=== PATIENT | male | born 1950 | race Caucasian/White ===

== ENCOUNTER → 2017-01-02 | Outpatient (CLI) | payer MEDICARE, BC ==
--- NOTE | 2017-01-05 09:42 | DI ---
EXAM: PET/CT SKULL TO THIGH SUBS [place] [facility] [place]ISTORY: ITS.REASON: C34.12 LUNG CA last chemotherapy 01/03/2017. Lung biopsy 2015. COMPARISON: None available. TECHNIQUE: Without intravenous contrast, axial CT images were obtained from the base of the skull through the mid thigh level for attenuation correction and for PET-CT fusion correlation. Then after the administration of approximately 17 mCi of FDG, PET images were obtained from the base of the skull to the mid thigh region. Additionally, the study was reviewed in PET-CT fusion format as well as 3D-format and axial, sagittal, and coronal reformations. Images of the legs were not obtained. The patient's blood glucose at the time of injection was 92 mg/dl. The current background activity in the liver has a max SUV of 4.0. FINDINGS: NECK: Unremarkable. No abnormal increased metabolic activity identified to suggest metastasis in the soft tissues of the neck. CHEST: There is increased metabolic activity associated with a soft tissue prominence between the left posterolateral second and third rib which may represent a pleural soft tissue mass with a max SUV of 3.93. This abuts a spiculated density within the lung at this level. ABDOMEN: There is a soft tissue mass with a low-density center emanating off the posterior aspect of the left kidney with mural nodularity but only has a max SUV of 2.91. This is of uncertain etiology. This may represent a renal cell carcinoma which may have low metabolic activity. Metastatic disease is also a consideration. Traumatic etiology such as a hematoma is also a consideration although has irregular margins. Hypodense lesion seen at the upper pole of left kidney may represent a cyst. No other abnormal areas of increased metabolic activity is seen within the abdomen to suggest metastasis. PELVIS: Unremarkable. No abnormal increased metabolic activity identified to suggest metastasis in the soft tissues of the pelvis. Activity at the right upper pelvis is thought related to the distal right ureter. BONES: There is bony destructive changes involving the left posterolateral third rib abutting the soft tissue mass between the left third and fourth ribs extending from the pleural space. Additional comments: None. IMPRESSION: 1. There is a soft tissue mass at the posterior lateral left pleural space measuring 3.7 x 2.5 cm abutting a spiculated density within the lung and extending into the intercostal space between the left third and fourth ribs with some bony destruction of the adjacent third rib. This likely represents residual or metastatic disease and has a max SUV of 3.93. 2. There is a soft tissue mass emanating from the posterior aspect of the left kidney measuring at least 4.4 cm x 7.3 cm with a low-density center and mural nodularity. This may have a necrotic center with irregular lobulated soft tissue wall. However, this has only a max SUV of 2.91. A renal cell carcinoma must be considered. These may have low metabolic activity. Metastatic disease is also a consideration. Other etiologies such as a hematoma or other traumatic injury is also a consideration. Correlation is suggested. .
== END ==
LOC: IMA 07:28
PROVIDERS: ATTEND Internal Medicine Hematology & Oncology
DX: C34.12 Malignant neoplasm of upper lobe, left bronchus or lung (principal); M79.89 Other specified soft tissue disorders

== ENCOUNTER 2017-01-23 12:10 | Day surgery (SDC) | payer MEDICARE, BC ==
[~2017-01-23] VITALS: Ht 180.3 cm; Wt 75.0 kg
[~2017-01-23 12:10] MED LIST: ALBU18HF2 ORAL INH; BUDE10.2 INH; CEFAZOLIN 1 GRAM INJECTION IV ONE; LIDOCAINE 1% (10mg/ml) 2ml SDV INJ ONE; LISI1TAB11 PO; NEBI5TAB8 PO; NORMAL SALINE 1,000 ML IV PRN; TRAM50TA4 PO
--- OUTSIDE RECORDS SUMMARY | 2017-01-23 12:14 | XMS REPORT | Referral Summary ---
Author Author [facility] Organization [facility] Address Unknown Phone Unavailable Care Team Providers Care Surfacing Machine Operator Name Role Phone Maya House Primary Care Physician [phone] Encounter VC Date(s): 10/28/16 - 10/28/16 [facility] [address] [place] [address] [place] [address] [place] Discharge Diagnosis: Blood in stool Discharge Diagnosis: Lung cancer Discharge Diagnosis: Cancer of kidney Discharge Disposition: 01-Home or Self Care Attending Physician: Luis Reyes MD Admitting Physician: Luis Reyes MD Referring Physician: Salo Ospina MD Vital Signs Most recent to 1 oldest [Reference Range]: Temperature Tympanic 36.8 degC [36.6-38.1 degC] (10/28/16 1:36 PM) Peripheral Pulse 78 bpm Rate [60-100 bpm] (10/28/16 1:36 PM) Respiratory Rate 18 br/min [14-20 br/min] (10/28/16 1:36 PM) Blood Pressure 128/72 mmHg [90-140/60-90 mmHg] (10/28/16 1:36 PM) SpO2 93 % (10/28/16 1:36 PM) Problem List Condition Effective Dates Status Health Status Informant Acute lumbar back Active pain(Confirmed) Benign essential Active hypertension(Confirm ed) COPD (chronic Active obstructive pulmonary disease)(Confirmed) History of Active alcoholism(Confirmed ) Hyponatremia(Confirm Active ed) Tobacco use Active disorder(Confirmed) Vision Active changes(Confirmed) Allergies, Adverse Reactions, Alerts No Known Allergies Medications Bystolic 5 mg oral tablet 1 1/2 tabs, Oral, Daily, # 135 tabs, 1 Refill(s), Pharmacy: [facility] # [id number], 1 1/2 tabs Oral Daily Start Date: 08/14/16 Status: Ordered lisinopril-hydrochlorothiazide 20 mg-12.5 mg oral tablet 1 tabs, Oral, Daily, # 90 tabs, 1 Refill(s), Pharmacy: [facility] #[id number] Start Date: 08/14/16 Stop Date: 02/10/17 Status: Ordered Miscellaneous DME DME Item CT Guided Needle Biopsy Left Kidney DX: Left Kidney Mass (N28.89) Initiate all standing orders for CT Guided Needle Biopsy, See Instructions, # 1 Each, 0 Refill(s), Supply Start Date: 08/28/16 Status: Ordered Miscellaneous DME DME Item CT Guided Needle Biopsy Left Lung DX: R91.8 RAMONA Mass, See Instructions , # 1 Each, 0 Refill(s), Supply Start Date: 09/05/16 Status: Ordered Symbicort 160 mcg-4.5 mcg/inh inhalation aerosol See Instructions, INHALE TWO PUFFS BY MOUTH TWICE A DAY, # 3 Each, 1 Refill(s), Pharmacy: [facility] #[id number] Start Date: 08/14/16 Status: Ordered traMADol 50 mg oral tablet 50 mg 1 tabs, Oral, q12hr, as needed for pain, S. Bharathilons, # 60 tabs, 0 Refill(s ) Start Date: 08/14/16 Status: Ordered Ventolin HFA 90 mcg/inh inhalation aerosol 2 puffs, Inhalation, QID, as needed for wheezing, # 1 Each, 2 Refill(s), Pharmacy: [facility] #[id number], 2 puffs Inhalation QID,PRN:as needed for wheezing Start Date: 02/14/16 Status: Ordered Results No data available for this section Immunizations Given and Recorded Vaccine Date Status Refusal Reason influenza virus vaccine, live 10/03/13 Given influenza virus vaccine, live 09/20/12 Given pneumococcal 23-polyvalent vaccine 08/07/11 Recorded pneumococcal 23-polyvalent vaccine 03/22/01 Recorded tetanus-diphth toxoids (Td) adult/adol 03/22/01 Given Procedures Procedure Date Related Diagnosis Body Site Appendectomy Hernia Social History Social History Type Response Smoking Status Current every day smoker; Type: Cigars; Tobacco use per day: 1 Pack; Number of years: 51 Assessment and Plan Extracted from: Title: Office Visit Note Author: Lius Reyes MD Date: 10/28/16 Assessment/Plan 1.Blood in stool Ordered: Office Visit Level 4 New 39444 2.Lung cancer Ordered: Office Visit Level 4 New 93414 3.Cancer of kidney Ordered: Office Visit Level 4 New 02975 Plan:Conservative management this time. Given his advanced lung cancer andfinding ofinternal hemorrhoidal disease upon anoscopy would not recommend proceeding with colonoscopy at this juncture in time. I didn't spend a fair amount time reviewing the patient's chartand discussing with the patient hisprior CT scan results, PET scan results,and bone scanresults. Patient did havemore questions about his lung cancer and kidney cancer then he did his rectal bleeding. Patient was found to have a large leftapical lung masswith several metastaticmediastinal lymph nodes as well as direct invasion into his chest wall. Bone scan showed an area of increased uptake on the right fourth ribalthough nocorresponding CT scan findings were present to suggesta lytic lesion. Patient was found to havefairly largemass also involving his left kidneyhighly suspicious for that of a renal cell carcinoma. I did providea copy of all his radiographic results.I informed the patient that as my clinical intuition that his rectal bleeding was likelya result of his recent bouts of constipation and internal hemorrhoids. Given the fact that his rectal bleeding is subsiding and the fact that he is undergoingchemotherapy for metastatic lung cancerrecommendedthat we not proceed with colonoscopy at this time. I informed the patient that if he began to experience increasing rectal bleedingthat he should contact the office and that we would likely prescribed him somehydrocortisone suppositories. If this did not result in any improvement then at that point time mayconsider proceeding with the colonoscopy/endoscopic evaluation. Patient was instructed return back to his oncologist for his ongoing care.
--- OUTSIDE RECORDS SUMMARY | 2017-01-23 12:14 | XMS REPORT | Referral Summary ---
Author Organization Unknown Address Unknown Phone Unavailable Care Team Providers Care Database Developer Name Role Phone Maya House Primary Care Physician [phone] Encounter VC Date(s): 11/13/14 - 11/13/14 [facility] [address] [place] [address] [place] [id number] Discharge Diagnosis: Hypertension NOS Discharge Diagnosis: COPD (chronic obstructive pulmonary disease) Discharge Diagnosis: Tobacco use disorder Discharge Diagnosis: Screening PSA (prostate specific antigen) Discharge Disposition: Home or Self Care Attending Physician: Tru House MD Admitting Physician: Tru House MD Vital Signs Most recent to 1 oldest [Reference Range]: Blood Pressure 130/90 mmHg [90-140/60-90 mmHg] (11/13/14 1:59 PM) Problem List Condition Effective Dates Status Health Status Informant Benign essential Active hypertension(Confirm ed) COPD (chronic Active obstructive pulmonary disease)(Confirmed) History of Active alcoholism(Confirmed ) Tobacco use Active disorder(Confirmed) Allergies, Adverse Reactions, Alerts No Known Allergies Medications Bystolic 5 mg oral tablet 1 1/2 tabs, Oral, Daily, # 135 tabs, 0 Refill(s), Pharmacy: [facility] # [id number], 1 1/2 tabs Oral Daily Start Date: 10/30/14 Status: Ordered lisinopril-hydrochlorothiazide 20 mg-12.5 mg oral tablet 1 tabs, Oral, Daily, # 90 tabs, 1 Refill(s), Pharmacy: [facility] #[id number] Start Date: 11/13/14 Status: Ordered Symbicort 160 mcg-4.5 mcg/inh inhalation aerosol 2 puffs, Inhalation, BID, # 3 Each, 0 Refill(s), [facility] [id number] Start Date: 10/30/14 Stop Date: 01/28/15 Status: Ordered Ventolin HFA 90 mcg/inh inhalation aerosol 2 puffs, Inhalation, q6hr, as needed for wheezing, # 1 Each, 2 Refill(s), Pharmacy: [facility] #[id number], 2 puffs Inhalation q6hr,PRN:as needed for wheezing Start Date: 11/13/14 Status: Ordered Results Hematology Most recent to 1 oldest [Reference Range]: WBC [4.8-10.8 K/uL] 5.5 K/uL (11/13/14 2:30 PM) RBC [4.60-6.20 M/uL] 4.68 M/uL (11/13/14 2:30 PM) Hgb [14.0-18.0 14.3 gm/dL gm/dL] (11/13/14 2:30 PM) Hct [42.0-52.0 %] 38.5 % *LOW* (11/13/14 2:30 PM) MCV [82.0-99.0 fL] 82.3 fL (11/13/14 2:30 PM) MCH [27.0-32.0 pg] 30.6 pg (11/13/14 2:30 PM) MCHC [32.0-36.0 37.1 gm/dL gm/dL] *HI* (11/13/14 2:30 PM) RDW [11.5-14.5 %] 12.3 % (11/13/14 2:30 PM) Platelet [150-400 202 K/uL K/uL] (11/13/14 2:30 PM) MPV [8.8-14.8 fL] 9.5 fL (11/13/14 2:30 PM) Immature 0.0 % Granulocytes (11/13/14 2:30 PM) [0.0-1.0 %] Neutrophils [51-75 57 % %] (11/13/14 2:30 PM) Lymphocytes [20-46 26 % %] (11/13/14 2:30 PM) Monocytes [4-11 %] 17 % *HI* (11/13/14 2:30 PM) Eosinophils [0-4 %] 1 % (11/13/14 2:30 PM) Basophils [0-2 %] 0 % (11/13/14 2:30 PM) Neutro Absolute 3.13 THOUS [1.90-7.00 THOUS] (11/13/14 2:30 PM) Lymph Absolute 1.42 THOUS [0.80-3.30 THOUS] (11/13/14 2:30 PM) [place] Absolute 0.94 THOUS [0.30-1.00 THOUS] (11/13/14 2:30 PM) Eos Absolute 0.03 THOUS [0.00-0.50 THOUS] (11/13/14 2:30 PM) Baso Absolute 0.02 THOUS [0.00-0.20 THOUS] (11/13/14 2:30 PM) Differential Scanned Slide (11/13/14 2:30 PM) Chemistry Most recent to 1 oldest [Reference Range]: Sodium Lvl [135-144 129 mEq/L mEq/L] *LOW* (11/13/14 2:30 PM) Potassium Lvl 4.1 mEq/L [3.5-5.2 mEq/L] (11/13/14 2:30 PM) Chloride [99-111 95 mEq/L mEq/L] *LOW* (11/13/14 2:30 PM) CO2 [23-31 mEq/L] 26 mEq/L (11/13/14 2:30 PM) AGAP [3-20] 8 (11/13/14 2:30 PM) BUN [8-26 mg/dL] 14 mg/dL (11/13/14 2:30 PM) Glucose Lvl [70-99 76 mg/dL mg/dL] (11/13/14 2:30 PM) Creatinine Lvl 0.91 mg/dL [0.72-1.25 mg/dL] (11/13/14 2:30 PM) eGFR [>60 mL/min] >60 mL/min 1 (11/13/14 2:30 PM) Calcium Lvl 9.1 mg/dL [8.9-10.5 mg/dL] (11/13/14 2:30 PM) Albumin Lvl [3.4-4.8 4.0 gm/dL gm/dL] (11/13/14 2:30 PM) Total Protein 6.1 gm/dL [6.2-8.1 gm/dL] *LOW* (11/13/14 2:30 PM) Globulin [1.8-4.0 2.1 gm/dL gm/dL] (11/13/14 2:30 PM) ALT [0-55 unit/L] 15 unit/L (11/13/14 2:30 PM) AST [5-34 unit/L] 18 unit/L (11/13/14 2:30 PM) Alk Phos [40-150 67 unit/L unit/L] (11/13/14 2:30 PM) Bili Total [0.2-1.2 0.6 mg/dL mg/dL] (11/13/14 2:30 PM) PSA (wihout Reflex 1.1 ng/mL 2 Free) [0.0-4.5 (11/13/14 2:30 PM) ng/mL] 1Result Comment: Multiply eGFR results by 1.21 for race. 2Result Comment: AUA PSA Best Practice Guidelines: Age-Adjusted PSA Values by Ethnic Group Age Range Asians - Caucasians Americans 40-49 0-2.0 0-2.0 0-2.5 50-59 0-3.0 0-4.0 0-3.5 60-69 0-4.0 0-4.5 0-4.5 70-79 0-5.0 0-5.5 0-6.5 Urinalysis Most recent to 1 oldest [Reference Range]: UA Color Yellow (11/13/14 2:30 PM) UA Appear Clear (11/13/14 2:30 PM) UA pH [5.0-8.0] 7.0 (11/13/14 2:30 PM) UA Leuk Est Negative [Negative] (11/13/14 2:30 PM) UA Nitrite Negative [Negative] (11/13/14 2:30 PM) UA Protein Negative [Negative] (11/13/14 2:30 PM) UA Glucose Negative [Negative] (11/13/14 2:30 PM) UA Ketones Negative [Negative] (11/13/14 2:30 PM) UA Urobilinogen 0.2 mg/dL [<1.0 mg/dL] (11/13/14 2:30 PM) UA Bili [Negative] Negative (11/13/14 2:30 PM) UA Blood [Negative] Negative (11/13/14 2:30 PM) UA Spec Grav 1.009 [1.003-1.030] (11/13/14 2:30 PM) Type Voided (11/13/14 2:30 PM) Immunizations Vaccine Date Refusal Reason influenza virus vaccine, live 10/03/13 influenza virus vaccine, live 09/20/12 pneumococcal 23-polyvalent vaccine 08/07/11 pneumococcal 23-polyvalent vaccine 03/22/01 tetanus-diphth toxoids (Td) adult/adol 03/22/01 Procedures Procedure Date Related Diagnosis Body Site Colonoscopy Social History Social History Type Response Smoking Status Current every day smoker; Type: Cigarettes Assessment and Plan Extracted from: Title: Ambulatory Patient Education Author: Tru House MD Date: Family Medicine Hypertension As your heart beats, it forces blood through your arteries. This force is your blood pressure. If the pressure is too high, it is called hypertension (HTN) or high blood pressure. HTN is dangerous because you may have it and not know it. High blood pressure may mean that your heart has to work harder to pump blood. Your arteries may be narrow or stiff. The extra work puts you at risk for heart disease, stroke, and other problems. Blood pressure consists of two numbers, a higher number over a lower, 110/72, for example. It is stated as "110 over 72." The ideal is below 120 for the top number (systolic ) and under 80 for the bottom (diastolic ). Write down your blood pressure today. You should pay close attention to your blood pressure if you have certain conditions such as: Heart failure. Prior heart attack. Diabetes Chronic kidney disease. Prior stroke. Multiple risk factors for heart disease. To see if you have HTN, your blood pressure should be measured while you are seated with your arm held at the level of the heart. It should be measured at least twice. A one-time elevated blood pressure reading (especially in the Emergency Department) does not mean that you need treatment. There may be conditions in which the blood pressure is different between your right and left arms. It is important to see your caregiver soon for a recheck. Most people have essential hypertension which means that there is not a specific cause. This type of high blood pressure may be lowered by changing lifestyle factors such as: Stress. Smoking. Lack of exercise. Excessive weight. Drug/tobacco/alcohol use. Eating less salt. Most people do not have symptoms from high blood pressure until it has caused damage to the body. Effective treatment can often prevent, delay or reduce that damage. TREATMENT When a cause has been identified, treatment for high blood pressure is directed at the cause. There are a large number of medications to treat HTN. These fall into several categories, and your caregiver will help you select the medicines that are best for you. Medications may have side effects. You should review side effects with your caregiver. If your blood pressure stays high after you have made lifestyle changes or started on medicines, Your medication(s) may need to be changed. Other problems may need to be addressed. Be certain you understand your prescriptions, and know how and when to take your medicine. Be sure to follow up with your caregiver within the time frame advised ( usually within two weeks) to have your blood pressure rechecked and to review your medications. If you are taking more than one medicine to lower your blood pressure, make sure you know how and at what times they should be taken. Taking two medicines at the same time can result in blood pressure that is too low. SEEK IMMEDIATE MEDICAL CARE IF: You develop a severe headache, blurred or changing vision, or confusion. You have unusual weakness or numbness, or a faint feeling. You have severe chest or abdominal pain, vomiting, or breathing problems. MAKE SURE YOU: Understand these instructions. Will watch your condition. Will get help right away if you are not doing well or get worse. Document Released: 10/05/2006 Document Revised: 12/27/2012 Document Reviewed: [facility] Patient Information 2014 [employer]. No follow up information was provided. Extracted from: Title: Office Visit Note Author: Tru House MD Date: 11/13/14 Assessment/Plan COPD (chronic obstructive pulmonary disease) This issue is stable and appropriate refills, lab, and f/u have been discussed. Samples of symbicort given as a courtesy. Hypertension NOS This issue is stable and appropriate refills, lab, and f/u have been discussed. Samples of bystolic given as a courtesy. Ordered: CBC w/ Differential Comprehensive Metabolic Panel Urinalysis with Culture if Indicated Screening PSA (prostate specific antigen) This issue is stable and appropriate refills, lab, and f/u have been discussed. Ordered: Prostate Specific Antigen Tobacco use disorder Smoking Cessatin was discussed. The patient is welcome to f/u for therapy or medication for smoking cessation at any time that they are willing to quit. Orders: albuterol, 2 puffs, Inhalation, q6hr, as needed for wheezing, # 1 Each , 2 Refill(s), Pharmacy: [facility] #[id number], 2 puffs Inhalation q6hr,PRN: as needed for wheezing lisinopril-hydrochlorothiazide, 1 tabs, Oral, Daily, # 90 tabs, 1 Refill(s), Pharmacy: [facility] #[id number]
--- OUTSIDE RECORDS SUMMARY | 2017-01-23 12:14 | XMS REPORT | Referral Summary ---
Author Author [facility] Organization [facility] Address Unknown Phone Unavailable Care Team Providers Care Quality Control Assessor Name Role Phone Maya House Primary Care Physician [phone] Encounter VC Date(s): 04/23/16 - 04/23/16 [facility] [address] [place], [place] [address] Discharge Diagnosis: Left inguinal hernia Discharge Disposition: 01-Home or Self Care Attending Physician: Wilmer Pan MD Admitting Physician: Wilmer Pan MD Vital Signs Most recent to 1 oldest [Reference Range]: Temperature Oral 36.8 degC [35.8-37.3 degC] (04/23/16 10:43 AM) Peripheral Pulse 63 bpm Rate [60-100 bpm] (04/23/16 10:43 AM) Respiratory Rate 12 br/min [14-20 br/min] *LOW* (04/23/16 10:43 AM) Blood Pressure 174/104 mmHg [90-140/60-90 mmHg] *HI* (04/23/16 10:43 AM) SpO2 95 % (04/23/16 10:43 AM) Problem List Condition Effective Dates Status Health Status Informant Acute lumbar back Active pain(Confirmed) Benign essential Active hypertension(Confirm ed) COPD (chronic Active obstructive pulmonary disease)(Confirmed) History of Active alcoholism(Confirmed ) Hyponatremia(Confirm Active ed) Tobacco use Active disorder(Confirmed) Vision Active changes(Confirmed) Allergies, Adverse Reactions, Alerts No Known Allergies Medications Bystolic 5 mg oral tablet 1 1/2 tabs, Oral, Daily, # 135 tabs, 2 Refill(s), Pharmacy: [facility] # [id number], 1 1/2 tabs Oral Daily Start Date: 02/14/16 Status: Ordered lisinopril-hydrochlorothiazide 20 mg-12.5 mg oral tablet 1 tabs, Oral, Daily, # 90 tabs, 2 Refill(s), Pharmacy: [facility] #[id number] Start Date: 02/14/16 Stop Date: 11/10/16 Status: Ordered [place] 7.5 mg-325 mg oral tablet 1-2 tabs, Oral, q4hr, as needed for pain, # 40 tabs, 0 Refill(s) Start Date: 04/23/16 Stop Date: 04/30/16 Status: Ordered Symbicort 160 mcg-4.5 mcg/inh inhalation aerosol See Instructions, INHALE TWO PUFFS BY MOUTH TWICE A DAY, # 3 Each, 2 Refill(s), Pharmacy: [facility] #[id number] Start Date: 02/14/16 Status: Ordered Ventolin HFA 90 mcg/inh inhalation aerosol 2 puffs, Inhalation, QID, as needed for wheezing, # 1 Each, 2 Refill(s), Pharmacy: [facility] #[id number], 2 puffs Inhalation QID,PRN:as needed for wheezing Start Date: 02/14/16 Status: Ordered Results No data available for this section Immunizations Vaccine Date Refusal Reason influenza virus vaccine, live 10/03/13 influenza virus vaccine, live 09/20/12 pneumococcal 23-polyvalent vaccine 08/07/11 pneumococcal 23-polyvalent vaccine 03/22/01 tetanus-diphth toxoids (Td) adult/adol 03/22/01 Procedures Procedure Date Related Diagnosis Body Site Colonoscopy Social History Social History Type Response Smoking Status Current every day smoker; Type: Cigarettes Assessment and Plan Extracted from: Title: Ambulatory Patient Education Author: Brynn Palacios RN Date: 04/23/16 [facility] Operative Instructions Ambulation Unrestricted Exercise Light walking. Do not strain or lift more than 20 lbs. for 4 weeks. Diet Begin with liquids and light foods then progress to regular diet. No alcoholic beverages for 24hours or while taking pain medication. Personal hygiene Shower after 4 hours At Home care Apply ice to area for 4 hours as needed. If any problems occur or if you have any further questions, please contact your physician's office at . In an emergency, call [phone] (), if you cannot reach your physician. If you find that you cannot contact your physician, but feel that your signs and symptoms warrant a physicians attention, go to an Emergency room which is the closest to you. Activities: Prescription given for discomfort. Resume routine medications. If you are taking the pain medication for more than 72hrs. start an over the counter stool softener such as Colace as directed. Next dose of pain medicine may be given at (Take with food to prevent stomach upset.) Call your surgeon promptly if you have: Fever over 101.5. Pain not relieved by pain medication. Bleeding or unexpected drainage from incision. Extreme redness or swelling around incision. Inability to urinate by 12hrs. after surgery. Persistent nausea and vomiting. Do NOT drive or operate hazardous machinery for 24 hours or while taking pain medication. Do not sign any important documents or make important decisions for 24 hours following surgery. When taking pain medicine, be careful as you walk or climb stairs as dizziness is not unusual. Check temperature every four hours during the day for two days. Surgery Inguinal Hernia, Adult Muscles help keep everything in the body in its proper place. But if a weak spot in the muscles develops, something can poke through. That is called a hernia. When this happens in the lower part of the belly (abdomen), it is called an inguinal hernia. (It takes its name from a part of the body in this region called the inguinal canal.) A weak spot in the wall of muscles lets some fat or part of the small intestine bulge through. An inguinal hernia can develop at any age. Men get them more often than women. CAUSES In adults, an inguinal hernia develops over time. It can be triggered by: Suddenly straining the muscles of the lower abdomen. Lifting heavy objects. Straining to have a bowel movement. Difficult bowel movements ( constipation) can lead to this. Constant coughing. This may be caused by smoking or lung disease. Being overweight. Being . Working at a job that requires long periods of standing or heavy lifting. Having had an inguinal hernia before. One type can be an emergency situation. It is called a strangulated inguinal hernia. It develops if part of the small intestine slips through the weak spot and cannot get back into the abdomen. The blood supply can be cut off. If that happens, part of the intestine may . This situation requires emergency surgery. SYMPTOMS Often, a small inguinal hernia has no symptoms. It is found when a healthcare provider does a physical exam. Larger hernias usually have symptoms. In adults, symptoms may include: A lump in the groin. This is easier to see when the person is standing. It might disappear when lying down. In men, a lump in the scrotum. Pain or burning in the groin. This occurs especially when lifting, straining or coughing. A dull ache or feeling of pressure in the groin. Signs of a strangulated hernia can include: A bulge in the groin that becomes very painful and tender to the touch. A bulge that turns red or purple. Fever, nausea and vomiting. Inability to have a bowel movement or to pass gas. DIAGNOSIS To decide if you have an inguinal hernia, a healthcare provider will probably do a physical examination. This will include asking questions about any symptoms you have noticed. The healthcare provider might feel the groin area and ask you to cough. If an inguinal hernia is felt, the healthcare provider may try to slide it back into the abdomen. Usually no other tests are needed. TREATMENT Treatments can vary. The size of the hernia makes a difference. Options include: Watchful waiting. This is often suggested if the hernia is small and you have had no symptoms. No medical procedure will be done unless symptoms develop. You will need to watch closely for symptoms. If any occur, contact your healthcare provider right away. Surgery. This is used if the hernia is larger or you have symptoms. Open surgery. This is usually an outpatient procedure (you will not stay overnight in a hospital). An cut (incision) is made through the skin in the groin. The hernia is put back inside the abdomen. The weak area in the muscles is then repaired by herniorrhaphy or hernioplasty. Herniorrhaphy: in this type of surgery, the weak muscles are sewn back together. Hernioplasty: a patch or mesh is used to close the weak area in the abdominal wall. Laparoscopy. In this procedure, a surgeon makes small incisions. A thin tube with a tiny video camera (called a laparoscope) is put into the abdomen. The surgeon repairs the hernia with mesh by looking with the video camera and using two long instruments. HOME CARE INSTRUCTIONS After surgery to repair an inguinal hernia: You will need to take pain medicine prescribed by your healthcare provider. Follow all directions carefully. You will need to take care of the wound from the incision. Your activity will be restricted for awhile. This will probably include no heavy lifting for several weeks. You also should not do anything too active for a few weeks. When you can return to work will depend on the type of job that you have. During "watchful waiting" periods, you should: Maintain a healthy weight. Eat a diet high in fiber (fruits, vegetables and whole grains). Drink plenty of fluids to avoid constipation. This means drinking enough water and other liquids to keep your urine clear or pale yellow. Do not lift heavy objects. Do not stand for long periods of time. Quit smoking. This should keep you from developing a frequent cough. SEEK MEDICAL CARE IF: A bulge develops in your groin area. You feel pain, a burning sensation or pressure in the groin. This might be worse if you are lifting or straining. You develop a fever of more than 100.5 F (38.1 C). SEEK IMMEDIATE MEDICAL CARE IF: Pain in the groin increases suddenly. A bulge in the groin gets bigger suddenly and does not go down. For men, there is sudden pain in the scrotum. Or, the size of the scrotum increases. A bulge in the groin area becomes red or purple and is painful to touch. You have nausea or vomiting that does not go away. You feel your heart beating much faster than normal. You cannot have a bowel movement or pass gas. You develop a fever of more than 102.0 F (38.9 C). This information is not intended to replace advice given to you by your health care provider. Make sure you discuss any questions you have with your health care provider. Document Released: 02/21/2010 Document Revised: 12/27/2012 Document Reviewed: ExitCare Patient Information 2016 [employer]. Follow Up With: Where: When: Wilmer Meneses[facility]; [place] [address] Business (1) Within 1 to 2 weeks Comments:
--- OUTSIDE RECORDS SUMMARY | 2017-01-23 12:14 | XMS REPORT | Referral Summary ---
Author Author [facility] Organization [facility] Address Unknown Phone Unavailable Care Team Providers Care Certified Flex Endoscope Reprocessor Name Role Phone Maya House Primary Care Physician [phone] Encounter Date(s): 08/27/16 - 08/27/16 [facility] [address] [place] [address] Discharge Diagnosis: Abnormal chest CT Discharge Disposition: 01-Home or Self Care Attending Physician: Bhavesh Tipton MD Admitting Physician: Bhavesh Tipton MD Vital Signs No data available for this section Problem List Condition Effective Dates Status Health [...] Daily, # 135 tabs, 1 Refill(s), Pharmacy: [facility] # [id number], 1 1/2 tabs Oral Daily Start Date: 08/14/16 Status: Ordered lisinopril-hydrochlorothiazide 20 mg-12.5 mg oral tablet 1 tabs, Oral, Daily, # 90 tabs, 1 Refill(s), Pharmacy: [facility] #[id number] Start Date: 08/14/16 Stop Date: 02/10/17 Status: Ordered Symbicort 160 mcg-4.5 mcg/inh inhalation aerosol See Instructions, INHALE TWO PUFFS BY MOUTH TWICE A DAY, # 3 Each, 1 Refill(s), Pharmacy: [facility] #[id number] Start Date: 08/14/16 Status: Ordered traMADol 50 mg oral tablet 50 mg 1 tabs, Oral, q12hr, as needed for pain, S. Diana, # 60 tabs, 0 Refill(s ) Start Date: 08/14/16 Status: Ordered Ventolin HFA 90 mcg/inh inhalation aerosol 2 puffs, Inhalation, QID, as needed for wheezing, # 1 Each, 2 Refill(s), Pharmacy: [facility] #[id number], 2 puffs Inhalation QID,PRN:as needed for wheezing [...] day smoker; Type: Cigarettes Assessment and Plan No data available for this section
--- OUTSIDE RECORDS SUMMARY | 2017-01-23 12:14 | XMS REPORT | Referral Summary ---
Author Author [facility] Organization [facility] Address Unknown Phone Unavailable Care Team Providers Care Water Plumber Name Role Phone KimberleenolanMaya Primary Care Physician [phone] Encounter VC Date(s): 05/01/16 - 05/01/16 [facility] [place] [address] Discharge Diagnosis: Hernia, inguinal, left Discharge Disposition: 01-Home or Self Care Attending Physician: Wilmer Pan MD Admitting Physician: Wilmer Pan MD Vital Signs No data available for [...] Daily, # 135 tabs, 2 Refill(s), Pharmacy: [facility] # [id number], 1 1/2 tabs Oral Daily Start Date: 02/14/16 Status: Ordered lisinopril-hydrochlorothiazide 20 mg-12.5 mg oral tablet 1 tabs, Oral, Daily, # 90 tabs, 2 Refill(s), Pharmacy: [facility] #[id number] Start Date: 02/14/16 Stop Date: 11/10/16 Status: Ordered Symbicort 160 mcg-4.5 mcg/inh inhalation aerosol See Instructions, INHALE TWO PUFFS BY MOUTH TWICE A DAY, # 3 Each, 2 Refill(s), Pharmacy: [facility] #[id number] Start Date: 02/14/16 Status: Ordered Ventolin HFA 90 mcg/inh inhalation aerosol 2 puffs, Inhalation, QID, as needed for wheezing, # 1 Each, 2 Refill(s), Pharmacy: [facility] #[id number], 2 puffs Inhalation QID,PRN:as needed for wheezing [...] Extracted from: Title: Ambulatory Patient Education Author: Wilmer Pan MD Date: Procedures Open Hernia Repair Open hernia repair is surgery to fix a hernia. A hernia occurs when an internal organ or tissue pushes out through a weak spot in the abdominal wall muscles. Hernias commonly occur in the groin and around the navel. Most hernias tend to get worse over time. Surgery is often done to prevent the hernia from getting bigger, becoming uncomfortable, or becoming an emergency. Emergency surgery may be needed if abdominal contents get stuck in the opening (incarcerated hernia) or the blood supply gets cut off (strangulated hernia). In an open repair, a large cut (incision) is made in the abdomen to perform the surgery. LET YOUR HEALTH CARE PROVIDER KNOW ABOUT: Any allergies you have. All medicines you are taking, including vitamins, herbs, eye drops, creams, and [id number] medicines. Previous problems you or members of your family have had with the use of anesthetics. Any blood disorders you have. Previous surgeries you have had. Medical conditions you have. RISKS AND COMPLICATIONS Generally, this is a safe procedure. However, as with any procedure, complications can occur. Possible complications include: Infection. Bleeding. Nerve injury. Chronic pain. The hernia can come back. Injury to the intestines. BEFORE THE PROCEDURE Ask your health care provider about changing or stopping any regular medicines. Avoid taking aspirin or blood thinners as directed by your health care provider. Do noteat or drink anything after midnight the night before surgery. If you smoke, do not smoke for at least 2 weeks before your surgery. Do not drink alcohol the day before your surgery. Let your health care provider know if you develop a cold or any infection before your surgery. Arrange for someone to drive you home after the procedure or after your hospital stay. Also arrange for someone to help you with activities during recovery. PROCEDURE Small monitors will be put on your body. They are used to check your heart, blood pressure, and oxygen level. An IV access tube will be put into one of your veins. Medicine will be able to flow directly into your body through this IV tube. You might be given a medicine to help you relax (sedative). You will be given a medicine to make you sleep (general anesthetic). A breathing tube may be placed into your lungs during the procedure. A cut (incision) is made over the hernia defect, and the contents are pushed back into the abdomen. If the hernia is small, stitches may be used to bring the muscle edges back together. Typically, a surgeon will place a mesh patch made of man-made material ( synthetic) to cover the defect. The mesh is sewn to healthy muscle. This reduces the risk of the hernia coming back. The tissue and skin over the hernia are then closed with stitches or cj. If the hernia was large, a drain may be left in place to collect excess fluid where the hernia used to be. Bandages (dressings) are used to cover the incision. AFTER THE PROCEDURE You will be taken to a recovery area where your progress will be monitored. If the hernia was small or in the groin (inguinal) region, you will likely be allowed to go home once you are awake, stable, and taking fluids well. If the hernia was large, you may have to wait for your bowel function to return. You may need to stay in the hospital for 23 days until you can eat and your pain is controlled. A drain may be left in place for 57 days. You will be taught how to care for the drain. This information is not intended to replace advice given to you by your health care provider. Make sure you discuss any questions you have with your health care provider. Document Released: 03/31/2002 Document Revised: 07/26/2014 Document Reviewed: ExitCare Patient Information 2016 [employer] [facility]. No follow up information was provided. Extracted from: Title: [facility] Post Op Office Visit Author: Wilmer Pan MD Date: Note Assessment/Plan 1.Hernia, inguinal, left Doing well postoperatively. They understand they are to do no lifting more than 20 pounds for4 weeks from surgery. The Patient understands if they have any problems with nausea or vomiting, their wounds, or any other concern they should call or return to the office. Ordered: Postoperative Est [id number]
--- OUTSIDE RECORDS SUMMARY | 2017-01-23 12:14 | XMS REPORT | Referral Summary ---
Author Author [facility] Organization [facility] Address Unknown Phone Unavailable Care Team Providers Care Deli Bakery Clerk Name Role Phone Maya House Primary Care Physician [phone] Encounter VC Date(s): 06/08/15 - 06/08/15 [facility] [address] [place] [address] [place] [address] Discharge Disposition: 01-Home or Self Care Attending Physician: Tru House MD Admitting Physician: Tru House MD Vital Signs Most recent to 1 oldest [Reference Range]: Blood Pressure 140/100 mmHg [90-140/60-90 mmHg] (06/08/15 10:00 AM) Problem List Condition Effective Dates Status [...] Daily, # 135 tabs, 1 Refill(s), Pharmacy: [facility] # [id number], 1 1/2 tabs Oral Daily Start Date: 06/08/15 Status: Ordered lisinopril-hydrochlorothiazide 20 mg-12.5 mg oral tablet 1 tabs, Oral, Daily, # 90 tabs, 1 Refill(s), Pharmacy: [facility] #[id number] Start Date: 06/08/15 Stop Date: 12/05/15 Status: Ordered Symbicort 160 mcg-4.5 mcg/inh inhalation aerosol 2 puffs, Inhalation, BID, # 3 Each, 1 Refill(s), Pharmacy: [facility] # [id number] Start Date: 06/08/15 Stop Date: 12/05/15 Status: Ordered Ventolin HFA 90 mcg/inh inhalation aerosol 2 puffs, Inhalation, QID, as needed for wheezing, # 1 Each, 2 Refill(s), Pharmacy: [facility] #[id number], 2 puffs Inhalation QID,PRN:as needed for wheezing Start Date: 06/08/15 Status: Ordered Results No data available for [...] Author: Tru House MD Date: Family Medicine Back Exercises Back exercises help treat and prevent back injuries. The goal of back exercises is to increase the strength of your abdominal and back muscles and the flexibility of your back. These exercises should be started when you no longer have back pain. Back exercises include: Pelvic Tilt. Lie on your back with your knees bent. Tilt your pelvis until the lower part of your back is against the floor. Hold this position 5 to 10 sec and repeat 5 to 10 times. Knee to Chest. Pull first 1 knee up against your chest and hold for 20 to 30 seconds, repeat this with the other knee, and then both knees. This may be done with the other leg straight or bent, whichever feels better. Sit-Ups or Curl-Ups. Bend your knees 90 degrees. Start with tilting your pelvis, and do a partial, slow sit-up, lifting your trunk only 30 to 45 degrees off the floor. Take at least 2 to 3 seconds for each sit-up. Do not do sit-ups with your knees out straight. If partial sit-ups are difficult, simply do the above but with only tightening your abdominal muscles and holding it as directed. Hip-Lift. Lie on your back with your knees flexed 90 degrees. Push down with your feet and shoulders as you raise your hips a couple inches off the floor; hold for 10 seconds, repeat 5 to 10 times. Back arches. Lie on your stomach, propping yourself up on bent elbows. Slowly press on your hands, causing an arch in your low back. Repeat 3 to 5 times. Any initial stiffness and discomfort should lessen with repetition over time. Shoulder-Lifts. Lie face down with arms beside your body. Keep hips and torso pressed to floor as you slowly lift your head and shoulders off the floor. Do not overdo your exercises, especially in the beginning. Exercises may cause you some mild back discomfort which lasts for a few minutes; however, if the pain is more severe, or lasts for more than 15 minutes, do not continue exercises until you see your caregiver. Improvement with exercise therapy for back problems is slow. See your caregivers for assistance with developing a proper back exercise program. Document Released: 11/12/2005 Document Revised: 12/27/2012 Document Reviewed: ExitCare Patient Information 2015 [employer]. This information is not intended to replace advice given to you by your health care provider. Make sure you discuss any questions you have with your health care provider. No follow up information was provided. Extracted from: Title: Office Visit Note Author: Tru House MD Date: 06/08/15 Assessment/Plan Acute lumbar back pain Declines xray or work up. Plans so see the chiropractor.Recheck here when willing. Benign essential hypertension This issue is stable and appropriate refills, lab, and f/u have been discussed. The patient reports their blood pressure has been stable at home and is not having any significant or related problems. There has been no chest pain, chest pressure, soa/fallon. COPD (chronic obstructive pulmonary disease) This issue is stable and appropriate refills, lab, and f/u have been discussed. History of alcoholism This issue is stable and appropriate refills, lab, and f /u have been discussed. Hyponatremia Consider lab when willing. Possible side effect of alcohol and/ or bp meds. Tobacco use disorder Smoking Cessatin was discussed. The patient is welcome to f/u for therapy or medication for smoking cessation at any time that they are willing to quit. Vision changes To Dr. Santiago for evaluation. Orders: albuterol, 2 puffs, Inhalation, QID, as needed for wheezing, # 1 Each , 2 Refill(s), Pharmacy: [facility] #[id number], 2 puffs Inhalation QID,PRN: as needed for wheezing budesonide-formoterol, 2 puffs, Inhalation, BID, # 3 Each, 1 Refill(s), Pharmacy: [facility] #[id number] lisinopril-hydrochlorothiazide, 1 tabs, Oral, Daily, # 90 tabs, 1 Refill(s), Pharmacy: [facility] #[id number] nebivolol, 1 1/2 tabs, Oral, Daily, # 135 tabs, 1 Refill(s), Pharmacy: [facility] #[id number], 1 1/2 tabs Oral Daily
--- OUTSIDE RECORDS SUMMARY | 2017-01-23 12:14 | XMS REPORT | Continuity of Care Document ---
Author Author [facility] Organization [facility] Address Unknown Phone Unavailable Allergies Active Description Code Type Severity Reaction Onset Reported/Identified Relationship to Patient Clinical Status Yes No Known Allergies NKMA N/A N/A 11/13/2014 Medications Problems Date Dx Coded Attending Type Code Diagnosis Diagnosed By 09/04/2016 Danuta WHELAN, Bhavesh Miramontes N28.89 OTHER SPECIFIED DISORDERS OF KIDNEY AND Procedures Results Test Result Range CBC With Platelet No Differential - 08/22/16 14:35 HCT 39.8 % 42.0-52.0 HGB 13.9 g/dL 14.0-18.0 MCH 29.9 pg 27.0-32.0 MCHC 34.9 g/dL 32.0-36.0 MCV 85.6 fL 82.0-99.0 MPV 9.5 fL 8.8-14.8 Platelet Count 255 K/uL 150-400 RBC 4.65 10*6/uL 4.60-6.20 RDW 12.7 % 11.5-14.5 WBC 8.0 K/uL 4.8-10.8 Encounters ACCT No. Visit Date/Time Discharge Status Pt. Type Provider Facility Loc./Unit Complaint [id number] 10/28/2016 13:28:00 2016 23:59:00 DIS Outpatient Luis Whitney [facility] New Surg NEEDS C-SCOPE/MATTAR [id number] 08/29/2016 15:25:00 2015 23:59:00 DIS Outpatient Micky Engel [facility] Mur Uro NPV. RENAL CARCINOMA [id number] 08/27/2016 13:53:00 2015 23:59:00 DIS Outpatient Bhavesh Tipton [facility] Mur Pulm PFT/CA/LUNG MASS [id number] 08/27/2016 13:51:00 2015 23:59:00 DIS Outpatient Abu-Ca, Raid [facility] Mur Pulm NPV/LUINSTRA/LUNG MASS [id number] 08/22/2016 13:47:00 2015 23:59:00 DIS Outpatient Tru House [facility] New FM DISCUSS ABNORMAL CT [id number] 08/14/2016 13:41:00 2015 23:59:00 DIS Outpatient Tru House [facility] New FM TCPA, L shoulder pain [id number] 05/01/2016 09:39:00 2015 23:59:00 DIS Outpatient Wilmer Pan [facility] FC Surg 1-2 wk po left ing hernia repair [id number] 04/23/2016 10:20:00 2015 15:57:00 DIS Outpatient Wilmer Pan [facility] ASC Surgery SURGERY [id number] 04/10/2016 17:02:00 2015 23:59:00 DIS Outpatient Carina Navarro W [facility] Mur Card I10 / EKG / NAVARRO [id number] 04/10/2016 12:49:00 2015 23:59:00 DIS Outpatient Wilmer Pan [facility] FC Surg POSSIBLE INGUINAL HERNIA [id number] 04/09/2016 13:03:00 2015 23:59:00 DIS Outpatient Tru House [facility] New FM hernia [id number] 02/14/2016 13:08:00 2015 23:59:00 DIS Outpatient Tru House [facility] New FM med check [id number] 06/08/2015 09:50:00 2014 23:59:00 DIS Outpatient Tru House [facility] New FM med check [id number] 11/13/2014 13:49:00 2014 23:59:00 DIS Outpatient Tru House [facility] New FM med check
--- OUTSIDE RECORDS SUMMARY | 2017-01-23 12:14 | XMS REPORT | Referral Summary ---
Author Author [facility] Organization [facility] Address Unknown Phone Unavailable Care Team Providers Care Leadership Program Intern Name Role Phone Maya House Primary Care Physician [phone] Encounter VC Date(s): 08/14/16 - 08/14/16 [facility] [address] [place] [address]- Discharge Diagnosis: COPD (chronic obstructive pulmonary disease) Discharge Diagnosis: Acute lumbar back pain Discharge Diagnosis: Benign essential hypertension Discharge Diagnosis: History of alcoholism Discharge Diagnosis: Tobacco use disorder Discharge Diagnosis: Acute pain of left shoulder Discharge Disposition: 01-Home or Self Care Attending Physician: Tru House MD Admitting Physician: Tru House MD Vital Signs Most recent to 1 oldest [Reference Range]: Blood Pressure 120/70 mmHg [90-140/60-90 mmHg] (08/14/16 1:51 PM) Problem List Condition Effective Dates Status [...] Daily, # 135 tabs, 1 Refill(s), Pharmacy: [facility] # [id number], 1 1/2 tabs Oral Daily Start Date: 08/14/16 Status: Ordered lisinopril-hydrochlorothiazide 20 mg-12.5 mg oral tablet 1 tabs, Oral, Daily, # 90 tabs, 1 Refill(s), Pharmacy: [facility] #[id number] Start Date: 08/14/16 Stop Date: 02/10/17 Status: Ordered Symbicort 160 mcg-4.5 mcg/inh inhalation aerosol See Instructions, INHALE TWO PUFFS BY MOUTH TWICE A DAY, # 3 Each, 1 Refill(s), Pharmacy: [facility] #[id number] Start Date: 08/14/16 Status: Ordered traMADol 50 mg oral tablet 50 mg 1 tabs, Oral, q12hr, as needed for pain, S. Diana, # 60 tabs, 0 Refill(s ) Start Date: 08/14/16 Status: Ordered Ventolin HFA 90 mcg/inh inhalation aerosol 2 puffs, Inhalation, QID, as needed for wheezing, # 1 Each, 2 Refill(s), Pharmacy: [facility] #[id number], 2 puffs Inhalation QID,PRN:as needed for wheezing [...] Cigarettes Assessment and Plan Extracted from: Title: Office Visit Note Author: Tru House MD Date: 08/14/16 Assessment/Plan Acute lumbar back pain Xrays pending to start. Consider referral or CT if persistent. Possible MRI if needed. To ER if worse. A work/school note was offered and deferred by the patient. Acute pain of left shoulder, Left shoulder pain See above. Ultram 50mg po bid prn, may cause sedation. Ordered: XR Chest 2 Views XR Shoulder Complete Left XR Spine Cervical 2 or 3 Views Benign essential hypertension This issue was reviewed, appears stable, and current therapy continued except as mentioned. Appropriate lab was reviewed from the most recent appropriate entry and lab was ordered if needed in the cpoe /nursing orders, and follow up recommended generally in 90 days and no later then six months. The patient reports their blood pressure has been stable at home and is not having any significant or related problems. There has been no chest pain, chest pressure, soa/fallon. Samples of the new medication were provided as a courtesy. Side effects were discussed and follow up was recommended. Bystolic given as a courtesy. COPD (chronic obstructive pulmonary disease) This issue was reviewed, appears stable, and current therapy continued except as mentioned. Appropriate lab was reviewed from the most recent appropriate entry and lab was ordered if needed in the cpoe/nursing orders, and follow up recommended generally in 90 days and no later then six months. Samples of the new medication were provided as a courtesy. Side effects were discussed and follow up was recommended. Samples of symbicort given. History of alcoholism This issue was reviewed, appears stable, and current therapy continued except as mentioned. Appropriate lab was reviewed from the most recent appropriate entry and lab was ordered if needed in the cpoe/nursing orders, and follow up recommended generally in 90 days and no later then six months. Tobacco use disorder Smoking Cessation was discussed. The patient is welcome to f/u for therapy or medication for smoking cessation at any time that they are willing to quit.
--- OUTSIDE RECORDS SUMMARY | 2017-01-23 12:14 | XMS REPORT | Referral Summary ---
Author Author [facility] Organization [facility] Address Unknown Phone Unavailable Care Team Providers Care Arc Trimmer Name Role Phone Maya House Primary Care Physician [phone] Encounter VC Date(s): 02/14/16 - 02/14/16 [facility] [address] [place] [address] [place] [address] Discharge Disposition: 01-Home or Self Care Attending Physician: Tru House MD Admitting Physician: Tru House MD Vital Signs Most recent to 1 oldest [Reference Range]: Blood Pressure 140/90 mmHg [90-140/60-90 mmHg] (02/14/16 1:20 PM) Problem List Condition Effective Dates Status [...] Daily, # 135 tabs, 2 Refill(s), Pharmacy: [facility] # [id number], 1 1/2 tabs Oral Daily Start Date: 02/14/16 Status: Ordered lisinopril-hydrochlorothiazide 20 mg-12.5 mg oral tablet 1 tabs, Oral, Daily, # 90 tabs, 2 Refill(s), Pharmacy: [facility] #[id number] Start Date: 02/14/16 Stop Date: 11/10/16 Status: Ordered Symbicort 160 mcg-4.5 mcg/inh inhalation aerosol See Instructions, INHALE TWO PUFFS BY MOUTH TWICE A DAY, # 3 Each, 2 Refill(s), Pharmacy: [facility] #[id number] Start Date: 02/14/16 Status: Ordered Ventolin HFA 90 mcg/inh inhalation aerosol 2 puffs, Inhalation, QID, as needed for wheezing, # 1 Each, 2 Refill(s), Pharmacy: [facility] #[id number], 2 puffs Inhalation QID,PRN:as needed for wheezing Start Date: 02/14/16 Status: Ordered Results Hematology Most recent to 1 oldest [Reference Range]: WBC [4.8-10.8 6.6 10*3/uL 10*3/uL] (02/14/16 1:50 PM) RBC [4.60-6.20] 4.86 (02/14/16 1:50 PM) Hgb [14.0-18.0 14.9 gm/dL gm/dL] (02/14/16 1:50 PM) Hct [42.0-52.0 %] 41.6 % *LOW* (02/14/16 1:50 PM) MCV [82.0-99.0 fL] 85.6 fL (02/14/16 1:50 PM) MCH [27.0-32.0 pg] 30.7 pg (02/14/16 1:50 PM) MCHC [32.0-36.0 35.8 gm/dL gm/dL] (02/14/16 1:50 PM) RDW [11.5-14.5 %] 13.4 % (02/14/16 1:50 PM) Platelet [150-400 237 10*3/uL 10*3/uL] (02/14/16 1:50 PM) MPV [8.8-14.8 fL] 9.6 fL (02/14/16 1:50 PM) Immature 0.0 % Granulocytes (02/14/16 1:50 PM) [0.0-1.0 %] Neutrophils [51-75 61 % %] (02/14/16 1:50 PM) Lymphocytes [20-46 23 % %] (02/14/16 1:50 PM) Monocytes [4-11 %] 14 % *HI* (02/14/16 1:50 PM) Eosinophils [0-4 %] 1 % (02/14/16 1:50 PM) Basophils [0-2 %] 1 % (02/14/16 1:50 PM) Neutro Absolute 4.06 10*3 [1.90-7.00 10*3] (02/14/16 1:50 PM) Lymph Absolute 1.54 10*3 [0.80-3.30 10*3] (02/14/16 1:50 PM) [place] Absolute 0.91 10*3 [0.30-1.00 10*3] (02/14/16 1:50 PM) Eos Absolute 0.09 10*3 [0.00-0.50 10*3] (02/14/16 1:50 PM) Baso Absolute 0.03 10*3 [0.00-0.20 10*3] (02/14/16 1:50 PM) Chemistry Most recent to 1 oldest [Reference Range]: Sodium Lvl [135-144 131 mEq/L mEq/L] *LOW* (02/14/16 1:50 PM) Potassium Lvl 4.2 mEq/L [3.5-5.2 mEq/L] (02/14/16 1:50 PM) Chloride [99-111 98 mEq/L mEq/L] *LOW* (02/14/16 1:50 PM) CO2 [23-31 mEq/L] 28 mEq/L (02/14/16 1:50 PM) AGAP [3-20] 5 (02/14/16 1:50 PM) BUN [8-26 mg/dL] 18 mg/dL (02/14/16 1:50 PM) Glucose Lvl [70-99 72 mg/dL mg/dL] (02/14/16 1:50 PM) Creatinine Lvl 0.94 mg/dL [0.72-1.25 mg/dL] (02/14/16 1:50 PM) eGFR [>60 mL/min] >60 mL/min 1 (02/14/16 1:50 PM) Calcium Lvl 9.2 mg/dL [8.9-10.5 mg/dL] (02/14/16 1:50 PM) Albumin Lvl [3.4-4.8 4.2 gm/dL gm/dL] (02/14/16 1:50 PM) Total Protein 6.3 gm/dL [6.2-8.1 gm/dL] (02/14/16 1:50 PM) Globulin [1.8-4.0 2.1 gm/dL gm/dL] (02/14/16 1:50 PM) ALT [0-55 U/L] 16 U/L (02/14/16 1:50 PM) AST [5-34 U/L] 20 U/L (02/14/16 1:50 PM) Alk Phos [40-150 88 U/L U/L] (02/14/16 1:50 PM) Bili Total [0.2-1.2 0.6 mg/dL mg/dL] (02/14/16 1:50 PM) PSA (wihout Reflex 1.8 ng/mL 2 Free) [0.0-4.5 (02/14/16 1:50 PM) ng/mL] Chol [0-199 mg/dL] 158 mg/dL (02/14/16 1:50 PM) Trig [0-149 mg/dL] 94 mg/dL (02/14/16 1:50 PM) HDL [40-84 mg/dL] 47 mg/dL (02/14/16 1:50 PM) LDL [0-130 mg/dL] 92 mg/dL (02/14/16 1:50 PM) VLDL Cholesterol 19 mg/dL [0-28 mg/dL] (02/14/16 1:50 PM) Cardiac Risk 3.4 [0.0-5.7] (02/14/16 1:50 PM) 1Result Comment: Multiply eGFR results by 1.21 for race. 2Result Comment: AUA PSA Best Practice Guidelines: Age-Adjusted PSA Values by Ethnic Group Age Range Asians - Caucasians Americans 40-49 0-2.0 0-2.0 0-2.5 50-59 0-3.0 0-4.0 0-3.5 60-69 0-4.0 0-4.5 0-4.5 70-79 0-5.0 0-5.5 0-6.5 Immunizations Vaccine Date Refusal Reason influenza virus vaccine, live 10/03/13 influenza virus vaccine, live 09/20/12 pneumococcal 23-polyvalent vaccine 08/07/11 pneumococcal 23-polyvalent vaccine 03/22/01 tetanus-diphth toxoids (Td) adult/adol 03/22/01 Procedures Procedure Date Related Diagnosis Body Site Collection of venous blood by venipuncture 02/14/16 Colonoscopy Social History Social History Type Response Smoking Status Current every day smoker; Type: Cigarettes Assessment and Plan Extracted from: Title: Ambulatory Patient Education Author: Tru House MD Date: Family Medicine Asthma Asthma is a recurring condition in which the airways tighten and narrow. Asthma can make it difficult to breathe. It can cause coughing, wheezing, and shortness of breath. Asthma episodes, also called asthma attacks, range from minor to life-threatening. Asthma cannot be cured, but medicines and lifestyle changes can help control it. CAUSES Asthma is believed to be caused by inherited (genetic) and environmental factors , but its exact cause is unknown. Asthma may be triggered by allergens, lung infections, or irritants in the air. Asthma triggers are different for each person. Common triggers include: Animal dander. Dust mites. Cockroaches. Pollen from trees or grass. Mold. Smoke. Air pollutants such as dust, household polysilicon preparation worker, hair sprays, aerosol sprays, paint fumes, strong chemicals, or strong odors. Cold air, weather changes, and winds (which increase molds and pollens in the air). Strong emotional expressions such as crying or laughing hard. Stress. Certain medicines (such as aspirin) or types of drugs (such as beta- blockers). Sulfites in foods and drinks. Foods and drinks that may contain sulfites include dried fruit, potato chips, and sparkling grape juice. Infections or inflammatory conditions such as the flu, a cold, or an inflammation of the nasal membranes (rhinitis). Gastroesophageal reflux disease (GERD). Exercise or strenuous activity. SYMPTOMS Symptoms may occur immediately after asthma is triggered or many hours later. Symptoms include: Wheezing. Excessive nighttime or early childhood education worker coughing. Frequent or severe coughing with a common cold. Chest tightness. Shortness of breath. DIAGNOSIS The diagnosis of asthma is made by a review of your medical history and a physical exam. Tests may also be performed. These may include: Lung function studies. These tests show how much air you breathe in and out. Allergy tests. Imaging tests such as X-rays. TREATMENT Asthma cannot be cured, but it can usually be controlled. Treatment involves identifying and avoiding your asthma triggers. It also involves medicines. There are 2 classes of medicine used for asthma treatment: Controller medicines. These prevent asthma symptoms from occurring. They are usually taken every day. Reliever or rescue medicines. These quickly relieve asthma symptoms. They are used as needed and provide short-term relief. Your health care provider will help you create an asthma action plan. An asthma action plan is a written plan for managing and treating your asthma attacks. It includes a list of your asthma triggers and how they may be avoided. It also includes information on when medicines should be taken and when their dosage should be changed. An action plan may also involve the use of a device called a peak flow meter. A peak flow meter measures how well the lungs are working. It helps you monitor your condition. HOME CARE INSTRUCTIONS Take medicines only as directed by your health care provider. Speak with your health care provider if you have questions about how or when to take the medicines. Use a peak flow meter as directed by your health care provider. Record and keep track of readings. Understand and use the action plan to help minimize or stop an asthma attack without needing to seek medical care. Control your home environment in the following ways to help prevent asthma attacks: Do not smoke. Avoid being exposed to secondhand smoke. Change your heating and air conditioning filter regularly. Limit your use of fireplaces and wood stoves. Get rid of pests (such as roaches and mice) and their droppings. Throw away plants if you see mold on them. Clean your floors and dust regularly. Use unscented cleaning products. Try to have someone else vacuum for you regularly. Stay out of rooms while they are being vacuumed and for a short while afterward. If you vacuum, use a dust mask from a hardware store, a double-layered or microfilter vacuum finish cleaner bag, or a vacuum finish cleaner with a HEPA filter. Replace carpet with wood, tile, or vinyl jared. Carpet can trap dander and dust. Use allergy-proof pillows, mattress covers, and box spring covers. Wash bed sheets and blankets every week in hot water and dry them in a dryer. Use blankets that are made of polyester or cotton. Clean bathrooms and jaziel with bleach. If possible, have someone repaint the prather in these rooms with mold-resistant paint. Keep out of the rooms that are being cleaned and painted. Wash hands frequently. SEEK MEDICAL CARE IF: You have wheezing, shortness of breath, or a cough even if taking medicine to prevent attacks. The colored mucus you cough up (sputum) is thicker than usual. Your sputum changes from clear or white to yellow, green, mejia, or bloody. You have any problems that may be related to the medicines you are taking (such as a rash, itching, swelling, or trouble breathing). You are using a reliever medicine more than 23 times per week. Your peak flow is still at 5079% of your personal best after following your action plan for 1 hour. You have a fever. SEEK IMMEDIATE MEDICAL CARE IF: You seem to be getting worse and are unresponsive to treatment during an asthma attack. You are short of breath even at rest. You get short of breath when doing very little physical activity. You have difficulty eating, drinking, or talking due to asthma symptoms. You develop chest pain. You develop a fast heartbeat. You have a bluish color to your lips or fingernails. You are light-headed, dizzy, or faint. Your peak flow is less than 50% of your personal best. MAKE SURE YOU: Understand these instructions. Will watch your condition. Will get help right away if you are not doing well or get worse. This information is not intended to replace advice given to you by your health care provider. Make sure you discuss any questions you have with your health care provider. Document Released: 10/05/2006 Document Revised: 02/19/2015 Document Reviewed: ExitCare Patient Information 2015 [email or web address]. No follow up information was provided. Extracted from: Title: Office Visit Note Author: Tur House MD Date: 02/14/16 Assessment/Plan COPD (chronic obstructive pulmonary disease) This [...] were discussed and follow up was recommended. Symbicort and proair albuterol given as a courtesy. High cholesterol This issue was reviewed, appears stable, and current therapy continued except as mentioned. Appropriate lab was reviewed from the most recent appropriate entry and lab was ordered if needed in the cpoe/nursing orders, and follow up recommended generally in 90 days and no later then six months. Lab pending. Ordered: Lipid Panel History of alcoholism This issue was reviewed, appears stable, and current therapy continued except as mentioned. Appropriate lab was reviewed from the most recent appropriate entry and lab was ordered if needed in the cpoe/nursing orders, and follow up recommended generally in 90 days and no later then six months. HTN (hypertension) This issue was reviewed, appears stable, and [...] and follow up was recommended. Samples of bystolic given. Ordered: CBC w/ Differential Comprehensive Metabolic Panel Urinalysis with Culture if Indicated Screening PSA (prostate specific antigen) Lab pending. Refuses colonoscopy. Ordered: Prostate Specific Antigen Orders: albuterol, 2 puffs, Inhalation, QID, as needed for wheezing, # 1 Each , 2 Refill(s), Pharmacy: [facility] #[id number], 2 puffs Inhalation QID,PRN: as needed for wheezing budesonide-formoterol, See Instructions, INHALE TWO PUFFS BY MOUTH TWICE A DAY , # 3 Each, 2 Refill(s), Pharmacy: [facility] #[id number] lisinopril-hydrochlorothiazide, 1 tabs, Oral, Daily, # 90 tabs, 2 Refill(s), Pharmacy: [facility] #[id number] nebivolol, 1 1/2 tabs, Oral, Daily, # 135 tabs, 2 Refill(s), Pharmacy: [facility] #[id number], 1 1/2 tabs Oral Daily
--- OUTSIDE RECORDS SUMMARY | 2017-01-23 12:14 | XMS REPORT | Referral Summary ---
Author Author [facility] Organization [facility] Address Unknown Phone Unavailable Care Team Providers Care Stage Set Up Worker Name Role Phone Maya House Primary Care Physician [phone] Encounter VC Date(s): 09/17/16 - 09/17/16 [facility] [address] [place], [place] [address] Discharge Disposition: 01-Home or Self Care Attending Physician: Bhavesh Tipton MD Admitting Physician: Bhavesh Tipton MD Vital Signs Most recent to 1 oldest [Reference Range]: Temperature Temporal 36.6 degC Artery [36.3-37.8 (09/17/16 8:51 AM) degC] Peripheral Pulse 64 bpm Rate [60-100 bpm] (09/17/16 9:40 AM) Heart Rate Monitored 84 bpm [60-100 bpm] (09/17/16 3:51 PM) Respiratory Rate 20 br/min [14-20 br/min] (09/17/16 3:51 PM) Blood Pressure 143/103 mmHg [90-140/60-90 mmHg] *HI* (09/17/16 3:51 PM) Mean Arterial 118 mmHg Pressure, Cuff (09/17/16 3:51 PM) SpO2 96 % (09/17/16 3:51 PM) Problem List Condition Effective Dates Status [...] Daily, # 135 tabs, 1 Refill(s), Pharmacy: [facility] # [id number], 1 1/2 tabs Oral Daily Start Date: 08/14/16 Status: Ordered lisinopril-hydrochlorothiazide 20 mg-12.5 mg oral tablet 1 tabs, Oral, Daily, # 90 tabs, 1 Refill(s), Pharmacy: [facility] #[id number] Start Date: 08/14/16 Stop Date: 02/10/17 Status: [...] DAY, # 3 Each, 1 Refill(s), Pharmacy: [facility] #[id number] Start Date: 08/14/16 Status: Ordered traMADol 50 mg oral tablet 50 mg 1 tabs, Oral, q12hr, as needed for pain, SLong Ortiz, # 60 tabs, 0 Refill(s ) Start Date: 08/14/16 Status: Ordered Ventolin HFA 90 mcg/inh inhalation aerosol 2 puffs, Inhalation, QID, as needed for wheezing, # 1 Each, 2 Refill(s), Pharmacy: [facility] #[id number], 2 puffs Inhalation QID,PRN:as needed for wheezing Start Date: 02/14/16 Status: Ordered Results Hematology Most recent to 1 oldest [Reference Range]: WBC [4.8-10.8 7.2 10*3/uL 10*3/uL] (09/17/16 9:00 AM) RBC [4.60-6.20] 4.72 (09/17/16 9:00 AM) Hgb [14.0-18.0 14.5 gm/dL gm/dL] (09/17/16 9:00 AM) Hct [42.0-52.0 %] 41.0 % *LOW* (09/17/16 9:00 AM) MCV [82.0-99.0 fL] 86.9 fL (09/17/16 9:00 AM) MCH [27.0-32.0 pg] 30.7 pg (09/17/16 9:00 AM) MCHC [32.0-36.0 35.4 gm/dL gm/dL] (09/17/16 9:00 AM) RDW [11.5-14.5 %] 13.1 % (09/17/16 9:00 AM) Platelet [150-400 248 10*3/uL 10*3/uL] (09/17/16 9:00 AM) MPV [9.4-12.3 fL] 8.9 fL *LOW* (09/17/16 9:00 AM) Immature 0.1 % Granulocytes (09/17/16:00 AM) [0.0-1.0 %] Neutrophils [51-75 65 % %] (09/17/16 9:00 AM) Lymphocytes [20-46 22 % %] (09/17/16 9:00 AM) Monocytes [4-11 %] 12 % *HI* (09/17/16 9:00 AM) Eosinophils [0-4 %] 1 % (09/17/16 9:00 AM) Basophils [0-2 %] 0 % (09/17/16 9:00 AM) Neutro Absolute 4.63 10*3 [1.90-7.00 10*3] (09/17/16 9:00 AM) Lymph Absolute 1.56 10*3 [0.80-3.30 10*3] (09/17/16 9:00 AM) [place] Absolute 0.88 10*3 [0.30-1.00 10*3] (09/17/16 9:00 AM) Eos Absolute 0.06 10*3 [0.00-0.50 10*3] (09/17/16 9:00 AM) Baso Absolute 0.03 10*3 [0.00-0.20 10*3] (09/17/16 9:00 AM) Coagulation Most recent to 1 oldest [Reference Range]: INR [0.9-1.2] 1.1 (09/17/16 9:00 AM) PTT [25.0-35.0 33.6 seconds seconds] (09/17/16 9:00 AM) Immunizations Vaccine Date Refusal Reason influenza virus vaccine, live 10/03/13 influenza virus vaccine, live 09/20/12 pneumococcal 23-polyvalent vaccine 08/07/11 pneumococcal 23-polyvalent vaccine 03/22/01 tetanus-diphth toxoids (Td) adult/adol 03/22/01 Procedures Procedure Date Related Diagnosis Body Site Appendectomy Colonoscopy Hernia Social History Social History Type Response Smoking Status Current every day smoker; Type: Cigars; Tobacco use per day: 1 Pack; Number of years: 51 Assessment and Plan No data available for this section
--- OUTSIDE RECORDS SUMMARY | 2017-01-23 12:14 | XMS REPORT | Referral Summary ---
Author Author [facility] Organization [facility] Address Unknown Phone Unavailable Care Team Providers Care Requisition Approver Name Role Phone Maya House Primary Care Physician [phone] Encounter Date(s): 08/22/16 - 08/22/16 [facility] [address] [place] [address]- Discharge Diagnosis: Benign essential hypertension Discharge Diagnosis: COPD (chronic obstructive pulmonary disease) Discharge Diagnosis: Hyponatremia Discharge Diagnosis: Neck pain Discharge Diagnosis: Renal mass Discharge Diagnosis: Lung mass Discharge Diagnosis: Tobacco use disorder Discharge Disposition: 01-Home or Self Care Attending Physician: Tru House MD Admitting Physician: Tru House MD Vital Signs Most recent to 1 oldest [Reference Range]: Blood Pressure 140/90 mmHg [90-140/60-90 mmHg] (08/22/16 2:08 PM) Problem List Condition Effective Dates Status [...] Daily, # 135 tabs, 1 Refill(s), Pharmacy: [facility] # [id number], 1 1/2 tabs Oral Daily Start Date: 08/14/16 Status: Ordered lisinopril-hydrochlorothiazide 20 mg-12.5 mg oral tablet 1 tabs, Oral, Daily, # 90 tabs, 1 Refill(s), Pharmacy: [facility] #[id number] Start Date: 08/14/16 Stop Date: 02/10/17 Status: Ordered Symbicort 160 mcg-4.5 mcg/inh inhalation aerosol See Instructions, INHALE TWO PUFFS BY MOUTH TWICE A DAY, # 3 Each, 1 Refill(s), Pharmacy: [facility] #[id number] Start Date: 08/14/16 Status: Ordered traMADol 50 mg oral tablet 50 mg 1 tabs, Oral, q12hr, as needed for pain, S. Bharathilons, # 60 tabs, 0 Refill(s ) Start Date: 08/14/16 Status: Ordered Ventolin HFA 90 mcg/inh inhalation aerosol 2 puffs, Inhalation, QID, as needed for wheezing, # 1 Each, 2 Refill(s), Pharmacy: [facility] #[id number], 2 puffs Inhalation QID,PRN:as needed for wheezing Start Date: 02/14/16 Status: Ordered Results Hematology Most recent to 1 oldest [Reference Range]: WBC [4.8-10.8 8.0 10*3/uL 10*3/uL] (08/22/16 2:35 PM) RBC [4.60-6.20] 4.65 (08/22/16 2:35 PM) Hgb [14.0-18.0 13.9 gm/dL gm/dL] *LOW* (08/22/16 2:35 PM) Hct [42.0-52.0 %] 39.8 % *LOW* (08/22/16 2:35 PM) MCV [82.0-99.0 fL] 85.6 fL (08/22/16 2:35 PM) MCH [27.0-32.0 pg] 29.9 pg (08/22/16 2:35 PM) MCHC [32.0-36.0 34.9 gm/dL gm/dL] (08/22/16 2:35 PM) RDW [11.5-14.5 %] 12.7 % (08/22/16 2:35 PM) Platelet [150-400 255 10*3/uL 10*3/uL] (08/22/16 2:35 PM) MPV [8.8-14.8 fL] 9.5 fL (08/22/16 2:35 PM) Immunizations Vaccine Date Refusal Reason influenza [...] Patient Education Author: Tru House MD Date: Allergy Asthma, Adult Asthma is a recurring condition in which [...] Smoke. Air pollutants such as dust, household highway safety engineer, hair sprays, aerosol sprays, paint fumes, strong [...] later. Symptoms include: Wheezing. Excessive nighttime or surveying or spatial science technician coughing. Frequent or severe coughing with a [...] hardware store, a double-layered or microfilter vacuum wet cleaner machine bag, or a vacuum wet cleaner machine with a HEPA filter. Replace carpet with [...] care provider. Document Released: 10/05/2006 Document Revised: 10/26/2015 Document Reviewed: [employer] Interactive Patient Education 2016 [employer] No follow up information was provided. Extracted from: Title: Office Visit Note Author: Tru House MD Date: 08/22/16 Assessment/Plan Benign essential hypertension This issue was reviewed, appears stable, and current therapy continued except as mentioned. Appropriate lab was reviewed from the most recent appropriate entry and lab was ordered if needed in the cpoe /nursing orders, and follow up recommended generally in 90 days and no later then six months. The patient had an elevated blood pressure reading and is to monitor their bp and call with a report if consistently > 140/90. COPD (chronic obstructive pulmonary disease) This issue was reviewed, appears stable, and current therapy continued except as mentioned. Appropriate lab was reviewed from the most recent appropriate entry and lab was ordered if needed in the cpoe/nursing orders, and follow up recommended generally in 90 days and no later then six months. We discussed several options for treatment for this condition. The patient declined any changes or other treatments at this time. Declines inhalers. Hyponatremia This issue was reviewed, appears stable, and current therapy continued except as mentioned. Appropriate lab was reviewed from the most recent appropriate entry and lab was ordered if needed in the cpoe/nursing orders, and follow up recommended generally in 90 days and no later then six months. Ordered: CBC Hemogram Urinalysis with Culture if Indicated Lung mass CT reviewed. To Pulmonology brody. IMPRESSION: Findings are concerning for synchronous primary cancers of the lung and kidney. 1. Left apical subpleural irregular pulmonary mass is concerning for primary pulmonary neoplasm. There are additional pulmonary nodules in the left upper lobe as well as in the left lower lobe which could represent metastatic foci. No contralateral pulmonary nodules. 2. Left hilar lymphadenopathy. No mediastinal or contralateral hilar lymphadenopathy. 3. Large centrally necrotic mass arising from the left kidney is compatible with renal cell neoplasm. Recommend CT of the abdomen and pelvis with contrast for staging purposes. [1] Ordered: CBC Hemogram Urinalysis with Culture if Indicated Neck pain This issue was reviewed, appears stable, and current therapy continued except as mentioned. Appropriate lab was reviewed from the most recent appropriate entry and lab was ordered if needed in the cpoe/nursing orders, and follow up recommended generally in 90 days and no later then six months. We discussed several options for treatment for this condition. The patient declined any changes or other treatments at this time. Meds offered and declined. IMPRESSION: There are mild degenerative changes present. No acute abnormality is seen. [2] Renal mass Dedicated CT scan per radiology recommendation. UAwas totally clear in January. Ordered: CBC Hemogram Urinalysis with Culture if Indicated Tobacco use disorder Smoking Cessation was discussed. The patient is welcome to f/u for therapy or medication for smoking cessation at any time that they are willing to quit.
--- OUTSIDE RECORDS SUMMARY | 2017-01-23 12:15 | XMS REPORT | Referral Summary ---
Author Author [facility] Organization [facility] Address Unknown Phone Unavailable Care Team Providers Care Tier And Detonator Name Role Phone Maya House Primary Care Physician [phone] Encounter Date(s): 08/29/16 - 08/29/16 [facility] [address] [place] [id number] Discharge Diagnosis: Left renal mass Discharge Disposition: 01-Home or Self Care Attending Physician: Micky Engel MD Admitting Physician: Micky Engel MD Vital Signs Most recent to 1 oldest [Reference Range]: Blood Pressure 120/80 mmHg [90-140/60-90 mmHg] (08/29/16 3:41 PM) Problem List Condition Effective Dates Status [...] Daily, # 135 tabs, 1 Refill(s), Pharmacy: [facility] # [id number], 1 1/2 tabs Oral Daily Start Date: 08/14/16 Status: Ordered lisinopril-hydrochlorothiazide 20 mg-12.5 mg oral tablet 1 tabs, Oral, Daily, # 90 tabs, 1 Refill(s), Pharmacy: [facility] #[id number] Start Date: 08/14/16 Stop Date: 02/10/17 Status: Ordered Miscellaneous DME DME Item CT Guided Needle Biopsy Left Kidney DX: Left Kidney Mass (N28.89) Initiate all standing orders for CT Guided Needle Biopsy, See Instructions, # 1 Each, 0 Refill(s), Supply Start Date: 08/28/16 Status: Ordered Symbicort 160 mcg-4.5 mcg/inh inhalation aerosol See Instructions, INHALE TWO PUFFS BY MOUTH TWICE A DAY, # 3 Each, 1 Refill(s), Pharmacy: [facility] #[id number] Start Date: 08/14/16 Status: Ordered traMADol 50 mg oral tablet 50 mg 1 tabs, Oral, q12hr, as needed for pain, Parker Ortiz, # 60 tabs, 0 Refill(s ) Start Date: 08/14/16 Status: Ordered Ventolin HFA 90 mcg/inh inhalation aerosol 2 puffs, Inhalation, QID, as needed for wheezing, # 1 Each, 2 Refill(s), Pharmacy: [facility] #[id number], 2 puffs Inhalation QID,PRN:as needed for wheezing Start Date: 02/14/16 Status: Ordered Results Chemistry Most recent to 1 oldest [Reference Range]: Sodium Lvl [135-144 128 mEq/L mEq/L] *LOW* (08/29/16 4:31 PM) Potassium Lvl 3.8 mEq/L [3.5-5.2 mEq/L] (08/29/16 4:31 PM) Chloride [99-111 91 mEq/L mEq/L] *LOW* (08/29/16 4:31 PM) CO2 [23-31 mEq/L] 25 mEq/L (08/29/16 4:31 PM) AGAP [3-20] 12 (08/29/16 4:31 PM) BUN [8-26 mg/dL] 14 mg/dL (08/29/16 4:31 PM) Glucose Lvl [70-99 80 mg/dL mg/dL] (08/29/16 4:31 PM) Creatinine Lvl 0.89 mg/dL [0.72-1.25 mg/dL] (08/29/16 4:31 PM) eGFR [>60 mL/min] >60 mL/min 1 (08/29/16 4:31 PM) Calcium Lvl 9.3 mg/dL [8.9-10.5 mg/dL] (08/29/16 4:31 PM) Albumin Lvl [3.4-4.8 4.3 gm/dL gm/dL] (08/29/16 4:31 PM) Total Protein 6.4 gm/dL [6.0-7.6 gm/dL] (08/29/16 4:31 PM) Globulin [1.8-4.0 2.1 gm/dL gm/dL] (08/29/16 4:31 PM) ALT [0-55 U/L] 11 U/L (08/29/16 4:31 PM) AST [5-34 U/L] 17 U/L (08/29/16 4:31 PM) Alk Phos [40-150 78 U/L U/L] (08/29/16 4:31 PM) Bili Total [0.2-1.2 0.5 mg/dL mg/dL] (08/29/16 4:31 PM) 1Result Comment: Multiply eGFR results by 1.21 for race. Immunizations Vaccine Date Refusal Reason influenza virus [...]
--- OUTSIDE RECORDS SUMMARY | 2017-01-23 12:15 | XMS REPORT | Referral Summary ---
Author Author [facility] Organization [facility] Address Unknown Phone Unavailable Care Team Providers Care Compressed Yeast Supervisor Name Role Phone Maya House Primary Care Physician [phone] Encounter Date(s): 08/27/16 - 08/27/16 [facility] [address] [place] [id number] Discharge Diagnosis: Left renal mass Discharge Diagnosis: Chronic obstructive pulmonary disease (COPD) Discharge Diagnosis: Mass of upper lobe of left lung Discharge Diagnosis: Nicotine dependence, cigarettes, with unspecified nicotine- induced disorders Discharge Disposition: 01-Home or Self Care Attending Physician: Bhavesh Tipton MD Admitting Physician: Bhavesh Tipton MD Referring Physician: Tru House MD Vital Signs Most recent to 1 oldest [Reference Range]: Peripheral Pulse 64 bpm Rate [60-100 bpm] (08/27/16 2:31 PM) Respiratory Rate 18 br/min [14-20 br/min] (08/27/16 2:31 PM) Blood Pressure 140/90 mmHg [90-140/60-90 mmHg] (08/27/16 2:31 PM) SpO2 97 % (08/27/16 2:31 PM) Problem List Condition Effective Dates Status [...] Daily, # 135 tabs, 1 Refill(s), Pharmacy: [facility] # [id number], 1 1/2 tabs Oral Daily Start Date: 08/14/16 Status: Ordered lisinopril-hydrochlorothiazide 20 mg-12.5 mg oral tablet 1 tabs, Oral, Daily, # 90 tabs, 1 Refill(s), Pharmacy: [facility] #[id number] Start Date: 08/14/16 Stop Date: 02/10/17 Status: Ordered Symbicort 160 mcg-4.5 mcg/inh inhalation aerosol See Instructions, INHALE TWO PUFFS BY MOUTH TWICE A DAY, # 3 Each, 1 Refill(s), Pharmacy: [facility] #[id number] Start Date: 08/14/16 Status: Ordered traMADol 50 mg oral tablet 50 mg 1 tabs, Oral, q12hr, as needed for pain, SLong Ortiz, # 60 tabs, 0 Refill(s ) Start Date: 08/14/16 Status: Ordered Ventolin HFA 90 mcg/inh inhalation aerosol 2 puffs, Inhalation, QID, as needed for wheezing, # 1 Each, 2 Refill(s), Pharmacy: [facility] #[id number], 2 puffs Inhalation QID,PRN:as needed for wheezing [...] Cigarettes Assessment and Plan Extracted from: Title: Consult Note Author: Bhavesh Tipton MD Date: 08/27/16 Assessment/Plan Lung mass and nodules Left kidney mass COPD Nicotine dependence, cigarettes Patient findings concerningforprimary renal tumor with metastasis to the lungs. Other possibility would roly primary lung cancer withmetastasis to the kidneys or2 separateprimary malignancies. The best approach would be to start by biopsyingthe most accessible lesionwhich would be thekidney massassumingthis is one process. Patient will be scheduled with interventional radiology for CT-guided biopsy of the left kidney mass. Based on results we will decideonthe need for further biopsying of the lung mass. Patient alsoplannedfor follow-up with urology. Patienthas COPD and has been on inhalers for the past 2 years. PFTtoday showed moderate obstruction, hyperinflation andnoted reduction in the diffusion capacity. ContinueSymbicort and albuterol for now. Symptoms seem to be controlled on currentregimen. We willdiscuss smoking cessation on his next visit.
[2017-01-23 12:53] VITALS: BP 127/90; PULSE 60; RESP 16; TEMP 98; O2SAT 97
[2017-01-23 13:10] VITALS: Ht 180.3 cm; Wt 75.0 kg
[2017-01-23 13:28] LABS: BASOPHILS % (AUTO) 0.3 % (0-2); EOSINOPHILS % (AUTO) 0.6 % (0-4); HCT - HEMATOCRIT 25.1 % (41-53); HGB - HEMOGLOBIN 8.5 GM/DL (13.5-17.5); IMMATURE GRANULOCYTE # (AUTO) 0.01 T/MM3 (0.00-0.03); IMMATURE GRANULOCYTE % (AUTO) 0.3 % (0.0-0.5); LYMPHOCYTES # (AUTO) 1.5 T/MM3 (1-4.8); LYMPHOCYTES % (AUTO) 41.9 % (23-45); MEAN CORPUSCULAR HGB 32.4 UUG (26-34); MEAN CORPUSCULAR HGB CONC(MCHC 33.9 GM/DL (31-37); MEAN CORPUSCULAR VOLUME 95.8 UM3 (80-100); MEAN PLATELET VOLUME 8.2 UM3 (9.4-12.4); MONOCYTES # (AUTO) 0.5 T/MM3 (0-0.8); MONOCYTES % (AUTO) 14.8 % (0-9.0); NEUTROPHILS #(AUTO)-ABSOLUTE 1.5 T/MM3 (1.8-7.7); NEUTROPHILS % (AUTO) 42.1 % (33-66); RED BLOOD COUNT 2.62 M/MM3 (4.50-5.90); WBC - WHITE BLOOD COUNT 3.5 T/MM3 (4.5-11.0)
--- NOTE | 2017-01-23 14:30 | ANESPREOP ---
Anesthesia Record Date and Time DATE: 01/23/17 TIME: 14:27 Pre-Op Diagnosis Lung Cancer Proposed Surgical Procedure POWER PORT INSERTION NPO since: MN Allergies: Coded Allergies: No Known Allergies (Unverified , 01/23/17) Ht/Wt/BMI Height: 5 ' 11.00 " Weight: 75.000 kg BMI: 23.1 kg/m2 Vital Signs Date Time Temp Pulse Resp B/P Pulse Ox O2 Delivery O2 Flow Rate FiO2 01/23/17 12:53 98.0 60 16 127/90 97 Room Air Medications Inpatient Medications Current Medications Medications (Trade) Dose Ordered Sig/Hanny Start Time Stop Time Status Last Admin Dose Admin Sodium Chloride (Normal Saline IV) 1,000 ml @ 50 mls/hr Q20H PRN 01/23/17 07:00 01/23/17 13:35 50 MLS/HR Albuterol Sulfate (Ventolin HFA 90 mcg/actuation) 18 Gm Hfa.aer.ad, 2 PUFF ORAL INH QID PRN for SHORTNESS OF AIR/WHEEZING, (Reported) Last Taken: on 01/20/17 Budesonide/Formoterol Fumarate (Symbicort 160-4.5 Mcg Inhaler) 10.2 Gm Hfa.aer.ad, 2 PUFF INH BID, (Reported) Last Taken: on 01/23/17 07 Lisinopril/Hydrochlorothiazide (Lisinopril-Hctz 20-12.5 mg Tab) 1 Each Tablet, 1 TAB PO DAILY, (Reported) Last Taken: on 01/23/17699 Nebivolol HCl (Bystolic) 5 Mg Tablet, 1.5 TAB PO DAILY, (Reported) Last Taken: on 01/23/17699 Currently on Beta Jessy: Yes Beta Jessy Last Taken: 01-23-17699 Medical/Surgical History Anesthesia PMH: Reports: *Hypertension (TAKES MEDS), COPD, Cancer (KIDNEY AND LUNG), Renal Disease (KIDNEY CANCER), Denies: Anesthesia Reactions (NO AIRWAY ISSUES), Clotting Problems, Glaucoma, Malignant Hyperthermia, Sleep Apnea Smoking Status: Former smoker (quit one month ago) # of Packs per Day: 1 # of Years: 50 Use Chewing Tobacco?: No Second Hand Exposure: No Substance Use Type: does not use Alcohol Intake: none Past Surgical History Orthopedic Surgeries: Abdominal Surgeries: Yes - APPY, HERNIA Genitourinary Surgeries: Cardiac Surgeries: Endocrine Surgeries: Reproductive Surgeries: Neurological Surgeries: Ear Surgeries: Nose Surgeries: Throat Surgeries: Other Surgeries: Anesthesia Adverse Reactions: FOUND none Family Hx of Anesthesia Advers: none Hx of Motion Sickness: No Pertinent Findings Laboratory Tests 01/23/17 13:11 EKG Rhythm: Sinus Rhythm Physical Exam Respiratory: Bilat breath sounds equal, Lungs clear Cardiovascular: FOUND Regular rate, rhythm, FOUND No murmur Airway Assessment Mallampati Score: II TMD: 3 Fingerbreadths Neck Extension: Good Overall Assessment: No Airway Concerns ASA: 3 Plan Anesthesia Plan: TIVA Discussion Discussed risks/options/alternatives of anesthesia and questions answered. Patient consents. Nursing pain assessment noted. Attestation Statement Prior to the delivery of any anesthetic medication, I examined the patient, developed the plan, obtained the patient's consent and discussed the risk and benefits of the procedure with the patient/guardian. SHAQUILLE PAULINO CRNA Jan 23, 2017 14:30
[2017-01-23] MEDS ORDERED: IBUP-1724 PO (14:55)
[2017-01-23] MEDS ORDERED: OXYC1TAB8 PO (14:55)
[2017-01-23] MEDS ORDERED: BUPIVACAINE 0.25%/EPI 1:200,000 30ml SDV ONE (14:59)
[2017-01-23] MEDS ORDERED: PROPOFOL 500mg 50 ML IV ONE (15:06)
[2017-01-23] MEDS ORDERED: FENTANYL 100mcg/2ml INJECTION ONE (15:11)
[2017-01-23 15:49] VITALS: BP 133/90; PULSE 59; RESP 16; TEMP 97.1; O2SAT 99
--- NOTE | 2017-01-23 15:53 | ANESPO ---
Post-Op Note Date 01/23/17 Time: 15:53 Status Pt Participated in Evaluation: Pt participated in person Vital Signs Date Time Temp Pulse Resp B/P Pulse Ox O2 Delivery O2 Flow Rate FiO2 01/23/17 12:53 98.0 60 16 127/90 97 Room Air Respiratory Function: Airway patent Cardiovascular Function: Regular pulse Telemetry Pattern: SR Mental Status: Alert/oriented Pain Level Intensity: 0 Hydration: IV infusing Complications during Recovery None apparent Follow-Up Instructions Instructions Per Surgeon SHAQUILLE PAULINO CRNA Jan 23, 2017 15:53
[2017-01-23 16:04] VITALS: BP 122/81; PULSE 58; RESP 16; O2SAT 98
[2017-01-23 16:19] VITALS: BP 157/99; PULSE 58; RESP 17; TEMP 97.8; O2SAT 95
--- NOTE | 2017-01-23 16:37 | DI ---
Indication: ITS.REASON: POWERPORT INSERTION PROCEDURE: PORTACATH W FLUORO W 1V CXR: Encounter: Initial Comparison: PET/CT dated January 02, 2017. Findings: Right internal jugular central venous port catheter in place with the tip projecting over the mid SVC. No visible pneumothorax. Patient is slightly rotated. There is a tortuous thoracic aorta. Known left upper lobe mass is not well seen on this view. Heart size and pulmonary vascularity are normal. Impression: New right IJ port catheter appears appropriately positioned. .
--- NOTE | 2017-01-24 09:30 | OPNOTEF ---
DATE OF SERVICE 01/23/2017 SURGEON Luis Reyes MD PREOPERATIVE DIAGNOSIS Need for long-term central venous access to facilitate chemotherapy. Personal history for metastatic lung cancer, probable renal cell carcinoma. POSTOPERATIVE DIAGNOSIS Need for long-term central venous access to facilitate chemotherapy. Personal history for metastatic lung cancer, probable renal cell carcinoma. PROCEDURE Insertion of PowerPort catheter under sonographic and fluoroscopic guidance. ANESTHESIA TIVA/local. BRIEF HISTORY/INDICATIONS Mr. Lopez is a 66-year-old male, who has had the misfortune of developing metastatic lung cancer. Patient also has a large mass noted within his kidney as well as upon radiograph evaluation felt to likely represent renal cell carcinoma. He has been undergoing chemotherapy through peripheral IV sites. Nursing staff is having increasingly more difficulty in obtaining peripheral IV access. It was, therefore, recommended to the patient that he undergo placement of a PowerPort catheter to facilitate his ongoing chemotherapy. For completeness please refer to notes included in the patient's chart. DESCRIPTION OF PROCEDURE After informed consent was obtained, the patient was brought to the operative suite, placed on the table in supine fashion. The right lateral neck and anterior chest were then prepped and draped in a sterile fashion. First, the patient was placed in Trendelenburg position and ultrasonography was performed along the right lateral neck. One could see a round hypoechoic structure which collapsed with pressure applied via the ultrasound transducer. This corresponded with the internal jugular vein. Then, 0.25% Marcaine with epinephrine was injected overlying the anatomic location of the internal jugular vein. A Cook needle was then introduced through the area of analgesia and into the underlying internal jugular vein under sonographic guidance. A guidewire was advanced through the Cook needle, and the Cook needle was then removed. Fluoroscopy was then performed, which revealed the guidewire to be within the atrium and right ventricle. A 5- to 6-mm incision was then made adjacent to the exit site of the guidewire and extended out laterally. Additional 0.25% Marcaine with epinephrine was injected about two fingerbreadths below the right clavicle. A 3-cm incision was then made through the area of analgesia. A subcutaneous pocket was then created just inferior or caudad to this incision. A PowerPort reservoir was then brought forth into the operative field and placed within the subcutaneous pocket and subsequently imbricated to the underlying pectoralis fascia in a triangulated fashion by placing three simple interrupted sutures of 0-Prolene through the underlying pectoralis fascia and subsequently through the holes within the reservoir itself. The catheter was then tunneled between the two incisions. A dilator and tear-away sheath were then advanced over the guidewire. The guidewire and dilator were then removed. The catheter was then quickly advanced in the tear-away sheath and the tear-away sheath was then removed. Under fluoroscopy, the tip of the catheter was then placed near the junction between the superior vena cava and right atrium and cut to the appropriate length and subsequently attached to the PowerPort reservoir. The PowerPort reservoir was then accessed and was easily aspirated and flushed with heparinized saline. Both skin incisions were then closed in a subcuticular fashion with 4-0 Monocryl. The patient tolerated the procedure without difficulty. A postprocedure chest x-ray will be obtained postoperatively. The results of this film are pending at the time of dictation. [employer] [facility]ER[facility]
== END 2017-01-23 16:29 | disposition home or self-care (01) ==
LOC: SCU 12:10
PROVIDERS: ATTEND Surgery
DX: C34.12 Malignant neoplasm of upper lobe, left bronchus or lung (principal); I10 Essential (primary) hypertension; J44.9 Chronic obstructive pulmonary disease, unspecified; F17.290 Nicotine dependence, other tobacco product, uncomplicated; F10.21 Alcohol dependence, in remission; Z79.899 Other long term (current) drug therapy
CPT/HCPCS: 36415; 36561; 77001; 85025; C1788; J0690; J1642; J3010; J7030

== ENCOUNTER → 2017-03-13 | Outpatient (CLI) | payer MEDICARE, BC ==
[~2017-03-13] MED LIST changes: -CEFAZOLIN 1 GRAM INJECTION IV ONE; +IBUP-1724 PO; -LIDOCAINE 1% (10mg/ml) 2ml SDV INJ ONE; -NORMAL SALINE 1,000 ML IV PRN; +OXYC1TAB8 PO; -TRAM50TA4 PO
--- NOTE | 2017-03-13 11:19 | DI ---
Indication: ITS.REASON: NON SMALL CELL LUNG PROCEDURE: PET/CT SKULL TO THIGH SUBSEQUE: Encounter: Subsequent Comparison: PET/CT dated January 02, 2017 Technique: 17.8 mCi of F-18 FDG was administered intravenously via the right antecubital fossa. Approximately 60 minutes later 3D PET/CT imaging was performed from the skull base through the mid thighs. The CT images are for attenuation correction purposes only. Findings: No areas of abnormal metabolic uptake seen within the skull base or neck. Physiologic regions of uptake noted. The left apical chest wall and base of the lung mass is decreased in size and metabolic activity. This area now has an SUV max of only 2.4 compared to 3.7 previously. The mass also measures smaller at less than 2 cm in diameter. Paraseptal emphysema noted in the lungs. No new metabolically active pulmonary nodules or masses. Expected myocardial uptake. Uptake in the lower thoracic esophagus could be physiologic or due to mild esophagitis. No metabolically active axillary or mediastinal adenopathy. The patient's large heterogeneous left renal mass is again seen with continued decrease in tracer uptake and evidence of central tumor necrosis. There is otherwise expected physiologic genitourinary and bowel uptake. The renal mass is smaller than the comparison study, now measuring 6.7 x 4.4 cm at location -[id number], decreased from 7.3 x 4.4 cm previously. No hypermetabolic masses seen within the liver. Focal gastric uptake could be physiologic or represent a mild gastritis. No areas of worrisome skeletal uptake. No metabolic adenopathy seen in the abdomen or pelvis. Impression: Continued evidence of response to therapy with decreasing size and metabolic activity of the left upper lobe and left renal masses. No new metastatic disease seen. .
== END ==
LOC: IMA 07:21
PROVIDERS: ATTEND Internal Medicine Hematology & Oncology
DX: C34.12 Malignant neoplasm of upper lobe, left bronchus or lung (principal)
CPT/HCPCS: 78815; A9552

== ENCOUNTER 2017-04-24 21:09 | Inpatient (IN) ==
[2017-04-24] MEDS ORDERED: NS 1,000 ML IV ONE (21:33)
--- NOTE | 2017-04-24 21:38 | Emergency Department Report ---
Fall HPI - General Chief Complaint: Fall Stated Complaint: Fall Time Seen by Provider: 04/24/17 21:22 Source: family Mode of arrival: EMS Limitations: altered mental status - History of Present Illness HPI Narrative: Baltazar is a 67-year-old white male who was found down by approximately 8:30 PM. Patient was lying beside his bed on the floor with blood coming from his mouth and experiencing confusion. Patient was incontinent of urine. was at work all day and is unable to verify time patient had been on the floor. Family member indicates thinking they had heard patient moving around about 4 hours prior to being found. Patient is not able to verbalize any history. Normally patient is alert/oriented and completely independent and continent. He works outside in his shop most days. Patient is able to identify left hip as being painful. He comes to [facility] emergency room by EMS in a c-collar. Patient does have a history of stage IV lung cancer diagnosed in the fall of 2015 with initiation of chemotherapy around 2015. He has been off chemotherapy for 3 weeks with anticipation of surgery for left nephrectomy. According to the lung cancer masses have been effectively treated by the chemotherapy but now there is masses on the left kidney, thus he will undergo surgical removal. Oncologist is Dr. Ospina. PCP is Lacy. Patient reportedly had a brain scan 2 months ago and it was negative for mets. Patient does not have a prior hx of CVA or seizures. He does not take any blood thinners. Onset (ago): unknown Fall from: other (unknown) Fall witnessed: no Place fall occurred: home Loss of consciousness: unsure Prolonged down time: unclear Location of injury: mouth Location of injury - extremities: Left: lower leg Associated symptoms (after fall): unable to walk, confusion - Related Data Home Medications Medication Instructions Recorded Confirmed Albuterol Sulfate [Ventolin Hfa] 2 puff ORAL INH QID PRN #0 inhaler 01/22/1705/04 Budesonide/Formoterol Fumarate 2 puff INH BID #31 01/22/17 04/24/17 [Symbicort 160-4.5 Mcg Inhaler] Lisinopril/Hydrochlorothiazide 1 tab PO DAILY #30 01/22/17 04/24/17 [Lisinopril-Hctz 20-12.5 mg Tab] Nebivolol [Bystolic] 1.5 tab PO DAILY 04/24/17 04/24/17 Previous Rx's Medication Instructions Recorded Ibuprofen 600 mg PO Q6H PRN 10 Days 01/23/17 Allergies Allergy/AdvReac Type Severity Reaction Status Date / Time No Known Allergies Allergy Unverified 02/21/17 09:48 Review of Systems Limitations: ROS unobtainable due to patient's medical condition Neurological: Reports: confusion Hematological/Lymphatic: Reports: easy bruising PFSH Patient Stated Medical History Hypertension Yes Hx Renal Disease Yes - Social History Smoking status: Former smoker Substance use type: does not use Alcohol intake frequency: holidays/special occasions only Housing: house Household members: spouse Current occupational status: retired Current residence: Apartment/Private Home Physical Exam - General General appearance: alert, other (does not give much verbal response) - Head Head exam: atraumatic, normocephalic - Eye Eye exam: Present: normal appearance, PERRL. Absent: conjunctival injection, periorbital swelling - ENT ENT exam: Present: mucous membranes dry - Expanded ENT Exam Mouth exam: Present: laceration (tongue abrasions - dried blood in mouth) - Chest Chest inspection: Present: normal inspection (rt port noted) - Respiratory Respiratory exam: Present: normal lung sounds bilaterally - Cardiovascular Cardiovascular exam: Present: regular rate, normal rhythm - Abdominal Exam Abdominal exam: Present: soft. Absent: distention, tenderness - Expanded Upper Extremity Exam Forearm/Wrist exam: Present: ecchymosis (scattered) - Skin Skin exam: Present: warm, dry - Neurological Exam Neurological exam: Present: alert - Expanded Neurological Exam Motor strength - LUE: 4/5 Motor strength - RUE: 4/5 Coma scale eye opening: spontaneous Coma scale motor response: obeys commands Coma scale verbal response: confused Coma scale total: 14 - Expanded Psychiatric Exam Expanded psych exam: Present: other (confused) Course Course Narrative: 0640 - Spoke at length with family regarding labs, imaging and plan at this point. 0007- Patient more alert but remains confused. Paged out telehospitalist. - Consultations Consultation #1: Bernardo Time: 00:10 (admit ICU) Vital Signs Temperature 97.7 F 04/24/17 21:09 Pulse Rate 70 04/24/17 21:09 Respiratory Rate 16 04/24/17 21:09 Blood Pressure 198/115 H 04/24/17 21:09 Pulse Oximetry 96 04/24/17 21:09 Temperature 97.7 F 04/24/17 21:09 Pulse Rate 67 04/24/17 23:15 Respiratory Rate 18 04/24/17 23:15 Blood Pressure 195/106 H 04/24/17 23:15 Pulse Oximetry 98 04/24/17 23:15 Fall - Medical Records Attestation: I reviewed the patient's medical records. - Lab Data Attestation: I reviewed the patient's lab results. Result diagrams: 04/24/17 21:49 04/24/17 21:50 Lab Results 04/24/17 04/24/17 04/24/17 Range/Units 21:49 21:50 23:10 WBC 8.7 (4.5-11.0) T/MM3 RBC 3.90 L (4.50-5.90) M/MM3 Hgb 11.9 L (13.5-17.5) GM/DL Hct 36.1 L (41-53) % MCV 92.6 (80-100) UM3 MCH 30.5 (26-34) UUG MCHC 33.0 (31-37) GM/DL RDW Std Deviation 55.6 H (36.9-50.2) FL Plt Count 164 (130-400) T/MM3 MPV 8.9 L (9.4-12.4) UM3 Immature Gran % (Auto) 0.1 (0.0-0.5) % Neut % (Auto) 75.6 H (33-66) % Lymph % (Auto) 14.2 L (23-45) % [place] % (Auto) 10.0 H (0-9.0) % Eos % (Auto) 0.0 (0-4) % Baso % (Auto) 0.1 (0-2) % Neut # 6.6 (1.8-7.7) T/MM3 Lymph # 1.2 (1-4.8) T/MM3 [place] # 0.9 H (0-0.8) T/MM3 Eos # 0.0 (0-0.5) T/MM3 Baso # 0.0 (0-0.2) T/MM3 Abs Immat Gran (auto) 0.01 (0.00-0.03) T/MM3 Turbidity < 20 (0-20) Sodium 139 (134-144) MEQ/L Potassium 3.8 (3.6-5) MEQ/L Chloride 102 (98-107) MEQ/L Carbon Dioxide 23 (22-30) MEQ/L Anion Gap 14 (5-15) MEQ/L BUN 35.0 H (9-20) MG/DL Creatinine 1.1 (0.8-1.5) MG/DL GFR Calculation 67 BUN/Creatinine Ratio 32 H (6-26) RATIO Glucose 95 (75-110) MG/DL Calculated Osmolality 276 (261-280) MOSM/KG Calcium 9.9 (8.4-10.2) MG/DL Total Bilirubin 0.60 (0.20-1.30) MG/DL Icterus Index < 2 (0-7) AST 416 H (17-59) U/L ALT 93 H (21-72) U/L Alkaline Phosphatase 81 (38-126) U/L Creatine Kinase 82476 H (55-170) U/L Troponin I 0.067 (0-0.12) ng/ml Total Protein 7.4 (6.3-8.2) G/DL Albumin 4.6 (3.5-5.0) G/DL Globulin 2.8 (2.4-3.6) G/DL Albumin/Globulin Ratio 1.6 (1.1-2.2) RATIO Plasma Lactate 1.1 (0.6-2.2) MMOL/L Specimen Hemolysis < 15 (0-25) Ur Collection Type Urine, catheter Urine Color Yellow (YELLOW) Urine Clarity Clear Urine pH 5.5 (5.0-8.0) Ur Specific [place] 1.025 (1.015-1.025) Urine Protein 1+ A (NEGATIVE) Urine Glucose (UA) Negative (NEGATIVE) Urine Ketones 1+ A (NEGATIVE) Urine Occult Blood 3+ A (NEGATIVE) Urine Nitrate Negative (NEGATIVE) Urine Bilirubin Negative (NEGATIVE) Urine Urobilinogen 0.2 (NORMAL) EU/DL Ur Leukocyte Esterase Negative (NEGATIVE) Urine RBC 5-10 H (0-3) /HPF Urine WBC None seen (0-5) /HPF Urine Bacteria None seen (NEGATIVE) Ur Culture Indicated? Cult not indicated - Radiology Data Attestation: I reviewed the patient's radiology results. Ct head negative acute findings. encephalomalacia CT cspine negative- Disposition Clinical Impression: Rhabdomyolysis Disposition: 02 To [facility] [place] Acute Care Condition: Stable Prescriptions: No Action Budesonide/Formoterol Fumarate [Symbicort 160-4.5 Mcg Inhaler] 2 puff INH BID #31 Lisinopril/Hydrochlorothiazide [Lisinopril-Hctz 20-12.5 mg Tab] 1 tab PO DAILY #30 Albuterol Sulfate [Ventolin Hfa] 2 puff ORAL INH QID PRN #0 inhaler PRN Reason: SHORTNESS OF AIR/WHEEZING Ibuprofen 600 mg PO Q6H PRN 10 Days PRN Reason: PAIN Nebivolol [Bystolic] 1.5 tab PO DAILY Referrals: Tru House MD [Family Provider] - - Seen By: lena
[2017-04-24] MEDS: SALINE FLUSH 10ml SYRINGE IVF PRN (22:36)
[2017-04-25] MEDS ORDERED: NS 1,000 ML IV ONE ×2 (00:08→02:00)
[2017-04-25] MEDS ORDERED: HYDRALAZINE 20 MG/ML INJECTION IVP ONE ×2 (00:16→00:58)
[2017-04-25] MEDS ORDERED: HYDROMORPHONE 2 MG/ML INJECTION IVP PRN (01:20)
[2017-04-25] MEDS ORDERED: ONDANSETRON 4 MG/2 ML INJECTION IVP PRN (01:20)
[2017-04-25] MEDS ORDERED: PANTOPRAZOLE 40 MG INJECTION IVP ONE (01:20)
--- NOTE | 2017-04-25 01:56 | History & Physical Report ---
History of Present Illness Date: 04/25/17 Chief complaint: altered mental status HPI: This is a 67 y/o male who was diagnosed with adenocarcinoma of the lung late last year and has undergone chemo for tumor. The patient most recently was discovered to have metastatic disease tohis right kidney and has stopped his chemo for the past 3 weeks in preparation for a nephrectomy. The patient has had generally incrased weakness recently but tonight the found the patient on the floor altered. The down time is unkown but could be as long as 18 hours. The patient had blood coming from his mouth and thre was clear oral injury. In the ED the pateint is hypertensive and neuro workup was unremakrable with a CT of the head and c spine no acute disease process. A CXR was unremarkable to acute change. The patient responded to 2 L NS in the ED and is now more alert. Metabolic workup demonstrates mild dehydration but otherwise preserved renal function. At this time the patient is to be admitted into the ICU for further evaluation. Review of Systems Review of systems: patient is unable to provide due to his confusion. [facility] Medical History Updates: adenocarcinoma of lung dx approximately 06/03, currently being treated with chemo (held the last 3 weeks). metastatic disease to his right kidney. HTN. COPD. macular degeneration Surgical History: herniorraphy, appendectomy - Social History Smoking status: Current every day smoker Substance use type: does not use Alcohol intake: current Alcohol intake frequency: holidays/special occasions only Last drink: unknown Housing: house Household members: spouse service: No Current occupational status: previously employed Current residence: Apartment/Private Home Medications Home Medications Medication Instructions Recorded Confirmed Type Albuterol Sulfate [Ventolin Hfa] 2 puff ORAL INH QID PRN #0 inhaler 01/22/1705/04 History Budesonide/Formoterol Fumarate 2 puff INH BID #31 01/22/17 04/24/17 History [Symbicort 160-4.5 Mcg Inhaler] Lisinopril/Hydrochlorothiazide 1 tab PO DAILY #30 01/22/17 04/24/17 History [Lisinopril-Hctz 20-12.5 mg Tab] Nebivolol [Bystolic] 1.5 tab PO DAILY 04/24/17 04/24/17 History Allergies Allergy/AdvReac Type Severity Reaction Status Date / Time No Known Allergies Allergy Unverified 02/21/17 09:48 Exam Vital Signs: Temperature 98.1 F 04/25/17 01:10 Pulse Rate 80 04/25/17 01:10 Respiratory Rate 21 04/25/17 01:10 Blood Pressure 179/99 H 04/25/17 01:10 Pulse Oximetry 99 04/25/17 01:10 Oxygen Delivery Method Room Air Telemetry Rhythm: Sinus Rhythm Height: 1.83 m Weight: 72 kg - Constitutional Present: mild distress, thin, cachectic, cooperative, somnolent - Routine HEENT Exam Head: Present: normocephalic, atraumatic. Absent: facial swelling Eye: Present: EOMI, PERRL, conjunctivae pink. Absent: conjunctival icterus, scleral injection Comments: patient with signficant bruising to tongue - Routine Neck Exam Present: supple, full ROM - Routine Respiratory Exam Comments: diminished breath sounds with occasional wheeze - Routine Cardiovascular Exam Present: RRR - Routine Abdominal Exam Present: soft, normoactive bowel sounds, non distended, non tender - Routine Extremities Exam Present: no edema, non tender, full ROM - Routine Back/Spine/Pelvis Exam Back/Spine: Present: full ROM - Routine Neurological Exam Present: CN II-XII intact, altered mental status, moving all extremities, normal tone, vision grossly intact, hearing grossly intact, normal speech. Absent: alert, oriented X3, motor deficit, facial asymmetry - Routine Psychiatric Exam Comments: flat affect Results - Labs CBC & Chem 7: 04/24/17 21:49 04/24/17 21:50 Labs: labs demonstrate mild anemia normocytic, preserved chemistry, with mild pre renal azotemia, troponin .06, elevated transaminases and normal LA, UA clean - ECG Data Tracing #1 sinus without ischemic changes. normal axis. appropriate r wave progression - Imaging and Cardiology Chest x-ray Additional comments: no acute process CT scan - head Additional comments: no acute intracranial process CT C spine Additional comments: no acute injury Assessment and Plan (1) Metabolic encephalopathy Current visit: Yes Status: Acute 04/25/17 02:09 This pateint presents with altered mental status that has slowly improved with fluids. CT head no acute process. metabolic panel is reasuring (have ordered TSH for am). DDX: post ictal, metastatic tumor to brain no visualized by CT, CVA, PRES from elevated blood pressure. Discussed in detail with family and they want patient to stay locally. Tonight admit to ICU, neuro checks, seizure precautions. repeat labs in the am. MR in am. for now keep blood pressure around 200/100 (in case CVA). If patient seizes will load with keppra. Will not automatically commit to anti seizure regimen without further evidence of seizure activity (2) Rhabdomyolysis Current visit: Yes Status: Acute 04/25/17 02:16 most likely multifactorial. if laid on ground for a period of time and seizure. CK is remarkable elevated. will start HCO3 gtt and monitor urine output and renal functin with repeat labs in the am. Will cycle CK to demonstrate improvement (3) Adenocarcinoma of lung, stage 4 Current visit: Yes Status: Acute 04/25/17 02:17 refer to oncology note. (not access to tonight). chemo held acutely for planned nephrectomy soon. stage IV with met ds across diaphragm. (4) Dehydration Current visit: Yes Status: Acute 04/25/17 02:18 patient wihtout sig intake for multiple hours. hydrate and monitro renal function (5) COPD (chronic obstructive pulmonary disease) Current visit: Yes Status: Acute 04/25/17 02:18 will cover with duoneb overnight. consider albuterol prn. currently not exacerbation. lungs are mostly diminished with rare wheeze. (6) Tobacco abuse Current visit: Yes Status: Acute 04/25/17 02:18 to be aware of. prognosis is poor and not interested in forcing this issue at this time. (7) Hypertension Current visit: Yes Status: Acute 04/25/17 02:19 as noted above, will shoot for 200/100. continue b singh and add hydralazine iv prn. due to risk to kidneys with rhabdo, will hold DICK inhibitor acutely, adjust meds as indicated. DVT Prophylaxis: SCD's GI Prophylaxis: Protonix Resuscitation Status: Full Code - Time spent with patient 25 - 35 minutes Hospital Course Summary Disclaimer: The visit summary below is not to be considered part of the above Progress Note.
[2017-04-25] MEDS: LIDOCAINE VISCOUS 2% ORAL LIQUID 15ml PO PRN (02:22)
[2017-04-25] MEDS: D5W IV SCH ×2 (03:17→15:43)
[2017-04-25] MEDS: SODIUM ACETATE IV SCH ×2 (03:17→15:43)
[2017-04-25] MEDS ORDERED: HYDRALAZINE 20 MG/ML INJECTION IVP PRN (03:39)
[2017-04-25] MEDS: SALINE FLUSH 10ml SYRINGE IVF PRN (05:17)
[2017-04-25] MEDS: ALBUTEROL/IPRATROPIUM 2.5mg-0.5mg/3ml NEB IH SCH ×4 (07:19→19:45)
[2017-04-25] MEDS ORDERED: SALINE FLUSH 10ml SYRINGE ONE ×2 (08:58→10:25)
[2017-04-25] MEDS ORDERED: GADOBUTROL 10mMol/10ml INJECTION IVP ONE (08:58)
--- NOTE | 2017-04-25 10:48 | Magnetic Resonance Report ---
Indication: encephalopathy, adenocarcinoma lung with mets to kidne PROCEDURE: MR head/brain wo/w con: Encounter: Initial Comparisons: Head CT dated April 24, 2017 Technique: Multiplanar, multisequence, MR imaging of the head with and without contrast was acquired. Contrast: 7 mL of Gadavist FINDINGS: The ventricles are of normal size, shape, and contour for the patient's age. T1 hypointense, T2 hyperintense enhancing lesion in the left frontal lobe with surrounding vasogenic edema consistent with a metastatic focus. This shows ring enhancement and measures 2.7 cm in diameter. No additional metastatic foci identified. There is motion artifact. Mild periventricular white matter disease consistent with chronic microvascular ischemia. The brain stem, cerebellum, and cerebral hemispheres otherwise have a normal morphologic appearance as well as MR signal intensity on all pulse sequences. There are no areas of restricted diffusion to suggest an acute infarct. No intracranial hemorrhage, or hydrocephalus. The visualized portions of the orbits, calvarium, paranasal sinuses, and skull base demonstrate no significant abnormality. IMPRESSION: Ring enhancing left frontal lobe lesion most consistent with a brain metastasis. .
[2017-04-25] MEDS: LIDOCAINE 1% 2ml INJ 10 MG, POTASSIUM CHLORIDE INJ 10 MEQ in NS 100 ML IV SCH ×4 (11:29→15:04)
[2017-04-25] MEDS ORDERED: DEXAMETHASONE 4 MG/ML INJECTION IVP ONE (12:36)
[2017-04-25] MEDS ORDERED: INSULIN ASPART 100unit/ml INJECTION SQ PRN (12:38)
[2017-04-25] MEDS ORDERED: NS 1,000 ML IV SCH (13:00)
[2017-04-25] MEDS: SALINE FLUSH 10ml SYRINGE IV PRN (13:48)
[2017-04-25] MEDS: NS 1,000 ML IV SCH ×4 (13:56→23:59)
[2017-04-25] MEDS: DEXAMETHASONE 4 MG TABLET PO SCH ×2 (15:44→20:19)
[2017-04-25] MEDS: LEVETIRACETAM INJ 500 MG in NS 100 ML IV SCH (19:25)
[2017-04-25] MEDS: FAMOTIDINE 40 MG TABLET PO SCH (21:29)
[2017-04-26] MEDS ORDERED: FALL RISK - PHARMACY CONSULT MC PRN (01:29)
[2017-04-26] MEDS: DEXAMETHASONE 4 MG TABLET PO SCH ×4 (02:05→20:58)
[2017-04-26] MEDS: NS 1,000 ML IV SCH ×3 (02:16→17:31)
[2017-04-26] MEDS: SALINE FLUSH 10ml SYRINGE IV PRN ×2 (03:45→18:56)
[2017-04-26] MEDS: ALBUTEROL/IPRATROPIUM 2.5mg-0.5mg/3ml NEB IH SCH ×4 (06:55→19:46)
[2017-04-26] MEDS: LIDOCAINE VISCOUS 2% ORAL LIQUID 15ml PO PRN (06:58)
[2017-04-26] MEDS: LEVETIRACETAM INJ 500 MG in NS 100 ML IV SCH (09:36)
--- NOTE | 2017-04-26 10:12 | XRay Report ---
Indication: confusion PROCEDURE: XR chest 1V: Encounter: Initial Comparison: PET /CT dated March 13, 2017 Findings: Lung masses better seen on prior PET/CT exams. No focal consolidative pneumonia, gross pleural effusion or pneumothorax. Right IJ port catheter. Heart size and mediastinal contours are within normal limits. Impression: No pneumonia. .
--- NOTE | 2017-04-26 10:13 | XRay Report ---
Indication: fall, left hip pain PROCEDURE: XR pelvis w/ 2 view LT hip: Encounter: Initial Comparison: None Findings: There is no acute fracture, dislocation or malalignment identified. Impression: No acute osseous abnormality. .
--- NOTE | 2017-04-26 10:14 | CT Scan Report ---
Indication: fall PROCEDURE: CT cervical spine wo con: Encounter: Initial Comparison: None Technique: Axial CT images through the cervical spine were performed without contrast. Coronal and sagittal reformatted images were also obtained. Automated Exposure Control and Iterative Reconstruction dose reducing techniques were utilized. FINDINGS: The alignment of the cervical spine is normal. Multilevel degenerative changes are present. There is no evidence of acute fracture or subluxation of the cervical spine. The atlantoaxial articulation, dens, and upper cervical spine demonstrate no subluxation. Heterotopic ossification posterior to the C5 and C6 spinous processes. Left upper lobe lung mass, incompletely evaluated with paraseptal emphysema. IMPRESSION: No acute traumatic abnormality of the cervical spine. There is a preliminary report by [facility]. .
--- NOTE | 2017-04-26 10:31 | CT Scan Report ---
Indication: confusion PROCEDURE: CT head/brain wo con: Encounter: Initial Comparison: Brain MRI dated April 25, [address] dated October 08, 2016 Technique: Axial CT images through the head were performed without contrast. Iterative Reconstruction dose reducing technique was utilized. FINDINGS: New focal region of vasogenic edema in the anterior medial left frontal lobe. This corresponds to a ring-enhancing presumed metastasis on the comparison MRI. These findings are new since the last CT. The ventricles are of normal size, shape, and contour for the patient's age. There are scattered areas of low attenuation in the white matter which most likely represent changes from chronic microvascular ischemia. The brainstem, cerebellum, and cerebral hemispheres otherwise have a normal morphology and CT attenuation. No acute territorial stroke or acute intracranial hemorrhage. The visualized portions of the skull base, midface, and calvarium demonstrate no abnormality. The paranasal sinuses are well aerated and free of significant disease. The tympanic and mastoid cavities appear normal. IMPRESSION: New left frontal lobe presumed metastasis. No acute intracranial hemorrhage. There is a preliminary report by [facility]. .
[2017-04-26] MEDS ORDERED: LIDOCAINE 2% JELLY (Urojet) 20ml MM ONE (11:26)
--- NOTE | 2017-04-26 13:05 | Progress Note ---
Subjective: Mr. Lopez is seen with family members at the bedside. Patient reports that his head doesn't feel right and family members comment that he is not processing well. Patient is frustrated that he still doesn't know what year it is but he is oriented [facility]. He denies dyspnea, nausea, or headache. He is able to stand and support his weight today and feels like his power is good. He denied lightheadedness. His appetite is good and he is having no difficulty swallowing. He has aches and pains which he attributes to be old but denies any new or localized pain. Objective Vital signs: Temperature 98.4 F 04/26/17 08:02 Pulse Rate 69 04/26/17 12:00 Respiratory Rate 12 04/26/17 11:30 Blood Pressure 153/96 H 04/26/17 11:00 Pulse Oximetry 99 04/26/17 11:30 Oxygen Delivery Method Room Air I/O 5428/1637 weight up 5.6 kg EXAM General-NAD, alert, speech fluent although somewhat slow HEENT-conjunctiva clear, sclera anicteric, EOMI, very minor right ptosis, oropharynx with persistent edema of the tongue although it's clearly improved from yesterday, there is some maceration/bruising of the tongue peripherally but no active bleeding Lungs-respirations nonlabored, good airflow, breath sounds are clear Cardiac-regular rhythm, S1-S2 Abd-soft, nontender, without palpable mass, bowel sounds present Ext-without edema Neuro-moving all extremities well, power grossly normal, sensation intact 4 extremities Psych-oriented 2, tearful intermittently - Weight: 75.6 kg Results - Labs CBC & Chem 7: 04/26/17 03:45 04/26/17 03:45 Labs: Differential unremarkable, blood sugars consistently under 135 CPK 12,075 Assessment and Plan (1) Brain metastases Problem details: Solitary 2.7 cm left frontal lobe lesion with vasogenic edema Current visit: Yes Status: Acute (2) Rhabdomyolysis Current visit: Yes Status: Acute 04/25/17 02:16 most likely multifactorial. if laid on ground for a period of time and seizure. CK is remarkable elevated. will start HCO3 gtt and monitor urine output and renal functin with repeat labs in the am. Will cycle CK to demonstrate improvement (3) Metabolic encephalopathy Current visit: Yes Status: Acute 04/25/17 02:09 This pateint presents with altered mental status that has slowly improved with fluids. CT head no acute process. metabolic panel is reasuring (have ordered TSH for am). DDX: post ictal, metastatic tumor to brain no visualized by CT, CVA, PRES from elevated blood pressure. Discussed in detail with family and they want patient to stay locally. Tonight admit to ICU, neuro checks, seizure precautions. repeat labs in the am. MR in am. for now keep blood pressure around 200/100 (in case CVA). If patient seizes will load with keppra. Will not automatically commit to anti seizure regimen without further evidence of seizure activity (4) Adenocarcinoma of lung, stage 4 Current visit: Yes Status: Acute 04/25/17 02:17 refer to oncology note. (not access to tonight). chemo held acutely for planned nephrectomy soon. stage IV with met ds across diaphragm. (5) Dehydration Current visit: Yes Status: Acute 04/25/17 02:18 patient wihtout sig intake for multiple hours. hydrate and monitro renal function (6) COPD (chronic obstructive pulmonary disease) Current visit: Yes Status: Acute 04/25/17 02:18 will cover with duoneb overnight. consider albuterol prn. currently not exacerbation. lungs are mostly diminished with rare wheeze. (7) Tobacco abuse Current visit: Yes Status: Acute 04/25/17 02:18 to be aware of. prognosis is poor and not interested in forcing this issue at this time. (8) Hypertension Current visit: Yes Status: Acute 04/25/17 02:19 as noted above, will shoot for 200/100. continue b singh and add hydralazine iv prn. due to risk to kidneys with rhabdo, will hold DICK inhibitor acutely, adjust meds as indicated. (9) Renal mass, left Problem details: Probable renal cell carcinoma Current visit: Yes Status: Acute Assessment and Plan: Solitary brain met with surrounding edema Probable seizure secondary to above Acute toxic/metabolic encephalopathy due to seizure/vasogenic edema Rhabdomyolysis Abnormal liver enzymes (consistent with rhabdo) Adenocarcinoma of the lung Left renal mass, probable renal cell carcinoma Hypokalemia Anemia COPD Hypertension Macular degeneration Mr. Lopez is doing well although developing some reactive depression. Blood sugars well controlled-discontinue Accu-Cheks. Continue Decadron 4 times daily. Continue Keppra-convert to oral administration. PT/OT evaluations in the morning. CPK improving progressively-reassess this afternoon, continue high-volume fluids. Good urine output. Renal function stable. Anticipate outpatient follow-up with Dr. Ospina later this week. Potassium normalized with supplementation-continue to monitor intermittently. Blood pressure moderately elevated morning-resume lisinopril today. Discussed with nursing, discussed with Dr. Ospina; laboratory data reviewed. Sepsis Assessment - Evaluation Sepsis screening result: No Definite Risk Hospital Course Summary Disclaimer: The visit summary below is not to be considered part of the above Progress Note. Hospital Course: 04/26/17 Admitted after patient found down with blood in his mouth and decreased level of consciousness. CT head with small vessel ischemic change although suspicious lesion left frontal lobe by my review. Suspect unwitnessed seizure with development of rhabdomyolysis-CPK 35,520 on presentation. MRI confirmed suspicion of metastatic lesion in the left frontal lobe. Dr. Ospina updated on findings. Decadron initiated at 4 mg every 6 hours; Accu-Cheks to be monitored and insulin available if needed. Keppra 500 mg twice a day. PT/OT consultations. Patient will require further evaluation of the frontal lobe lesion to determine if secondary to lung cancer or the renal lesion. Defer this workup to Dr. Ospina following initial stabilization. Rhabdomyolysis likely due to downtime and seizure activity-continue high-volume fluids. Renal function stable thus far, reassess CPK and renal function this afternoon and in a.m. Potassium supplement initiated IV/by mouth. Blood pressure elevated on arrival but has stabilized after dose of Apresoline this morning and subsequent resumption of home medications. Anemia likely chronic, will monitor. 04/26/17 13:23 Mr. Lopez is doing well although developing some reactive depression. Blood sugars well controlled-discontinue Accu-Cheks. Continue Decadron 4 times daily. Continue Keppra-convert to oral administration. PT/OT evaluations in the morning. CPK improving progressively-reassess this afternoon, continue high-volume fluids. Good urine output. Anticipate outpatient follow-up with Dr. Ospina later this week. Potassium normalized with supplementation-continue to monitor intermittently. Blood pressure moderately elevated morning-resume lisinopril today.
[2017-04-26] MEDS: SENNA + DOCUSATE TABLET PO SCH ×2 (15:20→20:59)
[2017-04-26] MEDS: LISINOPRIL 20 MG TABLET PO SCH (15:21)
[2017-04-26] MEDS: LEVETIRACETAM 500 MG/5 ML ORAL LIQUID PO SCH (20:59)
[2017-04-26] MEDS: FAMOTIDINE 40 MG TABLET PO SCH (20:59)
[2017-04-27] MEDS: NS 1,000 ML IV SCH ×3 (01:21→10:53)
[2017-04-27] MEDS: SALINE FLUSH 10ml SYRINGE IV PRN (03:57)
[2017-04-27] MEDS: DEXAMETHASONE 4 MG TABLET PO SCH ×3 (03:57→14:59)
[2017-04-27 04:03] VITALS: RESP 16
[2017-04-27] MEDS: ALBUTEROL/IPRATROPIUM 2.5mg-0.5mg/3ml NEB IH SCH ×2 (06:46→10:47)
[2017-04-27] MEDS: LEVETIRACETAM 500 MG/5 ML ORAL LIQUID PO SCH (08:28)
[2017-04-27] MEDS: LISINOPRIL 20 MG TABLET PO SCH (08:29)
[2017-04-27] MEDS: SENNA + DOCUSATE TABLET PO SCH (08:29)
[2017-04-27 12:07] VITALS: BP 155/93; PULSE 70; TEMP 97; O2SAT 95
[2017-04-27 12:20] VITALS: BMI 21.4
--- NOTE | 2017-04-27 13:06 | Progress Note ---
Subjective: F/U: Rhabdo Doing well today. Confusion decreasing. Ambulating well. Appetite with slight decrease, but taking oral in well. No ab pain. No mouth pain. Stools stable. Breathing well without SOA, cough or congestion. No chest pressure. No f/c. Objective Vital signs: Temperature 97 F 04/27/17 12:00 Pulse Rate 70 04/27/17 12:00 Respiratory Rate 16 04/27/17 12:00 Blood Pressure 155/93 H 04/27/17 12:00 Pulse Oximetry 95 04/27/17 12:00 Oxygen Delivery Method Room Air Oxygen Flow Rate 2 Height: 1.8 m Weight: 69.853 kg Body Mass Index: 21.4 - Constitutional Present: no acute distress, well nourished, well developed, cooperative - Routine HEENT Exam Head: Present: normocephalic, atraumatic Eye: Present: EOMI, PERRL ENT: Present: mucous membranes moist (No thrush ) - Routine Respiratory Exam Present: distant breath sounds. Absent: accessory muscle use, respiratory distress, rhonchi, wheezes, crackles - Routine Cardiovascular Exam Present: RRR - Routine Abdominal Exam Present: soft, normoactive bowel sounds, non distended, non tender - Routine Extremities Exam Present: no edema, pulses intact. Absent: cyanosis, clubbing - Routine Musculoskeletal Exam Musculoskeletal: Present: no clubbing or cyanosis, no joint swelling - Routine Skin Exam Present: intact, warm, normal turgor. Absent: cyanosis - Routine Neurological Exam Present: alert, CN II-XII intact, vision grossly intact, hearing grossly intact. Absent: motor deficit - Routine Psychiatric Exam Present: normal affect. Absent: anxious, agitated, paranoid Results - Labs CBC & Chem 7: 04/26/17 03:45 04/27/17 03:58 Labs: Laboratory Tests 04/24/17 04/25/17 04/25/17 21:50 02:06 08:16 Creatine Kinase 60420 H 66962 H 75642 H 04/25/17 04/26/17 04/26/17 16:18 03:45 15:04 Creatine Kinase 74025 H 17931 H 42911 H 04/27/17 03:58 Creatine Kinase 9312 H Assessment and Plan (1) Rhabdomyolysis Current visit: Yes Status: Acute 04/25/17 02:16 most likely multifactorial. if laid on ground for a period of time and seizure. CK is remarkable elevated. will start HCO3 gtt and monitor urine output and renal functin with repeat labs in the am. Will cycle CK to demonstrate improvement (2) Metabolic encephalopathy Current visit: Yes Status: Resolved 04/25/17 02:09 This pateint presents with altered mental status that has slowly improved with fluids. CT head no acute process. metabolic panel is reasuring (have ordered TSH for am). DDX: post ictal, metastatic tumor to brain no visualized by CT, CVA, PRES from elevated blood pressure. Discussed in detail with family and they want patient to stay locally. Tonight admit to ICU, neuro checks, seizure precautions. repeat labs in the am. MR in am. for now keep blood pressure around 200/100 (in case CVA). If patient seizes will load with keppra. Will not automatically commit to anti seizure regimen without further evidence of seizure activity (3) Adenocarcinoma of lung, stage 4 Current visit: Yes Status: Acute 04/25/17 02:17 refer to oncology note. (not access to tonight). chemo held acutely for planned nephrectomy soon. stage IV with met ds across diaphragm. (4) Dehydration Current visit: Yes Status: Resolved 04/25/17 02:18 patient wihtout sig intake for multiple hours. hydrate and monitro renal function (5) COPD (chronic obstructive pulmonary disease) Current visit: Yes Status: Chronic 04/25/17 02:18 will cover with duoneb overnight. consider albuterol prn. currently not exacerbation. lungs are mostly diminished with rare wheeze. (6) Tobacco abuse Current visit: Yes Status: Chronic 04/25/17 02:18 to be aware of. prognosis is poor and not interested in forcing this issue at this time. (7) Hypertension Current visit: Yes Status: Chronic 04/25/17 02:19 as noted above, will shoot for 200/100. continue b singh and add hydralazine iv prn. due to risk to kidneys with rhabdo, will hold DICK inhibitor acutely, adjust meds as indicated. (8) Brain metastases Problem details: Solitary 2.7 cm left frontal lobe lesion with vasogenic edema Current visit: Yes Status: Acute (9) Renal mass, left Problem details: Probable renal cell carcinoma Current visit: Yes Status: Acute DVT Prophylaxis: SCD's Resuscitation Status: Full Code Assessment and Plan: Solitary brain met with surrounding edema Probable seizure secondary to above Acute toxic/metabolic encephalopathy due to seizure/vasogenic edema Rhabdomyolysis Abnormal liver enzymes (consistent with rhabdo) Adenocarcinoma of the lung Left renal mass, probable renal cell carcinoma Hypokalemia Anemia COPD Hypertension Macular degeneration Patient continues to do well. Strength improving. Thoughts clearing. Creatinine stable. CPK trending down - was 9312 this am. Urinating well. Eating and drinking well. Tolerating Keppra and Decadron well. Will discharge to home today. Continue Keppra and Decadron due to brain met. Will have pt see Dr Ospina to schedule biopsy of brain met. F/U with Dr House in about 1 week to recheck CMP and CPK. See orders for details. Case discussed with Dr Ospina. - Time spent with patient discharge greater than 30 minutes Sepsis Assessment - Evaluation Sepsis screening result: No Definite Risk Hospital Course Summary Disclaimer: The visit summary below is not to be considered part of the above Progress Note. Hospital Course: 04/25/17 Admitted after patient found down with blood in his mouth and decreased level of consciousness. CT head with small vessel ischemic change although suspicious lesion left frontal lobe by my review. Suspect unwitnessed seizure with development of rhabdomyolysis-CPK 35,520 on presentation. MRI confirmed suspicion of metastatic lesion in the left frontal lobe. Dr. Ospina updated on findings. Decadron initiated at 4 mg every 6 hours; Accu-Cheks to be monitored and insulin available if needed. Keppra 500 mg twice a day. PT/OT consultations. Patient will require further evaluation of the frontal lobe lesion to determine if secondary to lung cancer or the renal lesion. Defer this workup to Dr. Ospina following initial stabilization. Rhabdomyolysis likely due to downtime and seizure activity-continue high-volume fluids. Renal function stable thus far, reassess CPK and renal function this afternoon and in a.m. Potassium supplement initiated IV/by mouth. Blood pressure elevated on arrival but has stabilized after dose of Apresoline this morning and subsequent resumption of home medications. Anemia likely chronic, will monitor. 04/26/17 13:23 Mr. Lopez is doing well although developing some reactive depression. Blood sugars well controlled-discontinue Accu-Cheks. Continue Decadron 4 times daily. Continue Keppra-convert to oral administration. PT/OT evaluations in the morning. CPK improving progressively-reassess this afternoon, continue high-volume fluids. Good urine output. Anticipate outpatient follow-up with Dr. Ospina later this week. Potassium normalized with supplementation-continue to monitor intermittently. Blood pressure moderately elevated morning-resume lisinopril today. 04/27/17 13:12 Patient continues to do well. Strength improving. Thoughts clearing. Creatinine stable. CPK trending down - was 9312 this am. Urinating well. Eating and drinking well. Tolerating Keppra and Decadron well. Will discharge to home today. Continue Keppra and Decadron due to brain met. Will have pt see Dr Ospina to schedule biopsy of brain met. F/U with Dr House in about 1 week to recheck CMP and CPK. See orders for details.
--- NOTE | 2017-04-27 13:22 | Discharge Summary ---
Discharge Information Date of admission: 04/25/17 01:07 Anticipated date of discharge: 04/27/17 Attending Physician: Teresita Garcia MD Primary care physician: Tru House MD Consults: 04/25/17 02:56 Dietary Consult [CONS] Routine Comment: Reason For Exam: - Discharge Diagnosis (1) Rhabdomyolysis Status: Acute (2) Brain metastases Problem Details: Solitary 2.7 cm left frontal lobe lesion with vasogenic edema Status: Acute (3) Metabolic encephalopathy Status: Resolved (4) Adenocarcinoma of lung, stage 4 Status: Chronic (5) Dehydration Status: Resolved (6) COPD (chronic obstructive pulmonary disease) Qualifiers: COPD type: unspecified COPD Qualified Code(s): J44.9 - Chronic obstructive pulmonary disease, unspecified Status: Chronic (7) Tobacco abuse Status: Chronic (8) Hypertension Status: Chronic (9) Renal mass, left Problem Details: Probable renal cell carcinoma Status: Acute - Laboratory Labs: 04/26/17 03:45 04/27/17 03:58 Laboratory Tests 04/24/17 04/24/17 04/25/17 21:50 21:50 02:06 AST 416 H ALT 93 H Creatine Kinase 75205 H 98183 H Prolactin 4.8 04/25/17 04/25/17 04/25/17 05:09 08:16 16:18 AST 387 H ALT 94 H Creatine Kinase 35406 H 23650 H Prolactin 04/26/17 04/26/17 04/27/17 03:45 15:04 03:58 AST ALT Creatine Kinase 20019 H 68656 H 9312 H Prolactin - Radiology Radiology: Date of Exam: 04/25/17 Reason for Exam(s): encephalopathy, adenocarcinoma lung with mets to kidne Indication: encephalopathy, adenocarcinoma lung with mets to kidne PROCEDURE: MR head/brain wo/w con: Comparisons: Head CT dated April 24, 2017 Technique: Multiplanar, multisequence, MR imaging of the head with and without contrast was acquired. Contrast: 7 mL of Gadavist FINDINGS: The ventricles are of normal size, shape, and contour for the patient's age. T1 hypointense, T2 hyperintense enhancing lesion in the left frontal lobe with surrounding vasogenic edema consistent with a metastatic focus. This shows ring enhancement and measures 2.7 cm in diameter. No additional metastatic foci identified. There is motion artifact. Mild periventricular white matter disease consistent with chronic microvascular ischemia. The brain stem, cerebellum, and cerebral hemispheres otherwise have a normal morphologic appearance as well as MR signal intensity on all pulse sequences. There are no areas of restricted diffusion to suggest an acute infarct. No intracranial hemorrhage, or hydrocephalus. The visualized portions of the orbits, calvarium, paranasal sinuses, and skull base demonstrate no significant abnormality. IMPRESSION: Ring enhancing left frontal lobe lesion most consistent with a brain metastasis. History of Present Illness HPI: This is a 67 y/o male who was diagnosed with adenocarcinoma of the lung late last year and has undergone chemo for tumor. The patient most recently was discovered to have metastatic disease tohis right kidney and has stopped his chemo for the past 3 weeks in preparation for a nephrectomy. The patient has had generally incrased weakness recently but tonight the found the patient on the floor altered. The down time is unkown but could be as long as 18 hours. The patient had blood coming from his mouth and thre was clear oral injury. In the ED the pateint is hypertensive and neuro workup was unremakrable with a CT of the head and c spine no acute disease process. A CXR was unremarkable to acute change. The patient responded to 2 L NS in the ED and is now more alert. Metabolic workup demonstrates mild dehydration but otherwise preserved renal function. At this time the patient is to be admitted into the ICU for further evaluation. For complete details of the H&P, refer to that document. Objective Vital signs: Temperature 97 F 04/27/17 12:00 Pulse Rate 70 04/27/17 12:00 Respiratory Rate 16 04/27/17 12:00 Blood Pressure 155/93 H 04/27/17 12:00 Pulse Oximetry 95 04/27/17 12:00 Oxygen Delivery Method Room Air Oxygen Flow Rate 2 Height: 1.8 m Weight: 69.853 kg Body Mass Index: 21.4 Hospital Course This is a general summary of the patient's hospital course. For more details refer to the complete medical record. Hospital course: 04/25/17 Admitted after patient found down with blood in his mouth and decreased level of consciousness. CT head with small vessel ischemic change although suspicious lesion left frontal lobe by my review. Suspect unwitnessed seizure with development of rhabdomyolysis-CPK 35,520 on presentation. MRI confirmed suspicion of metastatic lesion in the left frontal lobe. Dr. Ospina updated on findings. Decadron initiated at 4 mg every 6 hours; Accu-Cheks to be monitored and insulin available if needed. Keppra 500 mg twice a day. PT/OT consultations. Patient will require further evaluation of the frontal lobe lesion to determine if secondary to lung cancer or the renal lesion. Defer this workup to Dr. Ospina following initial stabilization. Rhabdomyolysis likely due to downtime and seizure activity-continue high-volume fluids. Renal function stable thus far, reassess CPK and renal function this afternoon and in a.m. Potassium supplement initiated IV/by mouth. Blood pressure elevated on arrival but has stabilized after dose of Apresoline this morning and subsequent resumption of home medications. Anemia likely chronic, will monitor. 04/26/17 13:23 Mr. Lopez is doing well although developing some reactive depression. Blood sugars well controlled-discontinue Accu-Cheks. Continue Decadron 4 times daily. Continue Keppra-convert to oral administration. PT/OT evaluations in the morning. CPK improving progressively-reassess this afternoon, continue high-volume fluids. Good urine output. Anticipate outpatient follow-up with Dr. Ospina later this week. Potassium normalized with supplementation-continue to monitor intermittently. Blood pressure moderately elevated morning-resume lisinopril today. 04/27/17 13:12 Patient continues to do well. Strength improving. Thoughts clearing. Creatinine stable. CPK trending down - was 9312 this am. Urinating well. Eating and drinking well. Tolerating Keppra and Decadron well. Will discharge to home today. Continue Keppra and Decadron due to brain met. Will have pt see Dr Ospina to schedule biopsy of brain met. F/U with Dr House in about 1 week to recheck CMP and CPK. See orders for details. Time spent with patient: discharge greater than 30 minutes DVT Prophylaxis: SCD's Discharge Plan - Med Rec/Dispo Referrals/Follow Up: Salo Ospina MD [Physician] - 1 Day (Call his schedular for apt tomorrow - will need to be set up for Brain Bx. ) Tru House MD [Family Provider] - 1 Week (Check CMP and CPK due to resolving rhabo. ) Truven Instructions: Encephalopathy (GEN) Prescriptions: New Dexamethasone [Decadron] 4 mg PO Q6HR #40 tablet Levetiracetam Oral Liq [Keppra] 500 mg PO BID #60 ml Senna + Docusate [Senna Plus Tablet] 2 tab PO BID PRN tablet PRN Reason: Constipation Continue Budesonide/Formoterol Fumarate [Symbicort 160-4.5 Mcg Inhaler] 2 puff INH BID #31 Lisinopril/Hydrochlorothiazide [Lisinopril-Hctz 20-12.5 mg Tab] 1 tab PO DAILY #30 Albuterol Sulfate [Ventolin Hfa] 2 puff ORAL INH QID PRN #0 inhaler PRN Reason: SHORTNESS OF AIR/WHEEZING Ibuprofen 600 mg PO Q6H PRN 10 Days PRN Reason: PAIN Nebivolol [Bystolic] 1.5 tab PO DAILY Discharge Instructions/Outpatient Orders: Final Provider Discharge Instructions Location: Determined By Patient - Disposition 01 Discharged Home, Self-Care
== END 2017-04-27 15:10 | disposition home or self-care (01) | DRG 71 ==
LOC: ED 21:09 → CCU 04-25 01:07 → MED 04-26 17:34
PROVIDERS: ADMIT Emergency Medicine; ATTEND Internal Medicine

== ENCOUNTER 2017-06-12 14:34 | Inpatient (IN) ==
[2017-06-12] MEDS ORDERED: METHYLPREDNISOLONE SOD SUCC 125mg/2ml INJECTION IVP ONE (14:41)
[2017-06-12] MEDS ORDERED: ENOXAPARIN 150 MG/ML INJECTION SQ ONE (14:41)
--- OUTSIDE RECORDS SUMMARY | 2017-06-12 14:59 | External Medical Summary | Referral Summary ---
:1950 Author Organization [facility] Address [address] [place] [address] Care Team Providers Name Role Phone Tru House Primary Care Physician Encounter VC Date(s): 04/23/16 - 04/23/16 [facility] [address] [place] [address]- [place] Discharge Diagnosis: Left inguinal hernia Discharge Disposition: 01-Home or Self Care Attending Physician: Wilmer Pan MD Admitting Physician: Wilmer Pan MD Vital Signs Most recent to oldest [Reference Range]: 1 Temperature Oral [35.8-37.3 degC] 36.8 degC (04/23/16 10:43 AM) Peripheral Pulse Rate [60-100 bpm] 63 bpm (04/23/16 10:43 AM) Respiratory Rate [14-20 br/min] 12 br/min *LOW* (04/23/16 10:43 AM) Blood Pressure [90-140/60-90 mmHg] 174/104 mmHg *HI* (04/23/16 10:43 AM) SpO2 95 % (04/23/16 10:43 AM) Problem List Condition Effective Dates Status Health Status Informant Acute lumbar back pain(Confirmed) Active Benign essential Active hypertension(Confirmed) COPD (chronic obstructive pulmonary Active disease)(Confirmed) History of alcoholism(Confirmed) Active Hyponatremia(Confirmed) Active Tobacco use disorder(Confirmed) Active Vision changes(Confirmed) Active Allergies, Adverse Reactions, Alerts No Known Allergies Medications Bystolic 5 mg oral tablet 1 1/2 tabs, Oral, Daily, # 135 tabs, 2 Refill(s), [facility] [id number], 1 1/2 tabs Oral Daily Start Date: 02/14/16 Status: Orderedlisinopril-hydrochlorothiazide 20 mg-12.5 mg oral tablet 1 tabs, Oral, Daily, # 90 tabs, 2 Refill(s), Pharmacy: [facility] #[id number] Start Date: 02/14/16 Stop Date: 11/10/16 Status: OrderedNorco 7.5 mg-325 mg oral tablet 1-2 tabs, Oral, q4hr, as needed for pain, # 40 tabs, 0 Refill(s) Start Date: 04/23/16 Stop Date: 04/30/16 Status: OrderedSymbicort 160 mcg-4.5 mcg/inh inhalation aerosol See Instructions, INHALE TWO PUFFS BY MOUTH TWICE A DAY, # 3 Each, 2 Refill(s), Pharmacy: [facility] #[id number] Start Date: 02/14/16 Status: OrderedVentolin HFA 90 mcg/inh inhalation aerosol 2 puffs, Inhalation, QID, as needed for wheezing, # 1 Each, 2 Refill(s), Pharmacy: [facility] #[id number], 2 puffs Inhalation QID,PRN:as needed for wheezing [...] Author: Brynn Palacios RN Date: 04/23/[address] [facility] [place] [facility] Operative Instructions Ambulation Unrestricted Exercise Light [...] office at . In an emergency, call [phone] ( [phone]), if you cannot reach your physic kayley. If you find that you cannot contact [...] lets some fat or part of the sm all intestine bulge through. An inguinal hernia can [...] cannot get back into the abdomen. The bloo d supply can be cut off. If that [...] of the hernia makes a difference. Options include : Watchful waiting. This is often suggested if [...] The hernia is put back inside the abdom en. The weak area in the muscles is [...] surgeon repairs the hernia with mesh by l ooking with the video camera and using two [...] Released: 02/21/2010 Document Revised: 12/27/2012 Document Reviewed: 02/21/2010 Exit[employer] Patient Information 2016 [employer]. Follow Up With: Where: When: [facility] [place]; [address], [place] [id number] Business (1) Within 1 to 2 weeks Comments:
--- OUTSIDE RECORDS SUMMARY | 2017-06-12 14:59 | External Medical Summary | Referral Summary ---
:1950 Author Organization [facility] Address [address] [place] [address] Care Team Providers Name Role Phone Tru House Primary Care Physician Encounter VC Date(s): 08/27/16 - 08/27/16 [facility] [address] [place] [address]- [place] Discharge Diagnosis: Abnormal chest CT Discharge Disposition: [...] Daily, # 135 tabs, 1 Refill(s), Pharmacy: [facility] # [id number], 1 1/2 tabs Oral Daily Start Date: 08/14/16 Status: Orderedlisinopril-hydrochlorothiazide 20 mg-12.5 mg oral tablet 1 tabs, Oral, Daily, # 90 tabs, 1 Refill(s), Pharmacy: [facility] #[id number] Start Date: 08/14/16 Stop Date: 02/10/17 Status: OrderedSymbicort 160 mcg-4.5 mcg/inh inhalation aerosol See Instructions, INHALE TWO PUFFS BY MOUTH TWICE A DAY, # 3 Each, 1 Refill(s), Pharmacy: [facility] #[id number] Start Date: 08/14/16 Status: OrderedtraMADol 50 mg oral tablet 50 mg 1 tabs, Oral, q12hr, as needed for pain, SLong Ortiz, # 60 tabs, 0 Refill(s ) Start Date: 08/14/16 Status: OrderedVentolin HFA 90 mcg/inh inhalation aerosol 2 puffs, Inhalation, QID, as needed for wheezing, # 1 Each, 2 Refill(s), Pharmacy: [facility] #[id number], 2 puffs Inhalation QID,PRN:as needed for wheezing [...]
--- OUTSIDE RECORDS SUMMARY | 2017-06-12 14:59 | External Medical Summary | Referral Summary ---
:1950 Author Organization [facility] Address [address] [place] [address] [place] [address] Care Team Providers Name Role Phone Tru House Primary Care Physician Encounter VC Date(s): 10/28/16 - 10/28/16 [facility] [address] [place] [address] [place] [address] [place] Discharge Diagnosis: Blood in stool Discharge Diagnosis: Lung cancer Discharge Diagnosis: Cancer of kidney Discharge Disposition: 01-Home or Self Care Attending Physician: Luis Reyes MD Admitting Physician: Luis Reyes MD Referring Physician: Salo Ospina MD Vital Signs Most recent to oldest [Reference Range]: 1 Temperature Tympanic [36.6-38.1 degC] 36.8 degC (10/28/16 1:36 PM) Peripheral Pulse Rate [60-100 bpm] 78 bpm (10/28/16 1:36 PM) Respiratory Rate [14-20 br/min] 18 br/min (10/28/16 1:36 PM) Blood Pressure [90-140/60-90 mmHg] 128/72 mmHg (10/28/16 1:36 PM) SpO2 93 % (10/28/16 [...] Daily, # 135 tabs, 1 Refill(s), Pharmacy: [facility] # [id number], 1 1/2 tabs Oral Daily Start Date: 08/14/16 Status: Orderedlisinopril-hydrochlorothiazide 20 mg-12.5 mg oral tablet 1 tabs, Oral, Daily, # 90 tabs, 1 Refill(s), Pharmacy: [facility] #[id number] Start Date: 08/14/16 Stop Date: 02/10/17 Status: OrderedMiscellaneous DME DME Item CT Guided Needle Biopsy Left Kidney DX: Left Kidney Mass (N28.89) Initiate all standing orders for CT Guided Needle Biopsy, See Instructions, # 1 Each, 0 Refill(s), Supply Start Date: 08/28/16 Status: OrderedMiscellaneous DME DME Item CT Guided Needle Biopsy Left Lung DX: R91.8 RAMONA Mass, See Instructions , # 1 Each, 0 Refill(s), Supply Start Date: 09/05/16 Status: OrderedSymbicort 160 mcg-4.5 mcg/inh inhalation aerosol See Instructions, INHALE TWO PUFFS BY MOUTH TWICE A DAY, # 3 Each, 1 Refill(s), Pharmacy: [facility] #[id number] Start Date: 08/14/16 Status: OrderedtraMADol 50 mg oral tablet 50 mg 1 tabs, Oral, q12hr, as needed for pain, S. Bharathilons, # 60 tabs, 0 Refill(s ) Start Date: 08/14/16 Status: OrderedVentolin HFA 90 mcg/inh inhalation aerosol 2 puffs, Inhalation, QID, as needed for wheezing, # 1 Each, 2 Refill(s), Pharmacy: [facility] #[id number], 2 puffs Inhalation QID,PRN:as needed for wheezing [...] Extracted from: Title: Office Visit Note Author: Luis Reyes MD Date: 10/28/16 Assessment/Plan 1.Blood in stool Ordered: Office Visit Level 4 New 52351 2.Lung cancer Ordered: Office Visit Level 4 New 3.Cancer of kidney Ordered: Office Visit Level 4 New Plan:Conservative management this time. Given his advanced [...] masswith several metastaticmediastinal lymph nodes as well a s direct invasion into his chest wall. Bone scan showed an area of increased uptake on the right fourth ribalthough nocorresponding CT scan findings were present to suggesta lytic lesion. Aylin ent was found to havefairly largemass also involving his left kidney highly suspicious for that of a renal cell carcinoma. I did providea copy of all hisradiographic results.I informed th e patient that as my clinical intuition that his rectal bleeding was likelya result of his recent bouts of constipation and internal hemorrhoids. Given the fact that his rectal bleeding is subsiding and the fact that he is undergoingchemotherapy for metastatic lung cancer recommendedthat we not proceed with colonoscopy at this time. I informed the patient that if he began to experience incr easing rectal bleedingthat he should contact the office and that we would likely prescribed him somehydrocortisone suppositories. If this did not result in any improvement then at that point time mayconsider proceeding with thecolonoscopy/endoscopic evaluation. Patient was instructed return back to his oncologist for his ongoing care.
--- OUTSIDE RECORDS SUMMARY | 2017-06-12 14:59 | External Medical Summary | Referral Summary ---
:1950 Author Organization [facility] Address [address] [place] [address] [place] [address] Care Team Providers Name Role Phone Tru House Primary Care Physician Encounter VC Date(s): 02/14/16 - 02/14/16 [facility] [address] [place] [address] [place] Discharge Disposition: 01-Home or Self Care Attending Physician: Tru House MD Admitting Physician: Tru House MD Vital Signs Most recent to oldest [Reference Range]: 1 Blood Pressure [90-140/60-90 mmHg] 140/90 mmHg (02/14/16 1:20 PM) Problem List Condition Effective [...] Daily, # 135 tabs, 2 Refill(s), Pharmacy: [facility] # [id number], 1 1/2 tabs Oral Daily Start Date: 02/14/16 Status: Orderedlisinopril-hydrochlorothiazide 20 mg-12.5 mg oral tablet 1 tabs, Oral, Daily, # 90 tabs, 2 Refill(s), Pharmacy: [facility] #[id number] Start Date: 02/14/16 Stop Date: 11/10/16 Status: OrderedSymbicort 160 mcg-4.5 mcg/inh inhalation aerosol See Instructions, INHALE TWO PUFFS BY MOUTH TWICE A DAY, # 3 Each, 2 Refill(s), Pharmacy: [facility] #[id number] Start Date: 02/14/16 Status: OrderedVentolin HFA 90 mcg/inh inhalation aerosol 2 puffs, Inhalation, QID, as needed for wheezing, # 1 Each, 2 Refill(s), Pharmacy: [facility] #[id number], 2 puffs Inhalation QID,PRN:as needed for wheezing Start Date: 02/14/16 Status: Ordered Results Hematology Most recent to oldest [Reference Range]: 1 WBC [4.8-10.8 10*3/uL] 6.6 10*3/uL (02/14/16 1:50 PM) RBC [4.60-6.20] 4.86 (02/14/16 1:50 PM) Hgb [14.0-18.0 gm/dL] 14.9 gm/dL (02/14/16 1:50 PM) Hct [42.0-52.0 %] 41.6 % *LOW* (02/14/16 1:50 PM) MCV [82.0-99.0 fL] 85.6 fL (02/14/16 1:50 PM) MCH [27.0-32.0 pg] 30.7 pg (02/14/16 1:50 PM) MCHC [32.0-36.0 gm/dL] 35.8 gm/dL (02/14/16 1:50 PM) RDW [11.5-14.5 %] 13.4 % (02/14/16 1:50 PM) Platelet [150-400 10*3/uL] 237 10*3/uL (02/14/16 1:50 PM) MPV [8.8-14.8 fL] 9.6 fL (02/14/16 1:50 PM) Immature Granulocytes [0.0-1.0 %] 0.0 % (02/14/16 1:50 PM) Neutrophils [51-75 %] 61 % (02/14/16 1:50 PM) Lymphocytes [20-46 %] 23 % (02/14/16 1:50 PM) Monocytes [4-11 %] 14 % *HI* (02/14/16 1:50 PM) Eosinophils [0-4 %] 1 % (02/14/16 1:50 PM) Basophils [0-2 %] 1 % (02/14/16 1:50 PM) Neutro Absolute [1.90-7.00 10*3] 4.06 10*3 (02/14/16 1:50 PM) Lymph Absolute [0.80-3.30 10*3] 1.54 10*3 (02/14/16 1:50 PM) [place] Absolute [0.30-1.00 10*3] 0.91 10*3 (02/14/16 1:50 PM) Eos Absolute [0.00-0.50 10*3] 0.09 10*3 (02/14/16 1:50 PM) Baso Absolute [0.00-0.20 10*3] 0.03 10*3 (02/14/16 1:50 PM) Chemistry Most recent to oldest [Reference Range]: 1 Sodium Lvl [135-144 mEq/L] 131 mEq/L *LOW* (02/14/16 1:50 PM) Potassium Lvl [3.5-5.2 mEq/L] 4.2 mEq/L (02/14/16 1:50 PM) Chloride [99-111 mEq/L] 98 mEq/L *LOW* (02/14/16 1:50 PM) CO2 [23-31 mEq/L] 28 mEq/L (02/14/16 1:50 PM) AGAP [3-20] 5 (02/14/16 1:50 PM) BUN [8-26 mg/dL] 18 mg/dL (02/14/16 1:50 PM) Glucose Lvl [70-99 mg/dL] 72 mg/dL (02/14/16 1:50 PM) Creatinine Lvl [0.72-1.25 mg/dL] 0.94 mg/dL (02/14/16 1:50 PM) eGFR [>60 mL/min] >60 mL/min 1 (02/14/16 1:50 PM) Calcium Lvl [8.9-10.5 mg/dL] 9.2 mg/dL (02/14/16 1:50 PM) Albumin Lvl [3.4-4.8 gm/dL] 4.2 gm/dL (02/14/16 1:50 PM) Total Protein [6.2-8.1 gm/dL] 6.3 gm/dL (02/14/16 1:50 PM) Globulin [1.8-4.0 gm/dL] 2.1 gm/dL (02/14/16 1:50 PM) ALT [0-55 U/L] 16 U/L (02/14/16 1:50 PM) AST [5-34 U/L] 20 U/L (02/14/16 1:50 PM) Alk Phos [40-150 U/L] 88 U/L (02/14/16 1:50 PM) Bili Total [0.2-1.2 mg/dL] 0.6 mg/dL (02/14/16 1:50 PM) PSA (wihout Reflex Free) [0.0-4.5 ng/mL] 1.8 ng/mL 2 (02/14/16 1:50 PM) Chol [0-199 mg/dL] 158 mg/dL (02/14/16 1:50 PM) Trig [0-149 mg/dL] 94 mg/dL (02/14/16 1:50 PM) HDL [40-84 mg/dL] 47 mg/dL (02/14/16 1:50 PM) LDL [0-130 mg/dL] 92 mg/dL (02/14/16 1:50 PM) VLDL Cholesterol [0-28 mg/dL] 19 mg/dL (02/14/16 1:50 PM) Cardiac Risk [0.0-5.7] 3.4 (02/14/16 1:50 PM) 1Result Comment: Multiply eGFR results by 1.21 for race.2Result Comment: AUA PSA Best Practice Guidelines: Age-Adjusted [...] shortness of breath. Asthma episodes, also called a sthma attacks, range from minor to life-threatening. Asthma cannot be cured, but medicines and lifestyle changes can help control it. CAUSES Asthma is believed to be caused by inherited (genetic) and environmental factors, but its exact cause is unknown. Asthma may be triggered by allergens, lung infections, or irritants in the air. Asthma t riggers are different for each person. Common triggers include: Animal dander. Dust mites. Cockroaches. Pollen from trees or grass. Mold. Smoke. Air pollutants such as dust, household dispatcher bus and trolley, hair sprays, aerosol sprays, paint fumes, strong [...] later. Symptoms include: Wheezing. Excessive nighttime or territory sales professional coughing. Frequent or severe coughing with a [...] includes a list of your asthma triggers an d how they may be avoided. It also [...] dust mask from a hardware store, a double- layered or microfilter vacuum street light cleaner bag, or a vacuum street light cleaner with a HEPA filter. Replace carpet [...] Released: 10/05/2006 Document Revised: 02/19/2015 Document Reviewed: 05/04/2014 [facility] Patient Information 2015 [employer] [facility]. No follow up information was provided. Extracted from: Title: Office Visit Note Author: Tru House MD Date: 02/14/16 Assessment/Plan COPD (chronic [...] recent appropriate entry and lab was ordered i f needed in the cpoe/nursing orders, and follow up recommended generally in 90 days and no later then six months. Lab pending. Ordered: Lipid Panel History of alcoholism This issue was reviewed, appears stable, and current therapy continued except as mentioned. Appropriate lab was reviewed from the most recent appropriate entry and lab was orde red if needed in the cpoe/nursing orders, and [...] # 1 Each , 2 Refill(s), Pharmacy: [facility] #[id number], 2 puffs Inhalation QID,PRN: as needed for wheezing budesonide-formoterol, See Instructions, INHALE TWO PUFFS BY MOUTH TWICE A DAY, # 3 Each, 2 Refill(s), Pharmacy: [facility] #[id number] lisinopril-hydrochlorothiazide, 1 tabs, Oral, Daily, # 90 tabs, 2 Refill(s), Pharmacy: [facility] #[id number] nebivolol, 1 1/2 tabs, Oral, Daily, # 135 tabs, 2 Refill(s), Pharmacy: [facility] #[id number], 1 1/2 tabs Oral Daily
--- OUTSIDE RECORDS SUMMARY | 2017-06-12 14:59 | External Medical Summary | Referral Summary ---
:1950 Author Organization Via [facility] Address [address] [place] [address] Care Team Providers Name Role Phone Tru House Primary Care Physician Encounter VC Date(s): 09/17/16 - 09/17/16 [facility] [address] [place] [address]- [place] Discharge Disposition: 01-Home or Self Care Attending Physician: Bhavesh Tipton MD Admitting Physician: Bhavesh Tipton MD Vital Signs Most recent to oldest [Reference Range]: 1 Temperature Temporal Artery [36.3-37.8 degC] 36.6 degC (09/17/16 8:51 AM) Peripheral Pulse Rate [60-100 bpm] 64 bpm (09/17/16 9:40 AM) Heart Rate Monitored [60-100 bpm] 84 bpm (09/17/16 3:51 PM) Respiratory Rate [14-20 br/min] 20 br/min (09/17/16 3:51 PM) Blood Pressure [90-140/60-90 mmHg] 143/103 mmHg *HI* (09/17/16 3:51 PM) Mean Arterial Pressure, Cuff 118 mmHg (09/17/16 3:51 PM) SpO2 96 % (09/17/16 [...] Daily, # 135 tabs, 1 Refill(s), Pharmacy: [facility] # [id number], 1 1/2 tabs Oral Daily Start Date: 08/14/16 Status: Orderedlisinopril-hydrochlorothiazide 20 mg-12.5 mg oral tablet 1 tabs, Oral, Daily, # 90 tabs, 1 Refill(s), Pharmacy: [facility] #[id number] Start Date: 08/14/16 Stop Date: 02/10/17 Status: [...] DAY, # 3 Each, 1 Refill(s), Pharmacy: [facility] #[id number] Start Date: 08/14/16 Status: OrderedtraMADol 50 mg oral tablet 50 mg 1 tabs, Oral, q12hr, as needed for pain, SLong Ortiz, # 60 tabs, 0 Refill(s ) Start Date: 08/14/16 Status: OrderedVentolin HFA 90 mcg/inh inhalation aerosol 2 puffs, Inhalation, QID, as needed for wheezing, # 1 Each, 2 Refill(s), Pharmacy: [facility] #[id number], 2 puffs Inhalation QID,PRN:as needed for wheezing Start Date: 02/14/16 Status: Ordered Results Hematology Most recent to oldest [Reference Range]: 1 WBC [4.8-10.8 10*3/uL] 7.2 10*3/uL (09/17/16 9:00 AM) RBC [4.60-6.20] 4.72 (09/17/16 9:00 AM) Hgb [14.0-18.0 gm/dL] 14.5 gm/dL (09/17/16 9:00 AM) Hct [42.0-52.0 %] 41.0 % *LOW* (09/17/16 9:00 AM) MCV [82.0-99.0 fL] 86.9 fL (09/17/16 9:00 AM) MCH [27.0-32.0 pg] 30.7 pg (09/17/16 9:00 AM) MCHC [32.0-36.0 gm/dL] 35.4 gm/dL (09/17/16 9:00 AM) RDW [11.5-14.5 %] 13.1 % (09/17/16 9:00 AM) Platelet [150-400 10*3/uL] 248 10*3/uL (09/17/16 9:00 AM) MPV [9.4-12.3 fL] 8.9 fL *LOW* (09/17/16 9:00 AM) Immature Granulocytes [0.0-1.0 %] 0.1 % (09/17/16 9:00 AM) Neutrophils [51-75 %] 65 % (09/17/16 9:00 AM) Lymphocytes [20-46 %] 22 % (09/17/16 9:00 AM) Monocytes [4-11 %] 12 % *HI* (09/17/16 9:00 AM) Eosinophils [0-4 %] 1 % (09/17/16 9:00 AM) Basophils [0-2 %] 0 % (09/17/16 9:00 AM) Neutro Absolute [1.90-7.00 10*3] 4.63 10*3 (09/17/16 9:00 AM) Lymph Absolute [0.80-3.30 10*3] 1.56 10*3 (09/17/16 9:00 AM) [place] Absolute [0.30-1.00 10*3] 0.88 10*3 (09/17/16 9:00 AM) Eos Absolute [0.00-0.50 10*3] 0.06 10*3 (09/17/16 9:00 AM) Baso Absolute [0.00-0.20 10*3] 0.03 10*3 (09/17/16 9:00 AM) Coagulation Most recent to oldest [Reference Range]: 1 INR [0.9-1.2] 1.1 (09/17/16 9:00 AM) PTT [25.0-35.0 seconds] 33.6 seconds (09/17/16 9:00 AM) Immunizations Vaccine Date Refusal [...]
--- OUTSIDE RECORDS SUMMARY | 2017-06-12 14:59 | External Medical Summary | Referral Summary ---
:1950 Author Organization [facility] [address] [place] [address] Care Team Providers Name Role Phone Tru House Primary Care Physician Encounter VC Date(s): 08/14/16 - 08/14/16 [facility] [address] [place] [address]- Discharge Diagnosis: COPD (chronic obstructive pulmonary disease) Discharge Diagnosis: Acute lumbar back pain Discharge Diagnosis: Benign essential hypertension Discharge Diagnosis: History of alcoholism Discharge Diagnosis: Tobacco use disorder Discharge Diagnosis: Acute pain of left shoulder Discharge Disposition: -Home or Self Care Attending Physician: Tru House MD Admitting Physician: Tru House MD Vital Signs Most recent to oldest [Reference Range]: 1 Blood Pressure [90-140/60-90 mmHg] 120/70 mmHg (08/14/16 1:51 PM) Problem List Condition Effective [...] Daily, # 135 tabs, 1 Refill(s), Pharmacy: [facility] # [id number], 1 1/2 tabs Oral Daily Start Date: 08/14/16 Status: Orderedlisinopril-hydrochlorothiazide 20 mg-12.5 mg oral tablet 1 tabs, Oral, Daily, # 90 tabs, 1 Refill(s), Pharmacy: [facility] #[id number] Start Date: 08/14/16 Stop Date: 02/10/17 Status: OrderedSymbicort 160 mcg-4.5 mcg/inh inhalation aerosol See Instructions, INHALE TWO PUFFS BY MOUTH TWICE A DAY, # 3 Each, 1 Refill(s), Pharmacy: [facility] #[id number] Start Date: 08/14/16 Status: OrderedtraMADol 50 mg oral tablet 50 mg 1 tabs, Oral, q12hr, as needed for pain, S. Diana, # 60 tabs, 0 Refill(s ) Start Date: 08/14/16 Status: OrderedVentolin HFA 90 mcg/inh inhalation aerosol 2 puffs, Inhalation, QID, as needed for wheezing, # 1 Each, 2 Refill(s), Pharmacy: [facility] #[id number], 2 puffs Inhalation QID,PRN:as needed for wheezing [...]
--- OUTSIDE RECORDS SUMMARY | 2017-06-12 14:59 | External Medical Summary | Referral Summary ---
:1950 Author Organization [facility] Address [address] [place] [address] Care Team Providers Name Role Phone Tru House Primary Care Physician Encounter VC Date(s): 05/01/16 - 05/01/16 [facility] [address] [place] [address] [place] Discharge Diagnosis: Hernia, inguinal, left Discharge Disposition: [...] Daily, # 135 tabs, 2 Refill(s), Pharmacy: [facility] # [id number], 1 1/2 tabs Oral Daily Start Date: 02/14/16 Status: Orderedlisinopril-hydrochlorothiazide 20 mg-12.5 mg oral tablet 1 tabs, Oral, Daily, # 90 tabs, 2 Refill(s), Pharmacy: [facility] #[id number] Start Date: 02/14/16 Stop Date: 11/10/16 Status: OrderedSymbicort 160 mcg-4.5 mcg/inh inhalation aerosol See Instructions, INHALE TWO PUFFS BY MOUTH TWICE A DAY, # 3 Each, 2 Refill(s), Pharmacy: [facility] #[id number] Start Date: 02/14/16 Status: OrderedVentolin HFA 90 mcg/inh inhalation aerosol 2 puffs, Inhalation, QID, as needed for wheezing, # 1 Each, 2 Refill(s), Pharmacy: [facility] #[id number], 2 puffs Inhalation QID,PRN:as needed for wheezing [...] Patient Education Author: Wilmer Pan MD Date: 05/01/16 Procedures Open Hernia Repair Open hernia repair is surgery to fix a hernia. A hernia occurs when an internal organ or tissue pushes out through a weak spot in the abdominal wall muscles. Hernias commonly occur in the groin and arou nd the navel. Most hernias tend to get [...] including vitamins, herbs, eye drops, creams, and [id number] medicines. Previous problems you or members of [...] Released: 03/31/2002 Document Revised: 07/26/2014 Document Reviewed: 05/17/2014 [facility] Patient Information 2016 [employer]. No follow up information was provided. Extracted from: Title: Darek Post Op Office Visit Note Author: Wilmer Pan MD Date: 05/01 Assessment/Plan 1.Hernia, inguinal, left Doing well postoperatively. They understand they are to do no lifting more than 20 pounds for4 weeks from surgery. The Patient understands if they have any problems wi th nausea or vomiting, their wounds, or any other concern they should call or return to the office. Ordered: Postoperative Est [id number]
--- OUTSIDE RECORDS SUMMARY | 2017-06-12 14:59 | External Medical Summary | Referral Summary ---
:1950 Author Organization [facility] Address [address] [place] [address] Care Team Providers Name Role Phone Tru House Primary Care Physician Encounter VC Date(s): 08/29/16 - 08/29/16 [facility] [address] [place] [address]- [place] Discharge Diagnosis: Left renal mass Discharge Disposition: 01-Home or Self Care Attending Physician: Micky Engel MD Admitting Physician: Micky Engel MD Vital Signs Most recent to oldest [Reference Range]: 1 Blood Pressure [90-140/60-90 mmHg] 120/80 mmHg (08/29/16 3:41 PM) Problem List Condition Effective [...] Daily, # 135 tabs, 1 Refill(s), Pharmacy: [facility] # [id number], 1 1/2 tabs Oral Daily Start Date: 08/14/16 Status: Orderedlisinopril-hydrochlorothiazide 20 mg-12.5 mg oral tablet 1 tabs, Oral, Daily, # 90 tabs, 1 Refill(s), Pharmacy: [facility] #[id number] Start Date: 08/14/16 Stop Date: 02/10/17 Status: OrderedMiscellaneous DME DME Item CT Guided Needle Biopsy Left Kidney DX: Left Kidney Mass (N28.89) Initiate all standing orders for CT Guided Needle Biopsy, See Instructions, # 1 Each, 0 Refill(s), Supply Start Date: 08/28/16 Status: OrderedSymbicort 160 mcg-4.5 mcg/inh inhalation aerosol See Instructions, INHALE TWO PUFFS BY MOUTH TWICE A DAY, # 3 Each, 1 Refill(s), Pharmacy: [facility] #[id number] Start Date: 08/14/16 Status: OrderedtraMADol 50 mg oral tablet 50 mg 1 tabs, Oral, q12hr, as needed for pain, S. Diana, # 60 tabs, 0 Refill(s ) Start Date: 08/14/16 Status: OrderedVentolin HFA 90 mcg/inh inhalation aerosol 2 puffs, Inhalation, QID, as needed for wheezing, # 1 Each, 2 Refill(s), Pharmacy: [facility] #[id number], 2 puffs Inhalation QID,PRN:as needed for wheezing Start Date: 02/14/16 Status: Ordered Results Chemistry Most recent to oldest [Reference Range]: 1 Sodium Lvl [135-144 mEq/L] 128 mEq/L *LOW* (08/29/16 4:31 PM) Potassium Lvl [3.5-5.2 mEq/L] 3.8 mEq/L (08/29/16 4:31 PM) Chloride [99-111 mEq/L] 91 mEq/L *LOW* (08/29/16 4:31 PM) CO2 [23-31 mEq/L] 25 mEq/L (08/29/16 4:31 PM) AGAP [3-20] 12 (08/29/16 4:31 PM) BUN [8-26 mg/dL] 14 mg/dL (08/29/16 4:31 PM) Glucose Lvl [70-99 mg/dL] 80 mg/dL (08/29/16 4:31 PM) Creatinine Lvl [0.72-1.25 mg/dL] 0.89 mg/dL (08/29/16 4:31 PM) eGFR [>60 mL/min] >60 mL/min 1 (08/29/16 4:31 PM) Calcium Lvl [8.9-10.5 mg/dL] 9.3 mg/dL (08/29/16 4:31 PM) Albumin Lvl [3.4-4.8 gm/dL] 4.3 gm/dL (08/29/16 4:31 PM) Total Protein [6.0-7.6 gm/dL] 6.4 gm/dL (08/29/16 4:31 PM) Globulin [1.8-4.0 gm/dL] 2.1 gm/dL (08/29/16 4:31 PM) ALT [0-55 U/L] 11 U/L (08/29/16 4:31 PM) AST [5-34 U/L] 17 U/L (08/29/16 4:31 PM) Alk Phos [40-150 U/L] 78 U/L (08/29/16 4:31 PM) Bili Total [0.2-1.2 mg/dL] 0.5 mg/dL (08/29/16 4:31 PM) 1Result Comment: Multiply eGFR [...]
--- OUTSIDE RECORDS SUMMARY | 2017-06-12 14:59 | External Medical Summary | Referral Summary ---
:1950 Author Organization [facility] [place] [address] Care Team Providers Name Role Phone Tru House Primary Care Physician Encounter VC Date(s): 08/22/16 - 08/22/16 [facility] [place] [address] Discharge Diagnosis: Benign essential hypertension Discharge Diagnosis: COPD (chronic obstructive pulmonary disease) Discharge Diagnosis: Hyponatremia Discharge Diagnosis: Neck pain Discharge Diagnosis: Renal mass Discharge Diagnosis: Lung mass Discharge Diagnosis: Tobacco use disorder Discharge Disposition: 01-Home or Self Care Attending Physician: Tru House MD Admitting Physician: Tru House MD Vital Signs Most recent to oldest [Reference Range]: 1 Blood Pressure [90-140/60-90 mmHg] 140/90 mmHg (08/22/16 2:08 PM) Problem List Condition Effective [...] Daily, # 135 tabs, 1 Refill(s), Pharmacy: [facility] # [id number], 1 1/2 tabs Oral Daily Start Date: 08/14/16 Status: Orderedlisinopril-hydrochlorothiazide 20 mg-12.5 mg oral tablet 1 tabs, Oral, Daily, # 90 tabs, 1 Refill(s), Pharmacy: [facility] #[id number] Start Date: 08/14/16 Stop Date: 02/10/17 Status: OrderedSymbicort 160 mcg-4.5 mcg/inh inhalation aerosol See Instructions, INHALE TWO PUFFS BY MOUTH TWICE A DAY, # 3 Each, 1 Refill(s), Pharmacy: [facility] #[id number] Start Date: 08/14/16 Status: OrderedtraMADol 50 mg oral tablet 50 mg 1 tabs, Oral, q12hr, as needed for pain, S. Diana, # 60 tabs, 0 Refill(s ) Start Date: 08/14/16 Status: OrderedVentolin HFA 90 mcg/inh inhalation aerosol 2 puffs, Inhalation, QID, as needed for wheezing, # 1 Each, 2 Refill(s), Pharmacy: [facility] #[id number], 2 puffs Inhalation QID,PRN:as needed for wheezing Start Date: 02/14/16 Status: Ordered Results Hematology Most recent to oldest [Reference Range]: 1 WBC [4.8-10.8 10*3/uL] 8.0 10*3/uL (08/22/16 2:35 PM) RBC [4.60-6.20] 4.65 (08/22/16 2:35 PM) Hgb [14.0-18.0 gm/dL] 13.9 gm/dL *LOW* (08/22/16 2:35 PM) Hct [42.0-52.0 %] 39.8 % *LOW* (08/22/16 2:35 PM) MCV [82.0-99.0 fL] 85.6 fL (08/22/16 2:35 PM) MCH [27.0-32.0 pg] 29.9 pg (08/22/16 2:35 PM) MCHC [32.0-36.0 gm/dL] 34.9 gm/dL (08/22/16 2:35 PM) RDW [11.5-14.5 %] 12.7 % (08/22/16 2:35 PM) Platelet [150-400 10*3/uL] 255 10*3/uL (08/22/16 2:35 PM) MPV [8.8-14.8 fL] 9.5 [...] Smoke. Air pollutants such as dust, household adult health clinical nurse specialist, hair sprays, aerosol sprays, paint fumes, strong [...] later. Symptoms include: Wheezing. Excessive nighttime or healthcare analyst coughing. Frequent or severe coughing with a [...] store, a double- layered or microfilter vacuum beauty parlor cleaner bag, or a vacuum beauty parlor cleaner with a HEPA filter. Replace carpet [...] Released: 10/05/2006 Document Revised: 10/26/2015 Document Reviewed: 05/04/2014 [employer] Patient Education 2016 [employer] No follow up information was provided. [...] appropriate entry and lab was ordered if ne eded in the cpoe/nursing orders, and follow up [...] appropriate entry and lab was ordered if neede d in the cpoe/nursing orders, and follow up [...]
--- OUTSIDE RECORDS SUMMARY | 2017-06-12 14:59 | External Medical Summary | Referral Summary ---
:1950 Author [facility] Address [address] [place] [address] [place] [address] Care Team Providers Name Role Phone Tru House Primary Care Physician Encounter VC Date(s): 06/08/15 - 06/08/15 [facility] [place] [address] [place] Discharge Disposition: 01-Home or Self Care Attending Physician: Tru House MD Admitting Physician: Tru House MD Vital Signs Most recent to oldest [Reference Range]: 1 Blood Pressure [90-140/60-90 mmHg] 140/100 mmHg (06/08/15 10:00 AM) Problem List Condition Effective [...] Daily, # 135 tabs, 1 Refill(s), Pharmacy: [facility] # [id number], 1 1/2 tabs Oral Daily Start Date: 06/08/15 Status: Orderedlisinopril-hydrochlorothiazide 20 mg-12.5 mg oral tablet 1 tabs, Oral, Daily, # 90 tabs, 1 Refill(s), Pharmacy: [facility] #[id number] Start Date: 06/08/15 Stop Date: 12/05/15 Status: OrderedSymbicort 160 mcg-4.5 mcg/inh inhalation aerosol 2 puffs, Inhalation, BID, # 3 Each, 1 Refill(s), Pharmacy: [facility] # [id number] Start Date: 06/08/15 Stop Date: 12/05/15 Status: OrderedVentolin HFA 90 mcg/inh inhalation aerosol 2 puffs, Inhalation, QID, as needed for wheezing, # 1 Each, 2 Refill(s), Pharmacy: [facility] #[id number], 2 puffs Inhalation QID,PRN:as needed for wheezing [...] with your knees out straight. If partial sit -ups are difficult, simply do the above but [...] Released: 11/12/2005 Document Revised: 12/27/2012 Document Reviewed: 08/05/2012 [facility] [place] Patient Information 2015 [employer]. This information is not intended to replace [...] stable at home and is not having an y significant or related problems. There has been no chest pain, chest pressure , soa/fallon. COPD (chronic obstructive pulmonary disease) This issue is stable and appropriate refills, lab, and f/u have been discussed. History of alcoholism This issue is stable and appropriate refills, lab, and f/u have been discussed. Hyponatremia Consider lab when willing. Possible side effect of alcohol and /or bp meds. Tobacco use disorder Smoking Cessatin was discussed. The patient is welcome to f/u for therapy or medication for smoking cessation at any time that they are willing to quit. Vision changes To Dr. Santiago for evaluation. Orders: albuterol, 2 puffs, Inhalation, QID, as needed for wheezing, # 1 Each , 2 Refill(s), Pharmacy: [facility] #[id number], 2 puffs Inhalation QID,PRN: as needed for wheezing budesonide-formoterol, 2 puffs, Inhalation, BID, # 3 Each, 1 Refill(s), Pharmacy: [facility] #[id number] lisinopril-hydrochlorothiazide, 1 tabs, Oral, Daily, # 90 tabs, 1 Refill(s), Pharmacy: [facility] #[id number] nebivolol, 1 1/2 tabs, Oral, Daily, # 135 tabs, 1 Refill(s), Pharmacy: [facility] #[id number], 1 1/2 tabs Oral Daily
--- OUTSIDE RECORDS SUMMARY | 2017-06-12 14:59 | External Medical Summary | Referral Summary ---
:1950 Author Organization [facility] Address [address] [place] [address] Care Team Providers Name Role Phone Tru House Primary Care Physician Encounter VC Date(s): 08/27/16 - 08/27/16 [facility] [address] [place] [address]- [place] Discharge Diagnosis: Left renal mass Discharge Diagnosis: Chronic obstructive pulmonary disease (COPD) Discharge Diagnosis: Mass of upper lobe of left lung Discharge Diagnosis: Nicotine dependence, cigarettes, with unspecified nicotine- induced disorders Discharge Disposition: 01-Home or Self Care Attending Physician: Bhavesh Tipton MD Admitting Physician: Bhavesh Tipton MD Referring Physician: Tur House MD Vital Signs Most recent to oldest [Reference Range]: 1 Peripheral Pulse Rate [60-100 bpm] 64 bpm (08/27/16 2:31 PM) Respiratory Rate [14-20 br/min] 18 br/min (08/27/16 2:31 PM) Blood Pressure [90-140/60-90 mmHg] 140/90 mmHg (08/27/16 2:31 PM) SpO2 97 % (08/27/16 [...] Daily, # 135 tabs, 1 Refill(s), Pharm[facility]: [facility] # [id number], 1 1/2 tabs Oral Daily Start Date: 08/14/16 Status: Orderedlisinopril-hydrochlorothiazide 20 mg-12.5 mg oral tablet 1 tabs, Oral, Daily, # 90 tabs, 1 Refill(s), Pharmacy: [facility] #[id number] Start Date: 08/14/16 Stop Date: 02/10/17 Status: OrderedSymbicort 160 mcg-4.5 mcg/inh inhalation aerosol See Instructions, INHALE TWO PUFFS BY MOUTH TWICE A DAY, # 3 Each, 1 Refill(s), Pharmacy: [facility] #[id number] Start Date: 08/14/16 Status: OrderedtraMADol 50 mg oral tablet 50 mg 1 tabs, Oral, q12hr, as needed for pain, S. Diana, # 60 tabs, 0 Refill(s ) Start Date: 08/14/16 Status: OrderedVentolin HFA 90 mcg/inh inhalation aerosol 2 puffs, Inhalation, QID, as needed for wheezing, # 1 Each, 2 Refill(s), Pharmacy: [facility] #[id number], 2 puffs Inhalation QID,PRN:as needed for wheezing [...] cancer withmetastasis to the kidneys or2 separateprimary malignanc ies. The best approach would be to start by biopsyingthe most accessible lesionwhich would be thekidney massassumingthis is one process. Patient will be scheduled withinterventional radi ology for CT-guided biopsy of the left kidney mass. Based on results we will decideonthe need for further biopsying of the lungmass. Patient also plannedfor follow-up with urology. Patienthas COPD and has been on inhalers for the past 2 years. PFTtoday showed moderate obstruction, hyperinflation andnoted reduction in the diffusion capacity. ContinueSymbicort and albut camelia for now. Symptoms seem to be controlled on currentregimen. We will discuss smoking cessation on his next visit.
[2017-06-12] MEDS ORDERED: ALBUTEROL/IPRATROPIUM 2.5mg-0.5mg/3ml NEB AEROSOL ONE (15:13)
--- NOTE | 2017-06-12 15:20 | Emergency Department Report ---
SOB HPI - General Chief Complaint: Shortness of Breath/Dyspnea Stated Complaint: SOB Time Seen by Provider: 06/12/17 14:36 Source: patient, old records reviewed, other (PCM discussion) Mode of arrival: ambulatory Limitations: no limitations - History of Present Illness 67yo man presents to the ER for evaluation of dyspnea. Pt has had progressive dyspnea for the last week. He went to see his PCM today for a prescription for O2. PCM did not feel comfortable just writing for O2 without evaluating pt for underlying cause. So, pt was referred to the ER for urgent evaluation. Pt arrived to the ER ashen, dyspneic at base, and with an SaO2 of 84% on RA. After applying O2 via NC at 2L, pts SaO2 shot up to 100%. 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 He sees Dr. Ospina for his oncology; last visit was within the last [address] House is PCM. MD Complaint: shortness of breath Onset (ago): day(s) (7) Context: other Severity: severe Consistency/Duration: constant Relieving factors: oxygen Exacerbating factors: exertion, movement Known history of: COPD Associated symptoms: wheezing Treatment prior to arrival: none - Related Data Home oxygen amount: none Home Medications Medication Instructions Recorded Confirmed Albuterol Sulfate [Ventolin Hfa] 2 puff ORAL INH QID PRN #0 inhaler 01/22/17 Lisinopril/Hydrochlorothiazide 1 tab PO DAILY #30 01/22/17 06/12/17 [Lisinopril-Hctz 20-12.5 mg Tab] Nebivolol [Bystolic] 1.5 tab PO DAILY 04/24/17 06/12/17 Previous Rx's Medication Instructions Recorded levetiracetam 500 mg tablet 500 mg PO BID #60 tab 05/11/17 Allergies Allergy/AdvReac Type Severity Reaction Status Date / Time No Known Allergies Allergy Verified 06/12/17 14:53 Review of Systems All systems: reviewed and negative except as stated Respiratory: Reports: as per HPI, dyspnea, wheezes PFSH Patient Stated Medical History Macular Degeneration Yes Hypertension Yes: HX Asthma Yes Chronic Obstructive Pulmonary Yes Disease (COPD) Other Respiratory Yes: LUNG CANCER Other GI Yes: hernia surgery 2016 Hx Renal Disease Yes Other Yes: Kidney (Left) mass Other Infectious Yes: Sepsis of unknown organism Anesthesia Reactions Yes Chemotherapy Yes: IMMUNOTHERAPY AND RADIATION Depression Yes Clinic Medical History Brain cancer (Acute Medical) COPD (chronic obstructive pulmonary disease) (Acute Medical) HTN (hypertension) (Acute Medical) Kidney cancer, primary, with metastasis from kidney to other site (Acute Medical ) Lung cancer (Acute Medical) Macular degeneration (Acute Medical) Neuropathy (Acute Medical) Medical History Updates: adenocarcinoma of lung dx approximately 06/03, currently being treated with chemo (held the last 3 weeks). metastatic disease to his right kidney. HTN. COPD. macular degeneration Surgical History: herniorraphy. Appendectomy Family History: Family History Mother Pancreatic cancer - Social History Smoking status: Former smoker Physical Exam - Limitations Limitations: no limitations - General General appearance: alert, in no apparent distress - Normal Exams: Head:: Normocephalic without trauma Eyes:: Pupils are PERRLA w/ EOMI, No scleral icterus, irritation, or foreign bodies noted ENMT:: No facial trauma, nasal exudates, pharyngeal erythema, or exudates are noted Neck:: Full range of motion, without adenopathy Abdomen:: Bowel sounds positive, soft, non-tender, non-distended Lymphatic:: No lymphadenopathy Musculoskeletal:: No tenderness, or deformity noted Integumentary:: No rashes, hives, or bruising noted Neurological:: Patient is alert, and oriented Psychiatric:: Patient exhibits, appropriate attention - Chest Chest inspection: Present: normal inspection, symmetric chest wall rise. Absent : tenderness, rash - Respiratory Respiratory exam: Present: wheezes, accessory muscle use, prolonged expiratory phase, other (Globally decreased air movement). Absent: crackles - Cardiovascular Cardiovascular exam: Present: regular rate, normal rhythm, normal heart sounds Course Course Narrative: Pt placed on supplemental O2 with improvement in sx and color. Duoneb improved pts aeration, but pt still required supplemental O2. - Consultations Consultation #1: Hospitalist: Will accept pt for treatment of acute hypoxic resp failure. Time: 16:22 Vital Signs Temperature 97.6 F 06/12/17 14:35 Pulse Rate 90 06/12/17 14:35 Respiratory Rate 20 06/12/17 14:35 Blood Pressure 93/60 06/12/17 14:35 Pulse Oximetry 84 L 06/12/17 14:35 Temperature 97.6 F 06/12/17 14:35 Pulse Rate 90 06/12/17 14:35 Respiratory Rate 12 06/12/17 15:33 Blood Pressure 93/60 06/12/17 14:35 Pulse Oximetry 84 L 06/12/17 14:35 Shortness of Breath/Dyspnea - Differential Diagnosis Likely: acute exacerbation of chronic obstructive airways disease, congestive heart failure, community acquired pneumonia, pulmonary embolism - Medical Records Attestation: I reviewed the patient's medical records. - Lab Data Attestation: I reviewed the patient's lab results. Result diagrams: 06/12/17 15:31 06/12/17 15:31 Lab Results 06/12/17 06/12/17 06/12/17 Range/Units 15:31 15:31 15:31 WBC 3.3 L (4.5-11.0) T/MM3 RBC 3.01 L (4.50-5.90) M/MM3 Hgb 9.1 L (13.5-17.5) GM/DL Hct 25.9 L (41-53) % MCV 86.0 (80-100) UM3 MCH 30.2 (26-34) UUG MCHC 35.1 (31-37) GM/DL RDW Std Deviation 54.1 H (36.9-50.2) FL Plt Count 120 L (130-400) T/MM3 MPV 8.2 L (9.4-12.4) UM3 Immature Gran % (Auto) 0.6 H (0.0-0.5) % Neut % (Auto) 72.0 H (33-66) % Lymph % (Auto) 22.0 L (23-45) % [place] % (Auto) 4.5 (0-9.0) % Eos % (Auto) 0.6 (0-4) % Baso % (Auto) 0.3 (0-2) % Neut # 2.4 (1.8-7.7) T/MM3 Lymph # 0.7 L (1-4.8) T/MM3 [place] # 0.2 (0-0.8) T/MM3 Eos # 0.0 (0-0.5) T/MM3 Baso # 0.0 (0-0.2) T/MM3 Abs Immat Gran (auto) 0.02 (0.00-0.03) T/MM3 VBG pH 7.480 H (7.31-7.41) VBG pCO2 36 L (40-52) MMHG VBG pO2 45 (40-52) MMHG VBG HCO3 27 H (22-26) MEQ/L VBG Total CO2 27.9 MEQ/L VBG O2 Saturation 84.0 % VBG Base Excess 3.3 H (-2.0-2.0) MMOL/L O2 Delivery Method Room air Turbidity < 20 (0-20) Sodium 127 L (134-144) MEQ/L Potassium 3.0 L (3.6-5) MEQ/L Chloride 94 L (98-107) MEQ/L Carbon Dioxide 27 (22-30) MEQ/L Anion Gap 6 (5-15) MEQ/L BUN 23.0 H (9-20) MG/DL Creatinine 0.9 (0.8-1.5) MG/DL GFR Calculation 84 BUN/Creatinine Ratio 26 (6-26) RATIO Glucose 78 (75-110) MG/DL Calculated Osmolality 248 L (261-280) MOSM/KG Calcium 8.1 L (8.4-10.2) MG/DL Icterus Index < 2 (0-7) Creatine Kinase (55-170) U/L Troponin I < 0.012 (0-0.12) ng/ml B-Natriuretic Peptide 512 H (0-175) pg/mL Specimen Hemolysis < 15 (0-25) // Range/Units 15:31 WBC (4.5-11.0) T/MM3 RBC (4.50-5.90) M/MM3 Hgb (13.5-17.5) GM/DL Hct (41-53) % MCV (80-100) UM3 MCH (26-34) UUG MCHC (31-37) GM/DL RDW Std Deviation (36.9-50.2) FL Plt Count (130-400) T/MM3 MPV (9.4-12.4) UM3 Immature Gran % (Auto) (0.0-0.5) % Neut % (Auto) (33-66) % Lymph % (Auto) (23-45) % [place] % (Auto) (0-9.0) % Eos % (Auto) (0-4) % Baso % (Auto) (0-2) % Neut # (1.8-7.7) T/MM3 Lymph # (1-4.8) T/MM3 [place] # (0-0.8) T/MM3 Eos # (0-0.5) T/MM3 Baso # (0-0.2) T/MM3 Abs Immat Gran (auto) (0.00-0.03) T/MM3 VBG pH (7.31-7.41) VBG pCO2 (40-52) MMHG VBG pO2 (40-52) MMHG VBG HCO3 (22-26) MEQ/L VBG Total CO2 MEQ/L VBG O2 Saturation % VBG Base Excess (-2.0-2.0) MMOL/L O2 Delivery Method Turbidity (0-20) Sodium (134-144) MEQ/L Potassium (3.6-5) MEQ/L Chloride (98-107) MEQ/L Carbon Dioxide (22-30) MEQ/L Anion Gap (5-15) MEQ/L BUN (9-20) MG/DL Creatinine (0.8-1.5) MG/DL GFR Calculation BUN/Creatinine Ratio (6-26) RATIO Glucose (75-110) MG/DL Calculated Osmolality (261-280) MOSM/KG Calcium (8.4-10.2) MG/DL Icterus Index (0-7) Creatine Kinase 23 L (55-170) U/L Troponin I (0-0.12) ng/ml B-Natriuretic Peptide (0-175) pg/mL Specimen Hemolysis (0-25) - Radiology Data Attestation: I reviewed the patient's radiology results. CXR: Impression: Mild pulmonary vascular congestion without focal pneumonia. - EKG Data EKG #1 EKG attestation: Yes: I reviewed and interpreted this EKG. EKG shows normal: sinus rhythm, axis, intervals, QRS complexes, ST-T waves Rate: normal Disposition Clinical Impression: Acute respiratory failure with hypoxia [facility]: [facility] Prescriptions: No Action Lisinopril/Hydrochlorothiazide [Lisinopril-Hctz 20-12.5 mg Tab] 1 tab PO DAILY #30 Albuterol Sulfate [Ventolin Hfa] 2 puff ORAL INH QID PRN #0 inhaler PRN Reason: SHORTNESS OF AIR/WHEEZING Nebivolol [Bystolic] 1.5 tab PO DAILY levetiracetam 500 mg tablet 500 mg PO BID #60 tab Referrals: Luinstra,Tru W, MD [Family Provider] - Time of Disposition: 16:27 - Seen By: physician
--- NOTE | 2017-06-12 16:10 | XRay Report ---
INDICATION: Dyspnea PROCEDURE: CHEST 2-VIEWS UPRIGHT (PA & LAT) Encounter: Initial COMPARISON: April 24, 2017 FINDINGS: Bilateral lung masses are better seen on prior cross-sectional imaging studies. No new acute consolidative pneumonia. No pneumothorax. Trace effusions. The heart size and mediastinal contours are stable. And pulmonary vascular markings are subtly more prominent, particularly at the left costophrenic angle. Right IJ port catheter. Bony structures are grossly stable. Impression: Mild pulmonary vascular congestion without focal pneumonia. .
--- NOTE | 2017-06-12 17:16 | History & Physical Report ---
<Joycelyn Bill V - Last Filed: 06/12/17 17:07> History of Present Illness Date: 06/12/17 Chief complaint: respiratory failure with hypoxia HPI: Mr Lopez is a pleasant 67 yr old gentleman who is well known to the hospitalist services . He was recently admitted on April 25 through April 27 under the hospitalist services. He has a known history of stage IV lung cancer with metastatic disease disease to the brain, along with probable renal cell carcinoma. He has been under the care of Dr. Ospina and has been undergoing radiation treatment. No chemo for 3 weeks. He is following in the outpatient setting with Dr. 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 He recommended continuing on Keppra 500 milligrams twice a day at his last apt on may 11. Patient reports that he has had increased shortness of breath for approximately one week. Today it got significantly worse which prompted him to see his primary care provider, Dr. House. He was hopeful for a prescription for oxygen and to be able to be discharged home, however, his primary care provider felt that he needed more acute evaluation. Patient was sent to the emergency room where he was evaluated. He was found to be pancytopenic with WBC 3.3, Hgb 9.1, HCT 25.9, Plt 120. Sodium was low at 127, potassium 3.0, BUN 23, creatinine 0.9, troponin negative, proBNP 512. ABG is obtained showing pH of 7.80, pCO2 36, pO2 45, bicarbonate 27. Room air saturations 84%. Patient is requiring 1.5L of oxygen by nasal cannula to maintain adequate saturations. Given this newfound hypoxia, the hospitalist services were contacted and accepted patient for inpatient admission for further evaluation and treatment. Is expected that his stay will be greater than 2 overnights. 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 metastatic disease to his right kidney. HTN. COPD. macular degeneration Surgical History: herniorraphy-2016. Appendectomy. PowerPort placement- 01/2017 Family History: Family History Mother Pancreatic cancer - Social History Smoking status: Former smoker Alcohol intake frequency: does not drink Social history: Primary care provider, Dr. House Oncologist Dr. Ospina Neurologist Dr. Booker Medications Home Medications Medication Instructions Recorded Confirmed Type Albuterol Sulfate [Ventolin Hfa] 2 puff ORAL INH QID PRN #0 inhaler 01/22/17 History Lisinopril/Hydrochlorothiazide 1 tab PO DAILY #30 01/22/17 06/12/17 History [Lisinopril-Hctz 20-12.5 mg Tab] Nebivolol [Bystolic] 1.5 tab PO DAILY 04/24/17 06/12/17 History Allergies Allergy/AdvReac Type Severity Reaction Status Date / Time No Known Allergies Allergy Verified 06/12/17 14:53 Exam Vital Signs: Temperature 97.6 F 06/12/17 14:35 Pulse Rate 90 06/12/17 14:35 Respiratory Rate 12 06/12/17 15:33 Blood Pressure 93/60 06/12/17 14:35 Pulse Oximetry 84 L 06/12/17 14:35 - Constitutional Present: no acute distress, well nourished, well developed - Routine HEENT Exam Eye: Present: EOMI ENT: Present: mucous membranes moist, dentition normal - Routine Respiratory Exam Present: diminished air movement (bilaterally). Absent: wheezes - Routine Cardiovascular Exam Present: RRR, S1, S2. Absent: murmur - Routine Abdominal Exam Present: soft, normoactive bowel sounds, non distended. Absent: tenderness - Routine Extremities Exam Present: normal capillary refill - Routine Back/Spine/Pelvis Exam Back/Spine: Present: full ROM - Routine Skin Exam Present: intact, dry, warm - Routine Neurological Exam Present: alert, oriented X3, CN II-XII intact, moving all extremities - Routine Psychiatric Exam Present: normal affect, normal thought process Results - Labs CBC & Chem 7: 06/12/17 15:31 06/12/17 15:31 Assessment and Plan (1) Adenocarcinoma of lung, stage 4 Current visit: No Status: Chronic (2) Acute respiratory failure with hypoxia Current visit: Yes Status: Acute DVT Prophylaxis: Lovenox Resuscitation Status: Do Not Resuscitate Assessment and Plan: Impression Acute respiratory failure with hypoxia Pancytopenia Hyponatremia Hypokalemia Stage IV adenocarcinoma lung cancer Kidney cancer and metastatic brain cancer Hypertension COPD macular degeneration Neuropathy Plan Admit patient to inpatient status under care of Dr. Garcia for acute respiratory failure with hypoxia, pancytopenia Patient continues to require oxygen to maintain adequate saturations. Scheduled DuoNeb and Pulmicort and history COPD Place patient on cardiac telemetry given electrolyte abnormalities. Given patient's recent decreased appetite. Will order ensure for nutrition supplementation Normal saline with KCL 20meq at 100 ML per hour for gentle hydration and treatment of hyponatremia. Monitor for evidence of fluid overload. Given PO potassium 40meq now and 20meq BID(starting tomorrow) until hypokalemia has resolved Continue on patient's home medication of Keppra twice a day for seizure prophylaxis. Continue on Bystolic and Prinzide for blood pressure management. Lovenox SQ daily for DVT prophylaxis Continue to monitor blood counts and electrolytes routinely follow pancytopenia and electrolyte abnormalities. Patient does request to be a do not resuscitate and this order is written. Will discuss further orders and plan of care with attending, Dr. Garcia. At time of discharge medical care will return to his his primary care provider, Dr. House Sepsis Assessment - Evaluation Sepsis screening result: No Definite Risk Hospital Course Summary Disclaimer: The visit summary below is not to be considered part of the above Progress Note. Hospital Course: 06/12/17 -initial admission Impression Acute respiratory failure with hypoxia Pancytopenia Hyponatremia Hypokalemia Stage IV adenocarcinoma lung cancer Kidney cancer and metastatic brain cancer Hypertension COPD macular degeneration Neuropathy Plan Admit patient to inpatient status under care of Dr. Garcia for acute respiratory failure with hypoxia, pancytopenia Patient continues to require oxygen to maintain adequate saturations. Scheduled DuoNeb and Pulmicort and history COPD Place patient on cardiac telemetry given electrolyte abnormalities. Given patient's recent decreased appetite. Will order ensure for nutrition supplementation Normal saline with KCL 20meq at 100 ML per hour for gentle hydration and treatment of hyponatremia. Monitor for evidence of fluid overload. Given PO potassium 40meq now and 20meq BID(starting tomorrow) until hypokalemia has resolved Continue on patient's home medication of Keppra twice a day for seizure prophylaxis. Continue on Bystolic and Prinzide for blood pressure management. Lovenox SQ daily for DVT prophylaxis Continue to monitor blood counts and electrolytes routinely follow pancytopenia and electrolyte abnormalities. Patient does request to be a do not resuscitate and this order is written. Will discuss further orders and plan of care with attending, Dr. Garcia. At time of discharge medical care will return to his his primary care provider, Dr. House <Teresita Garcia - Last Filed: 06/12/17 20:02> History of Present Illness Date: 06/12/17 [facility] Patient Stated Medical History Macular Degeneration Yes Hypertension Yes: HX Asthma Yes Chronic Obstructive Pulmonary Yes Disease (COPD) Other Respiratory Yes: LUNG CANCER Other GI Yes: hernia surgery 2016 Hx Renal Disease Yes Other Yes: Kidney (Left) mass Other Infectious Yes: Sepsis of unknown organism Chemotherapy Yes: IMMUNOTHERAPY AND RADIATION Clinic Medical History Brain cancer (Acute Medical) COPD (chronic obstructive pulmonary disease) (Acute Medical) HTN (hypertension) (Acute Medical) Kidney cancer, primary, with metastasis from kidney to other site (Acute Medical ) Lung cancer (Acute Medical) Macular degeneration (Acute Medical) Neuropathy (Acute Medical) Family History: Family History Mother Pancreatic cancer Exam Vital Signs: Temperature 97.6 F 06/12/17 14:35 Pulse Rate 79 06/12/17 17:00 Respiratory Rate 27 H 06/12/17 17:00 Blood Pressure 114/82 06/12/17 17:00 Pulse Oximetry 97 06/12/17 17:00 Oxygen Delivery Method Nasal Cannula Oxygen Flow Rate 1.5 Height/Weight/BMI: Height 1.83 m Weight 72.5 kg Body Mass Index 21.7 Results - Labs CBC & Chem 7: 06/12/17 15:31 06/12/17 15:31 Assessment and Plan (1) Adenocarcinoma of lung, stage 4 Current visit: No Status: Chronic (2) Acute respiratory failure with hypoxia Current visit: Yes Status: Acute Assessment and Plan: I have independently evaluated and examined this patient. I reviewed the chart, the patient's history, and the [employer]/PA's documented findings as above. We discussed and formulated the assessment and plan as above with additions as below: Mr. Lopez is seen with his who provided most of the history. He is currently on Opdivo therapy every other week for combined lung/renal malignancies after CyberKnife therapy for the brain metastasis. He tapered off steroids about a week ago. His describes generalized deterioration in the past week to 10 days with decreased activities, increased pain in his upper back , isolating himself, and decreased appetite. Patient reports he's developed numbness along the medial aspect (fifth finger surface) of his arms bilaterally extending from the fingers to the elbow. He has not noticed any weakness. For the past couple of days blood pressures have been low with blood pressure 70/? When he reported for treatment at the cancer center on Thursday at which time he was given 2 L of IV fluids. Earlier today his systolic blood pressure was less than 100 which contributed to decision to send him to the emergency room for further treatment. Patient denies decreased urine output. He describes both rest and exertional dyspnea but no sputum production or fever. Pain that he previously described in his upper back has largely resolved. On presentation to the emergency room the patient was reported to be in respiratory distress, ashen, and oxygen was 84% on room air. On examination the patient is alert and moderately cushingoid. Respirations are nonlabored with good airflow, no wheezing is present nor rhonchi. Abdomen is benign and cardiac rhythm regular. There is no tenderness on palpation over the cervical/thoracic/lumbar spine, nor tenderness on palpation along the paraspinal muscles in the mid and upper back or patient describes prior pain. Sensation is grossly intact in the upper extremities, upper extremity power is 5 /5 except the left deltoid and left triceps which are 4/5. Chest x-ray reviewed by myself demonstrating no acute pathology, port present on the right. Minor vascular congestion reported by radiology who additionally describe better visualization of pulmonary masses by CT. EKG sinus rhythm with slow R-wave progression consistent with old anteroseptal SD but no acute changes. In addition to above diagnoses please add: Hypotension Orthostatic vital signs to be obtained, continue IV fluids as noted above. Hold Prinzide as it is likely contributing to hyponatremia, hypokalemia, and hypertension. Will hydrate overnight and reassess need to image chest by CTA to exclude PE- received therapeutic Lovenox in the emergency room and will not re-dose at this time due to risk of hemoptysis. Patient's primary concern is arranging home oxygen and pursuing remainder of workup as an outpatient. Will discuss with case management in the morning. Imaging reviewed, outpatient records reviewed, discussed with Dr. Proctor, provide supplemental history. Hospital Course Summary Disclaimer: The visit summary below is not to be considered part of the above Progress Note.
[2017-06-12] MEDS: NS with KCL 20 mEq 20 MEQ/1,000 ML IV.SOLN IV SCH (18:20)
[2017-06-12 19:40] VITALS: BMI 21.7
[2017-06-12] MEDS: ALBUTEROL/IPRATROPIUM 2.5mg-0.5mg/3ml NEB AEROSOL SCH (21:10)
[2017-06-12] MEDS: BUDESONIDE INH.SOLN 0.5mg/2ml NEB AEROSOL SCH ×2 (21:10→21:15)
[2017-06-12] MEDS: LEVETIRACETAM 500 MG TABLET PO SCH (22:34)
[2017-06-13] MEDS: NS with KCL 20 mEq 20 MEQ/1,000 ML IV.SOLN IV SCH ×2 (04:24→16:19)
[2017-06-13] MEDS: SALINE FLUSH 10ml SYRINGE IVF PRN (04:26)
[2017-06-13] MEDS: BUDESONIDE INH.SOLN 0.5mg/2ml NEB AEROSOL SCH ×2 (08:07→20:20)
[2017-06-13] MEDS: ALBUTEROL/IPRATROPIUM 2.5mg-0.5mg/3ml NEB AEROSOL SCH (08:07)
[2017-06-13] MEDS ORDERED: ENOXAPARIN 80 MG/0.8 ML INJECTION SQ SCH ×2 (09:00→14:16)
[2017-06-13] MEDS ORDERED: LISINOPRIL/HCTZ 20/12.5 MG TABLET PO SCH (09:00)
[2017-06-13] MEDS: LEVETIRACETAM 500 MG TABLET PO SCH ×2 (09:19→20:03)
[2017-06-13] MEDS ORDERED: IOHEXOL 350mg/ml 75ml INJECTION ONE ×2 (10:50→10:52)
[2017-06-13] MEDS ORDERED: NS 100 ML ONE (10:51)
[2017-06-13] MEDS ORDERED: SALINE FLUSH 10ml SYRINGE ONE ×2 (10:51→10:52)
--- NOTE | 2017-06-13 14:12 | Progress Note ---
<Leela Watson - Last Filed: 06/13/17 14:09> Subjective: Baltazar is seen today in follow up. He and are present during interview. Pt. denies any SOA or pain. He has a very flat affect, irritable, and makes poor eye contact. I cannot elicit much information during my interview. Chart reviewed for collateral information. Objective Vital signs: Temperature 97.7 F 06/13/17 09:17 Pulse Rate 106 H 06/13/17 09:17 Respiratory Rate 18 06/13/17 11:54 Blood Pressure 134/96 H 06/13/17 10:57 Pulse Oximetry 93 06/13/17 11:54 Oxygen Delivery Method Room Air Oxygen Flow Rate 0.5 Height/Weight/BMI: Height 1.83 m Weight 74.1 kg Body Mass Index 21.7 - Constitutional Present: no acute distress, obese, other (Irritable. [place] faced. Alert. ) - Routine HEENT Exam Head: Present: normocephalic, atraumatic, cushingoid faces Eye: Present: EOMI, PERRL ENT: Present: mucous membranes moist - Routine Respiratory Exam Present: decreased breath sounds, CTA bilaterally. Absent: accessory muscle use , dyspnea, rales, rhonchi, wheezes, crackles - Routine Cardiovascular Exam Present: RRR, S1, S2, no murmur - Routine Abdominal Exam Present: soft, non distended, non tender - Routine Extremities Exam Present: no edema, non tender - Routine Musculoskeletal Exam Musculoskeletal: Present: no clubbing or cyanosis, no tenderness - Routine Skin Exam Present: intact, dry, warm Comments: Skin tone is tanned. - Routine Neurological Exam Present: alert, moving all extremities - Routine Psychiatric Exam Present: cooperative Comments: See HPI Results - Labs CBC & Chem 7: 06/13/17 03:57 06/13/17 03:57 - Imaging and Cardiology CT scan - abdomen Status: image reviewed by me, pending Additional comments: Lung mass. No PE per preliminary exam. Assessment and Plan (1) Adenocarcinoma of lung, stage 4 Current visit: No Status: Chronic (2) Acute respiratory failure with hypoxia Current visit: Yes Status: Acute DVT Prophylaxis: Lovenox Resuscitation Status: Do Not Resuscitate Assessment and Plan: Impression Acute respiratory failure with hypoxia Pancytopenia Hyponatremia Hypokalemia Stage IV adenocarcinoma lung cancer Kidney cancer and metastatic brain cancer Sz. Prophylaxis due to brain mass. Hypertension COPD macular degeneration Neuropathy Plan: 06/13/17- Slow improvement. He is currently tolerating RA. Will assess overnoc oximetry on RA today, and ambulatory O2 tomorrow in preparation for discharge. I suspect that given his lung cancer, he will need O2 at home during times of SOA, hypoxia. Ongoing pancytopenia, bandemia today, but s/p IV solumedrol yesterday. Afebrile, and does not appear acutely infected. No evidence of PE on CTA- decrease Lovenox to 40mg. Hyponatremia, hypokalemia is improving. Continue IVF for today, decrease KCl replacement to daily. Repeat labs in AM. Possible DC in 1-2 days? Sepsis Assessment - Evaluation Sepsis screening result: No Definite Risk Hospital Course Summary Disclaimer: The visit summary below is not to be considered part of the above Progress Note. Hospital Course: 06/12/17 -initial admission Impression Acute respiratory failure with hypoxia Pancytopenia Hyponatremia Hypokalemia Stage IV adenocarcinoma lung cancer Kidney cancer and metastatic brain cancer Hypertension COPD macular degeneration Neuropathy Plan Admit patient to inpatient status under care of Dr. Garcia for acute respiratory failure with hypoxia, pancytopenia Patient continues to require oxygen to maintain adequate saturations. Scheduled DuoNeb and Pulmicort and history COPD Place patient on cardiac telemetry given electrolyte abnormalities. Given patient's recent decreased appetite. Will order ensure for nutrition supplementation Normal saline with KCL 20meq at 100 ML per hour for gentle hydration and treatment of hyponatremia. Monitor for evidence of fluid overload. Given PO potassium 40meq now and 20meq BID(starting tomorrow) until hypokalemia has resolved Continue on patient's home medication of Keppra twice a day for seizure prophylaxis. Continue on Bystolic and Prinzide for blood pressure management. Lovenox SQ daily for DVT prophylaxis Continue to monitor blood counts and electrolytes routinely follow pancytopenia and electrolyte abnormalities. Patient does request to be a do not resuscitate and this order is written. Will discuss further orders and plan of care with attending, Dr. Garcia. At time of discharge medical care will return to his his primary care provider, Dr. House 06/13/17 14:20 Slow improvement. He is currently tolerating RA. Will assess overnoc oximetry on RA today, and ambulatory O2 tomorrow in preparation for discharge. I suspect that given his lung cancer, he will need O2 at home during times of SOA, hypoxia. Ongoing pancytopenia, bandemia today, but s/p IV solumedrol yesterday. Afebrile, and does not appear acutely infected. No evidence of PE on CTA- decrease Lovenox to 40mg. Hyponatremia, hypokalemia is improving. Continue IVF for today, decrease KCl replacement to daily. Repeat labs in AM. Possible DC in 1-2 days? <Teresita Garcia - Last Filed: 06/13/17 19:52> Objective Vital signs: Temperature 98 F 06/13/17 16:25 Pulse Rate 102 H 06/13/17 16:25 Respiratory Rate 18 06/13/17 16:25 Blood Pressure 114/79 06/13/17 16:25 Pulse Oximetry 91 06/13/17 16:25 Oxygen Delivery Method Room Air Oxygen Flow Rate 0.5 Height/Weight/BMI: Height 1.83 m Weight 74.1 kg Body Mass Index 21.7 Results - Labs CBC & Chem 7: 06/13/17 03:57 06/13/17 03:57 Assessment and Plan (1) Adenocarcinoma of lung, stage 4 Current visit: No Status: Chronic (2) Acute respiratory failure with hypoxia Current visit: Yes Status: Acute Assessment and Plan: I have independently evaluated and examined this patient. I reviewed the chart, the patient's history, and the UNDERCOLLAR BASTER/PA's documented findings as above. We discussed and formulated the assessment and plan as above with additions as below: Mr. Lopez was seen with his at bedside. Ambulatory oximetry this morning was obtained on room air with oxygen saturation ranging from 90-93%. RT noted that the patient was short of breath quickly with minimal activity. Overnight the patient dropped to 86% on room air when he was up to the bathroom. He denies pleuritic pain and describes minimal cough. He reports no nausea or abdominal pain. He reports that breathing treatments are making him shaky and "crazy" today. He previously told respiratory therapy that he use Spiriva at home but tells me he uses Symbicort at home in the past but has been out of it for a couple of weeks and then said he's been out of it for several months when I suggested that being out of his inhaler may be contributing to current symptoms. He has when necessary albuterol at home but doesn't use it because he doesn't think it helps. The patient was resting comfortably with the head of the bed elevated about 10 Respirations were nonlabored with decreased airflow throughout, breath sounds were clear, no wheezing was apparent today Cardiac rhythm regular, no lower extremity edema, calves nontender CTA of the chest obtained-no evidence of pulmonary emboli by my review, films reviewed with the patient demonstrating small nodular area in the left upper lobe. Nocturnal oximetry to be obtained overnight. Patient advised social work that he would like to consider hospice-will try to address with patient when family is not present as social work indicates family is reluctant to consider this step. Discontinue IV fluids after current bag infused. Continue to hold hydrochlorothiazide, sodium/potassium improved. Anticipate resuming Symbicort at discharge; Xopenex being used currently due to adrenergic symptoms with albuterol. Supplemental history provided by social work and respiratory therapy. Hospital Course Summary Disclaimer: The visit summary below is not to be considered part of the above Progress Note.
--- NOTE | 2017-06-13 16:05 | CT Scan Report ---
Indication: dyspnea, lung cancer PROCEDURE: CT angio pulm emboli: Encounter: Initial Comparison: Chest x-ray dated June 12, 2017 and PET/CT dated March 13, 2017 Technique: Axial CT pulmonary angiographic phase images were performed through the chest after the administration of intravenous contrast. Coronal and Sagittal MIP reconstructed images were created and reviewed. Automated Exposure Control and Iterative Reconstruction dose reducing techniques were utilized. Contrast: Omnipaque 350 69 mL Findings: Pulmonary arteries: Exam is diagnostic to the subsegmental pulmonary arterial level. No filling defects identified to suggest a pulmonary embolus. Other findings: Severe emphysema. Chronic scarring and subpleural masslike nodularity in the left apex. Trace left effusion. Heart size and mediastinal contours are unremarkable. No pericardial effusion. The upper abdomen shows no acute findings. Impression: No pulmonary embolus or acute disease process seen. There is a preliminary report by virtual radiologic. .
[2017-06-13 23:13] VITALS: TEMP 98.4
[2017-06-14] MEDS: NS with KCL 20 mEq 20 MEQ/1,000 ML IV.SOLN IV SCH (04:32)
[2017-06-14 07:41] VITALS: RESP 18
[2017-06-14] MEDS: BUDESONIDE INH.SOLN 0.5mg/2ml NEB AEROSOL SCH (07:42)
[2017-06-14 08:45] VITALS: BP 127/86; PULSE 109
[2017-06-14] MEDS: LEVETIRACETAM 500 MG TABLET PO SCH (08:46)
[2017-06-14] MEDS ORDERED: ENOXAPARIN 40 MG/0.4 ML INJECTION SQ SCH (09:00)
[2017-06-14 10:53] VITALS: O2SAT 99
--- NOTE | 2017-06-14 12:51 | Discharge Instructions ---
Discharge Plan - Med Rec/Dispo Referrals/Follow Up: Tru House MD [Family Provider] - 2 Weeks Salo Ospina MD [Physician] - (As scheduled later in the week) Kaitlin Instructions: Using Oxygen at Home (DC) Prescriptions: New Budesonide/Formoterol Fumarate [Symbicort 160-4.5 Mcg Inhaler] 2 puff INH BID #1 inhaler LEVALBUTEROL 1.25mg/3ml NEB [XOPENEX 1.25mg/3ml] 1.25 mg AEROSOL RTQID PRN # 100 neb PRN Reason: Shortness Of Air/Wheezing Continue Albuterol Sulfate [Ventolin Hfa] 2 puff ORAL INH QID PRN #0 inhaler PRN Reason: SHORTNESS OF AIR/WHEEZING levetiracetam 500 mg tablet 500 mg PO BID #60 tab Changed Nebivolol [Bystolic] 1 tab PO DAILY #0 Discontinued Lisinopril/Hydrochlorothiazide [Lisinopril-Hctz 20-12.5 mg Tab] 1 tab PO DAILY #30 Discharge Instructions/Outpatient Orders: Final Provider Discharge Instructions Location: Determined By Patient - Disposition 01 Discharged Home, Self-Care
[2017-06-14] MEDS: SALINE FLUSH 10ml SYRINGE IVF PRN (14:37)
--- NOTE | 2017-06-14 19:16 | Discharge Summary ---
Discharge Information Date of admission: 06/12/17 16:34 Anticipated date of discharge: 06/14/17 Attending Physician: Teresita Garcia MD Primary care physician: Tru House MD - Discharge Diagnosis Discharge Diagnosis: Hypoxic respiratory failure, acute COPD Stage IV lung cancer - Procedures Procedures: Ambulatory oximetry on 06/14 on room air demonstrated desaturation to 84% with activities, 2 L supplemental oxygen required to maintain saturation above 90%. Oxygen saturation at rest on room air was 89%. Overnight oximetry on room air 06/13-06/14 demonstrated minor desaturations with 6 minutes spent below 89% and 1 desaturations into the upper 70s. - Laboratory Labs: White count on admission was 3.3, hemoglobin 9.1, platelet count 120,000 Blood gas obtained during initial assessment on room air: 7.48/36//27 84% saturation Admission chemistries sodium 127, potassium 3.0, creatinine 0.9, proBNP 512 06/14/17 04:15 06/14/17 04:15 - Radiology Radiology: Chest x-ray on admission demonstrated mild pulmonary vascular congestion. CTA on 06/13 demonstrated: Pulmonary arteries: Exam is diagnostic to the subsegmental pulmonary arterial level. No filling defects identified to suggest a pulmonary embolus. Other findings: Severe emphysema. Chronic scarring and subpleural masslike nodularity in the left apex. Trace left effusion. Heart size and mediastinal contours are unremarkable. No pericardial effusion. The upper abdomen shows no acute findings. History of Present Illness HPI: Mr Lopez is a pleasant 67 yr old gentleman who is well known to the hospitalist services . He was recently admitted on April 25 through April 27 under the hospitalist services. He has a known history of stage IV lung cancer with metastatic disease disease to the brain, along with probable renal cell carcinoma. He has been under the care of Dr. Ospina and has been undergoing radiation treatment. No chemo for 3 weeks. He is following in the outpatient setting with Dr. 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 He recommended continuing on Keppra 500 milligrams twice a day at his last apt on may 11. Patient reports that he has had increased shortness of breath for approximately one week. Today it got significantly worse which prompted him to see his primary care provider, Dr. Hosue. He was hopeful for a prescription for oxygen and to be able to be discharged home, however, his primary care provider felt that he needed more acute evaluation. Patient was sent to the emergency room where he was evaluated. He was found to be pancytopenic with WBC 3.3, Hgb 9.1, HCT 25.9, Plt 120. Sodium was low at 127, potassium 3.0, BUN 23, creatinine 0.9, troponin negative, proBNP 512. ABG is obtained showing pH of 7.80, pCO2 36, pO2 45, bicarbonate 27. Room air saturations 84%. Patient is requiring 1.5L of oxygen by nasal cannula to maintain adequate saturations. Given this newfound hypoxia, the hospitalist services were contacted and accepted patient for inpatient admission for further evaluation and treatment. Is expected that his stay will be greater than 2 overnights. Patient does wish to be a do not resuscitate Hospital Course This is a general summary of the patient's hospital course. For more details refer to the complete medical record. Hospital course: Impression Acute respiratory failure with hypoxia Pancytopenia Hyponatremia, resolved Hypokalemia, resolved Stage IV adenocarcinoma lung cancer COPD Kidney cancer Brain metastasis Hypertension Macular degeneration Neuropathy Plan Mr. Lopez was admitted with hypoxia of uncertain etiology. Chest x-ray suggested minor volume overload although clinically that was inconsistent with presentation. The patient's blood pressure was low normal and he received low- volume fluid in conjunction with discontinuation of lisinopril/HCTZ and reduction in dose of Bysystolic. Supplemental oxygen was initiated in the emergency room and the patient subsequently underwent CT imaging of the lungs on 06/13 following hydration. There is no evidence of pulmonary emboli. Advanced emphysema was evidence as has been previously known. Patient did not have symptoms that suggested an acute exacerbation but it was learned that he has not been utilizing Symbicort after it ran out a month or 2 ago and typically is not using her rescue inhaler at home. With use of nebulized medications he describes improvement in symptoms and oxygenation improved overall although exertional dyspnea/hypoxia persisted and home oxygen was coordinated on the date of discharge. Hypoxia varies significantly from one day to the next based on short observation. In the hospital. The patient did not tolerate albuterol well and was converted to Xopenex for rescue medication. Electrolytes improved progressively through the hospital course as stated blood pressure. On 06/14 patient was felt stable for discharge home. He has additional imaging scheduled as an outpatient on 06/15 to reassess status of malignancy. He indicated that he is considering hospice depending on outcome of upcoming testing. Home oxygen at 2 L was prescribed for activities, when necessary, and at night. Prior to discharge the patient was alert, respirations are nonlabored at rest but becomes moderately labored with minor activities, breath sounds are diminished throughout without wheezing at the time of my assessment. Symbicort was resumed and patient was given prescription for Xopenex to be used with nebulizer as needed. Lisinopril/HCTZ was discontinued and Bystolic dose was decreased to 5 mg daily from 7.5 mg daily. He is asked to follow up with Dr. Ospina later this week as planned. He is additionally asked to follow-up with Dr. House an approximate 2 weeks to reassess blood pressure and electrolytes. Time spent with patient: discharge greater than 30 minutes Discharge Plan - Med Rec/Dispo Referrals/Follow Up: Tru House MD [Family Provider] - 2 Weeks Salo Ospina MD [Physician] - (As scheduled later in the week) Kaitlin Instructions: Using Oxygen at Home (DC), Hypoxia (GEN) Prescriptions: New Budesonide/Formoterol Fumarate [Symbicort 160-4.5 Mcg Inhaler] 2 puff INH BID #1 inhaler LEVALBUTEROL 1.25mg/3ml NEB [XOPENEX 1.25mg/3ml] 1.25 mg AEROSOL RTQID PRN # 100 neb PRN Reason: Shortness Of Air/Wheezing Continue Albuterol Sulfate [Ventolin Hfa] 2 puff ORAL INH QID PRN #0 inhaler PRN Reason: SHORTNESS OF AIR/WHEEZING levetiracetam 500 mg tablet 500 mg PO BID #60 tab Changed Nebivolol [Bystolic] 1 tab PO DAILY #0 Discontinued Lisinopril/Hydrochlorothiazide [Lisinopril-Hctz 20-12.5 mg Tab] 1 tab PO DAILY #30 Discharge Instructions/Outpatient Orders: Final Provider Discharge Instructions Location: Determined By Patient - Disposition 01 Discharged Home, Self-Care
== END 2017-06-14 14:25 | disposition home or self-care (01) | DRG 189 ==
LOC: ED 14:34 → MED 16:34
PROVIDERS: ADMIT Internal Medicine; ATTEND Internal Medicine